=== PATIENT | female | born 1965 ===

== ENCOUNTER 2020-09-21 09:46 | Outpatient (REF) | payer OTHER, SELFPAY | END 2020-09-21 09:47 | disposition home or self-care (01) | LOC: HO.LAB 09:46 | PROVIDERS: PCP Hospitalist; Visit Provider Internal Medicine | DX: Z20.828 Contact with and (suspected) exposure to other viral communicable diseases (principal) | CPT/HCPCS: C9803; U0003 ==

== ENCOUNTER 2020-09-28 08:56 | Outpatient (REF) | payer OTHER, SELFPAY ==
--- NOTE | 2020-09-28 09:22 | XR_ITS ---
EXAMINATION: XR HAND, RIGHT CLINICAL INFORMATION: Pain in the joints of the right hand COMPARISON: 05/22/2020 TECHNIQUE: PA, lateral, and oblique views of the right hand. FINDINGS: There is no fracture or dislocation. Alignment is anatomic. Joint space narrowing at the interphalangeal joints, particularly at the proximal interphalangeal joint of the fifth digit and distal interphalangeal joint of the fourth digit. Small osteophytes are noted. Small osteophytes at the first carpometacarpal joint. No osseous erosion. Mild soft tissue swelling. XR/XR hand RT min 3V IMPRESSION: Mild arthritic changes, mostly throughout the interphalangeal joints.
[2020-09-28 10:33] LABS: Hematocrit 42.9 % (37-47); Hemoglobin 13.7 g/dl (12.0-16.0); Mean Corpuscular HGB Conc 31.9 g/dl (31.0-35.0); Mean Corpuscular Hemoglobin 28.4 pg (27.0-33.0); Mean Platelet Volume 10.1 fL (9.4-12.3); Platelet Count 310 X10*3/uL (160-400); Red Blood Count 4.82 X10*6/uL (4.20-5.50); Red Cell Distribution Width 13.2 % (11.0-16.0); White Blood Count 6.2 X10*3/uL (4.8-10.8)
[2020-09-28 11:27] LABS: Alanine Aminotransferase 17 U/L (0-31); Albumin Level 4.3 g/dL (3.5-5.0); Alkaline Phosphatase 82 U/L (39-117); Anion Gap 13 (12-20); Aspartate Amino Transferase 19 U/L (5-31); Bilirubin Direct 0.2 mg/dL (0.0-0.5); Bilirubin Total 0.5 mg/dL (0.0-1.0); Blood Urea Nitrogen 14 mg/dL (9-16); Calcium 9.5 mg/dL (8.4-10.2); Carbon Dioxide 27 mmol/L (22-29); Chloride 104 mmol/L (96-108); Cholesterol 177 mg/dL; Estimated Glomerular Filt Rate > 60; Glucose Random 105 mg/dL (60-115); HDL Cholesterol 42 mg/dL; LDL Cholesterol Calculated 98 mg/dl; Potassium 3.9 mmol/l (3.3-5.1); Sodium 140 mmol/L (135-145); Total Protein 7.8 g/dL (6.5-8.0); Triglycerides 188 mg/dL; Uric Acid 6.2 mg/dL (2.4-5.7)
[2020-09-28 11:34] LABS: TSH reflex Free T4 0.79 mIU/mL (0.32-4.0)
[2020-09-28 11:38] LABS: Rheumatoid Factor < 15.0 IU/mL (<15.0)
[2020-09-28 11:41] LABS: Erythrocyte Sedimentation Rate 21 MM/HR (0-20)
[2020-09-30 17:56] LABS: CRP High Sensitivity 6.4 mg/L
== END 2020-09-28 08:57 | disposition home or self-care (01) ==
LOC: HO.LAB 08:56
PROVIDERS: PCP Hospitalist; Visit Provider Hospitalist
DX: M25.541 Pain in joints of right hand (principal)
CPT/HCPCS: 36415; 73130; 80048; 80061; 80076; 84443; 84550; 85027; 85652; 86141; 86431

== ENCOUNTER 2020-10-08 14:02 | Outpatient (REF) | payer OTHER, SELFPAY | END 2020-10-08 14:03 | disposition home or self-care (01) | LOC: HO.LAB 14:02 | PROVIDERS: Visit Provider Internal Medicine | DX: Z20.828 Contact with and (suspected) exposure to other viral communicable diseases (principal) | CPT/HCPCS: C9803; U0003 ==

== ENCOUNTER 2020-10-26 10:46 | Outpatient (REF) | payer OTHER, SELFPAY ==
[2020-10-26 14:13] LABS: Erythrocyte Sedimentation Rate 26 MM/HR (0-20)
[2020-10-26 14:36] LABS: C Reactive Protein 0.68 mg/dL (< or = 0.50); Uric Acid 5.9 mg/dL (2.4-5.7)
== END 2020-10-26 10:47 | disposition home or self-care (01) ==
LOC: HO.WFDLDS 10:46
PROVIDERS: PCP Hospitalist; Visit Provider Hospitalist
DX: M19.041 Primary osteoarthritis, right hand (principal)
CPT/HCPCS: 36415; 84550; 85652; 86140

== ENCOUNTER 2021-03-24 11:50 | Outpatient (REF) | payer OTHER, SELFPAY ==
[2021-03-24 14:03] LABS: MANUAL DIFF FLAG NO
[2021-03-24 14:10] LABS: Basophils Absolute Auto 0.1 X10*3/uL (0.0-0.2); Basophils Percent Auto 0.5 % (0-2); Eosinophils Absolute Auto 0.2 X10*3/uL (0.0-0.4); Eosinophils Percent Auto 1.9 % (0-4); Hematocrit 41.8 % (37-47); Hemoglobin 13.6 g/dl (12.0-16.0); Imm Gran Abs Auto 0.02 X10*3/uL (0.00-0.03); Imm Gran Pct Auto 0.2 % (0.0-0.4); Lymphocytes Absolute Auto 2.3 X10*3/uL (1.2-4.9); Lymphocytes Percent Auto 24.1 % (20-40); Mean Corpuscular HGB Conc 32.5 g/dl (31.0-35.0); Mean Corpuscular Hemoglobin 28.7 pg (27.0-33.0); Mean Corpuscular Volume 88.2 fL (80-98); Mean Platelet Volume 10.1 fL (9.4-12.3); Monocytes Absolute Auto 0.7 X10*3/uL (0.1-1.2); Monocytes Percent Auto 7.6 % (2-11); Neutrophils Absolute Auto 6.3 X10*3/uL (2.0-8.3); Neutrophils Percent Auto 65.7 % (45-73); Platelet Count 359 X10*3/uL (160-400); Red Blood Count 4.74 X10*6/uL (4.20-5.50); Red Cell Distribution Width 13.2 % (11.0-16.0); White Blood Count 9.5 X10*3/uL (4.8-10.8)
[2021-03-24 14:34] LABS: B Type Natriuretic Peptide < 10 pg/mL (<100); Troponin-I High Sensitivity < 3.5 ng/L (<3.5-17.0)
[2021-03-24 14:42] LABS: Alanine Aminotransferase 21 U/L (0-31); Albumin Level 4.3 g/dL (3.5-5.0); Alkaline Phosphatase 87 U/L (39-117); Anion Gap 13 (12-20); Aspartate Amino Transferase 17 U/L (5-31); Bilirubin Total 0.3 mg/dL (0.0-1.0); Blood Urea Nitrogen 17 mg/dL (9-16); Calcium 9.7 mg/dL (8.4-10.2); Carbon Dioxide 26 mmol/L (22-29); Chloride 105 mmol/L (96-108); Estimated Glomerular Filt Rate 57; Glucose Random 137 mg/dL (60-115); Sodium 140 mmol/L (135-145)
[2021-03-24 15:12] LABS: Estimated Average Glucose 114 mg/dL; Hemoglobin A1c % 5.6 %
== END 2021-03-24 11:51 | disposition home or self-care (01) ==
LOC: HO.WFDLDS 11:50
PROVIDERS: Visit Provider Physician Assistant
DX: R07.9 Chest pain, unspecified (principal); M54.9 Dorsalgia, unspecified; R29.898 Other symptoms and signs involving the musculoskeletal system; M54.41 Lumbago with sciatica, right side; G89.29 Other chronic pain; R20.0 Anesthesia of skin; E11.9 Type 2 diabetes mellitus without complications
CPT/HCPCS: 36415; 80053; 83036; 83880; 84484; 85025

== ENCOUNTER 2021-03-25 09:27 | Outpatient (REF) | payer OTHER, SELFPAY ==
--- NOTE | ~2021-03-25 | XR_ITS ---
EXAMINATION: XR CHEST CLINICAL INFORMATION: Chest pain COMPARISON: Previous chest x-ray most recent October 2019 TECHNIQUE: 2 views of the chest were obtained. FINDINGS: The cardiac and mediastinal contours are stable. The lungs are clear. There is no pleural effusion or pneumothorax. There are degenerative changes of the spine. XR/XR chest 2V IMPRESSION: No evidence for acute disease in the chest.
--- NOTE | ~2021-03-25 | XR_ITS ---
EXAMINATION: XR LUMBOSACRAL SPINE CLINICAL INFORMATION: Lumbago with sciatica, right side. COMPARISON: None TECHNIQUE: Three views of the lumbosacral spine. FINDINGS: There is normal lumbar lordosis. The vertebral heights and alignment is normal. There is loss of L1-L2, L2-L3 and minimal loss of L5-S1 disc heights. There is moderate right L4-L5 and mild L5-S1 facet joint arthropathy and hypertrophy. No acute fracture or lytic process seen. The paravertebral soft tissues are normal. XR/XR lumbar spine 2-3V IMPRESSION: There is moderate right L4-L5 and L5-S1 facet joint arthropathy.
== END 2021-03-25 09:28 | disposition home or self-care (01) ==
LOC: HO.XRAY 09:27
PROVIDERS: PCP Hospitalist; Visit Provider Physician Assistant
DX: R07.9 Chest pain, unspecified (principal); M54.6 Pain in thoracic spine; G89.29 Other chronic pain; M54.41 Lumbago with sciatica, right side
CPT/HCPCS: 71046; 72100

== ENCOUNTER 2021-04-29 11:01 | Outpatient (REF) | payer OTHER, SELFPAY ==
--- NOTE | ~2021-04-29 | MM_ITS ---
EXAMINATION: MM SCREENING DIGITAL BREAST TOMOSYNTHESIS, BILATERAL CLINICAL INFORMATION: Screening. Asymptomatic. The lifetime risk of breast cancer based on the Tyrer-Cuzick Model is 6%. COMPARISON: Mammography: 05/13/2019, 04/24/2018, 04/02/2017 TECHNIQUE: Digital breast tomosynthesis is performed in both the craniocaudal and mediolateral oblique views along with computer-aided detection (CAD). Synthesized 2D images are generated from the tomosynthesis. FINDINGS: There are scattered areas of fibroglandular density (ACR BI-RADS breast composition Category b). There are no significant masses, abnormal calcifications, or other abnormalities. Parenchymal pattern is similar to prior studies. No developing density. MM/MM tomosynthesis screening BI IMPRESSION: No mammographic evidence of malignancy. ASSESSMENT: BI-RADS 1: Negative RECOMMENDATION: Routine annual mammography screening. This patient's information was entered into a reminder system with a target due date for their next mammogram.
== END 2021-04-29 11:02 | disposition home or self-care (01) ==
LOC: HO.MAMMO 11:01
PROVIDERS: Visit Provider Hospitalist
DX: Z12.31 Encounter for screening mammogram for malignant neoplasm of breast (principal)
CPT/HCPCS: 77063; 77067

== ENCOUNTER → 2021-06-29 09:51 | Outpatient (BNVA) | payer OTHER, SELFPAY | PROVIDERS: PCP Family Medicine; Visit Provider Nurse Practitioner Family | DX: M47.816 Spondylosis without myelopathy or radiculopathy, lumbar region (principal); M53.3 Sacrococcygeal disorders, not elsewhere classified | CPT/HCPCS: 99202 ==

== ENCOUNTER → 2021-07-13 13:26 | Outpatient (BNVA) | payer OTHER, SELFPAY | PROVIDERS: PCP Family Medicine; Visit Provider Nurse Practitioner Family | DX: M47.816 Spondylosis without myelopathy or radiculopathy, lumbar region (principal); M53.3 Sacrococcygeal disorders, not elsewhere classified; M25.562 Pain in left knee; M25.561 Pain in right knee; Z88.5 Allergy status to narcotic agent; Z88.0 Allergy status to penicillin; Z88.8 Allergy status to other drugs, medicaments and biological substances; Z79.899 Other long term (current) drug therapy | CPT/HCPCS: 99212 ==

== ENCOUNTER → 2021-08-05 12:59 | Outpatient (BNVA) | payer OTHER, SELFPAY | PROVIDERS: Visit Provider Nurse Practitioner Family | DX: Z51.81 Encounter for therapeutic drug level monitoring (principal); M47.816 Spondylosis without myelopathy or radiculopathy, lumbar region; M53.3 Sacrococcygeal disorders, not elsewhere classified | CPT/HCPCS: 99212 ==

== ENCOUNTER → 2021-08-10 10:13 | Outpatient (BNVA) | payer OTHER, SELFPAY | PROVIDERS: PCP Hospitalist; Visit Provider Nurse Practitioner Family | DX: M47.816 Spondylosis without myelopathy or radiculopathy, lumbar region (principal); M17.0 Bilateral primary osteoarthritis of knee | CPT/HCPCS: 99212 ==

== ENCOUNTER 2021-08-16 09:32 | Outpatient (RCR) | payer OTHER, SELFPAY ==
--- NOTE | 2021-08-16 12:41 | MHC.PT.EP ---
[facility] [place] Office [place] Office [place] Office [address] Paulina Echols [address] [phone] F: [phone] F: [phone] F: [phone] F: [phone] Physical Therapy Plan of Care Date of Evaluation: Date of Surgery: n/a Diagnosis: sacrococcygeal disorder Assessment: Pt is a 56/yo F referred to PT for eval/treat of sacrococcygeal disorder. Signs and symptoms are consistent with lumbosacral and illiosacral disorder primary affecting R side more than L resulting in significant decrease in tolerance for WB activities like standing and ambulating, decreased tolerance to perform her personal care, difficulty with bed mobility, disrupted sleep, decreased tolerance for lifting objects off of the floor, and ability to participate in her social activities with family and peers. Functional limitations are secondary to decreased lumbar and hip ROM with empty end feel in all direction primary effecting R side, decreased R LE weight bearing and forward lean in standing, gait deviation (potentially d/t pt?s chief c/o), L ASIS elevated (LLD), hx of fall at the site of pain, and significant pain with radicular symptoms R side (symptoms centralized with extension). pt is deemed appropriate to receive skilled PT to address her physical impairment and improve her functional ability. Frequency and Duration: The patient will be seen 2x/wk for 5 wks Short Term Goals: Iniitate HEP w/ evidence of compliance pt will reports less than 4/10 pain at rest Shelter Goals: I w/ HEP pt will be able to able to perform her personal care without increased Symptoms; initially - pt is unable to perform any personal care d/t pain or without the help. pt will be able to ambulate for at least an hour; initial - her pain prevents her from walking intermediate distance pt will improve her Chet score by at least 15 points; initial score 36/50 Treatment Plan: Modalities to reduce pain, spasms and effusion. Manual therapy to restore motion and function. Therapeutic exercise to improve strength and flexibility. Neuromuscular re-education for posture and balance. Therapeutic activities to return to functional activities of daily living. Electronically signed by: Tyshawn Cross, PT Please sign and return to therapist. Thank you for your referral.
--- NOTE | 2021-11-28 10:31 | MHC.PT.DC ---
[facility] [place] Office [place] Office [place] Office [address] Paulina Echols [address] [phone] F: [phone] F: [phone] F: [phone] F: [phone] Physical Therapy Discharge Report Diagnosis: sacrococcygeal disorder Date of Surgery: n/a Date of Evaluation: 08/16/21 Date of Discharge: 11/28/21 Treatments to Date: 1 Cancellations to Date: 3 No Shows to Date: 3 Discharge Status: Visit Non-compliance Discharge Summary: Pt did not f/u with therapy after her initial eval despite outreach. DC d/t visit non compliance. Electronically signed by: Tyshawn Merchant PT. Please sign and return to therapist. Thank you for your referral.
== END 2021-11-28 10:31 | disposition home or self-care (01) ==
LOC: HO.PTCHIC 09:32
PROVIDERS: PCP Family Medicine; Visit Provider Nurse Practitioner Family
DX: M53.3 Sacrococcygeal disorders, not elsewhere classified (principal)
CPT/HCPCS: 97014; 97110; 97161

== ENCOUNTER 2021-09-12 12:34 | Outpatient (REF) | payer OTHER, SELFPAY | END 2021-09-12 12:35 | disposition home or self-care (01) | LOC: HO.LNP 12:34 | PROVIDERS: Visit Provider Physician Assistant Medical | DX: N39.0 Urinary tract infection, site not specified (principal) | CPT/HCPCS: 87086; 87088; 87186 ==

== ENCOUNTER 2021-10-20 19:03 | Outpatient (REF) | payer OTHER, SELFPAY | END 2021-10-20 19:04 | disposition home or self-care (01) | LOC: HO.LNP 19:03 | PROVIDERS: Visit Provider Hospitalist | DX: N39.0 Urinary tract infection, site not specified (principal) | CPT/HCPCS: 87086; 87088; 87186 ==

== ENCOUNTER 2022-04-20 10:27 | Outpatient (REF) | payer OTHER, SELFPAY ==
[2022-04-20 15:08] LABS: CT PCR NOT DETECTED (Not Detect.); NG PCR NOT DETECTED (Not Detect.)
[2022-04-27 12:46] LABS: HPV mRNA E6/E7 rflx Not Detected (Not Detected)
== END 2022-04-20 10:28 | disposition home or self-care (01) ==
LOC: HO.LAB 10:27
PROVIDERS: Visit Provider Advanced Practice Midwife
DX: Z01.419 Encounter for gynecological examination (general) (routine) without abnormal findings (principal); Z11.51 Encounter for screening for human papillomavirus (HPV); Z20.2 Contact with and (suspected) exposure to infections with a predominantly sexual mode of transmission
CPT/HCPCS: 87491; 87591; 87624; 88142

== ENCOUNTER 2022-05-30 09:04 | Outpatient (REF) | payer OTHER, SELFPAY ==
[2022-05-30 11:24] LABS: Hematocrit 41.4 % (37.0-47.0); Hemoglobin 13.4 g/dl (12.0-16.0); Mean Corpuscular HGB Conc 32.4 g/dl (31.0-35.0); Mean Corpuscular Hemoglobin 28.2 pg (27.0-33.0); Mean Platelet Volume 9.8 fL (9.4-12.3); Platelet Count 343 X10*3/uL (160-400); Red Blood Count 4.76 X10*6/uL (4.20-5.50); Red Cell Distribution Width 13.5 % (11.0-16.0); White Blood Count 6.7 X10*3/uL (4.8-10.8)
[2022-05-30 11:36] LABS: Estimated Average Glucose 117 mg/dL; Hemoglobin A1c % 5.7 %
[2022-05-30 11:51] LABS: Alanine Aminotransferase 20 U/L (0-31); Albumin Level 4.3 g/dL (3.5-5.0); Alkaline Phosphatase 82 U/L (39-117); Anion Gap 12 (12-20); Aspartate Amino Transferase 19 U/L (5-31); Bilirubin Total 0.4 mg/dL (0.0-1.0); Blood Urea Nitrogen 13 mg/dL (9-16); Calcium 9.2 mg/dL (8.4-10.2); Carbon Dioxide 28 mmol/L (22-29); Chloride 104 mmol/L (96-108); Cholesterol 177 mg/dL; Estimated Glomerular Filt Rate > 60; Glucose Random 95 mg/dL (60-115); HDL Cholesterol 41 mg/dL; LDL Cholesterol Calculated 96 mg/dl; Potassium 4.3 mmol/L (3.3-5.1); Sodium 140 mmol/L (135-145); Total Protein 7.9 g/dL (6.5-8.0); Triglycerides 204 mg/dL
== END 2022-05-30 09:05 | disposition home or self-care (01) ==
LOC: HO.WFDLDS 09:04
PROVIDERS: Visit Provider Hospitalist
DX: Z00.00 Encounter for general adult medical examination without abnormal findings (principal); E11.9 Type 2 diabetes mellitus without complications
CPT/HCPCS: 36415; 80053; 80061; 83036; 84443; 85027

== ENCOUNTER → 2022-06-06 14:52 | Outpatient (BNVA) | payer OTHER, SELFPAY | PROVIDERS: PCP Family Medicine; Referring Provider Family Medicine; Visit Provider Internal Medicine Cardiovascular Disease | DX: R07.9 Chest pain, unspecified (principal); R00.2 Palpitations | CPT/HCPCS: 99202 ==

== ENCOUNTER 2022-06-26 10:55 | Outpatient (REF) | payer OTHER, SELFPAY ==
--- NOTE | ~2022-06-26 | MM_ITS ---
EXAMINATION: MM SCREENING DIGITAL BREAST TOMOSYNTHESIS, BILATERAL CLINICAL INFORMATION: Screening. Asymptomatic. The lifetime risk of breast cancer based on the Tyrer-Cuzick Model is 11%. COMPARISON: Mammography: 04/29/2021, 05/13/2019, 04/24/2018, 04/02/2017 TECHNIQUE: Digital breast tomosynthesis is performed in both the craniocaudal and mediolateral oblique views along with computer-aided detection (CAD). Synthesized 2D images are generated from the tomosynthesis. FINDINGS: There are scattered areas of fibroglandular density (ACR BI-RADS breast composition Category b). There are no significant masses, abnormal calcifications, or other abnormalities. There is no developing density or architectural abnormality. There are no significant changes from prior studies. The axilla and skin contours are unremarkable. MM/MM tomosynthesis screening BI IMPRESSION: No mammographic evidence of malignancy. ASSESSMENT: BI-RADS 1: Negative RECOMMENDATION: Routine annual mammography screening. This patient's information was entered into a reminder system with a target due date for their next mammogram.
== END 2022-06-26 10:56 | disposition home or self-care (01) ==
LOC: HO.MAMMO 10:55
PROVIDERS: PCP Family Medicine; Visit Provider Family Medicine
DX: Z12.31 Encounter for screening mammogram for malignant neoplasm of breast (principal)
CPT/HCPCS: 77063; 77067

== ENCOUNTER → 2022-07-12 08:55 | Outpatient (REF) | payer OTHER, SELFPAY ==
--- NOTE | ~2022-07-12 | NM_ITS ---
EXERCISE MYOCARDIAL PERFUSION STUDY INDICATION: Chest pain, assess for coronary disease and ischemia TECHNIQUE: The patient was brought in for an exercise perfusion study on 07/12/2022. Patient performed exercise as per Ayan protocol and was injected 25 mCi of sestamibi once target heart rate was achieved. Images were obtained using the SPECT gamma camera interlaced with the gating device. Images were obtained in supine position. Resting perfusion study was performed on 07/13/2022. Patient was administered 25 mCi of sestamibi intravenously at rest. Images were then obtained in supine position. Total DLP 89mGy-cm. Images were processed with the software and compared side to side in short axis, horizontal long axis and vertical long axis views. FINDINGS: Raw images were reviewed. The stress perfusion study showed no significant perfusion abnormality. Both uncorrected as well as CT attenuation corrected images reviewed. The gated study shows normal LV systolic function with calculated LVEF of 69%. LV cavity is normal in size. The gated study shows normal wall thickening and contraction of segments. Resting study shows no significant perfusion abnormality. Gating at rest reveals normal wall motion with ejection fraction at 54%. The findings are consistent with no reversible or fixed perfusion abnormality. NM/NM cardiolite stress test IMPRESSION: 1. Myocardial perfusion imaging study shows normal myocardial perfusion. 2. Gated LVEF is 69% during stress and 54% during rest. 3. Transient ischemic dilatation not present. EKG component of the test reported separately.
--- NOTE | 2022-07-12 09:01 | CA_ITS ---
Acquisition Time: 2022-07-12 09:15:15 Total Exercise Time: 00:06:15 Test Indications: Abnormal ECG Medications: ALBUTEROL LOSARTAN Protocol: AUTUMN Max HR: 151 BPM 91% of Pred: 165 BPM Max BP: 142/082 mmHG Max Work Load: 7.3 METS Exercise stress test with exercise 6 min 15 sec of Autumn protocol, with mild sob, no chest discomfort, with isolated PVCs, with normotensive response to exercise, without EKG changes meeting criteria for ischemia. Nuclear images pending. Test reviewed with Dr Nayak Referred By: Tony Nayak Overread By: DIANA FREITAS
--- NOTE | 2022-07-12 09:01 | HM_ITS ---
* Total monitoring time 6 days and 23 hours. * Underlying rhythm is sinus. Average rate 79/Min. Range 40 to 122/Min. * No significant pauses. * Rare ventricular ectopy. 3 morphologies. Few couplets. Overall burden less than 1% * Very rare supraventricular ectopy with minimal burden. * No patient events. MTDD
== END ==
LOC: HO.CARD 08:55
PROVIDERS: PCP Family Medicine; Visit Provider Internal Medicine Cardiovascular Disease
DX: R07.9 Chest pain, unspecified (principal); R00.2 Palpitations
CPT/HCPCS: 78452; 93017; 93242; A9500

== ENCOUNTER 2022-07-17 17:16 | Emergency (ER) | payer OTHER, SELFPAY ==
--- NOTE | ~2022-07-17 | XR_ITS ---
EXAMINATION: XR hand wrist LT CLINICAL INFORMATION: Reason for Exam pain COMPARISON: Left hand radiographs 07/29/2018 TECHNIQUE: 3 views left hand and scaphoid view left wrist FINDINGS: No acute fracture or dislocation. Joint spaces at the wrist are maintained. No chondrocalcinosis or erosions. Scapholunate interval is preserved. MCP joint spaces are maintained. Mild IP joint osteoarthritic changes characterized by subchondral sclerosis and small osteophytes, most prominently at the fifth DIP joint. XR/XR hand wrist LT IMPRESSION: 1. No acute osseous injury. 2. Mild IP joint osteoarthritis.
[2022-07-17 17:24] VITALS: BP 139/82; PULSE 76; RESP 16; TEMP 36.8; O2SAT 99; BMI 33.3
--- NOTE | 2022-07-17 18:14 | ED_ITS ---
HPI - Extremity Problem General Chief complaint: Extremity Problem Stated complaint: L Wrist Swelling No Injury Time Seen by Provider: 07/17/22 18:07 Source: patient Mode of arrival: ambulatory Limitations: no limitations History of Present Illness HPI Narrative: 57 yo female with history of asthma, HTN, RA, depression who is left handed presents with 3 weeks of left wrist pain/swelling despite using tylenol at home. Has appointment with orthopedics end of this month. No weakness, numbness, tingling. No known injury or trauma. Related Data Home Medications Medication Instructions Recorded Confirmed acetaminophen 500 mg tablet 500 mg PO Q6H PRN 06/28/22 (Tylenol Extra Strength) Previous Rx's Medication Instructions Recorded blood-glucose meter (FreeStyle #1 ea 11/19/20 Lite Meter kit) cane #1 ea 04/07/21 lancets 28 gauge (FreeStyle 1 gauge topical BID PRN 05/12/21 Lancets) hypoglycemia #100 caps blood sugar diagnostic (FreeStyle #100 strips 03/06/22 Lite Strips) losartan 25 mg tablet 25 mg PO BID #60 tabs 05/31/22 blood pressure monitor #1 ea 06/27/22 diclofenac sodium 1 % topical gel 2 g topical QID 30 days #100 grams 06/28/22 (Voltaren Arthritis Pain) Allergies Allergy/AdvReac Type Severity Reaction Status Date / Time codeine [CODEINE] Allergy Severe VOMITING Verified 06/28/22 14:44 buprenorphine Allergy Intermediate dizziness,nausea, Verified 06/28/22 14:44 vomiting lisinopril Allergy Intermediate cough Verified 06/28/22 14:44 naproxen [Naprosyn] Allergy Intermediate vomitting Verified 06/28/22 14:44 Penicillins [PENICILLINS] Allergy Intermediate RASH Verified 06/28/22 14:44 Review of Systems Review of Systems: Yes all other systems are reviewed and are negative Constitutional: Constitutional: Reports no additional constitutional complaints, Denies body ache(s), Denies chills, Denies fever(s), Denies headache(s) and Denies weakness Eyes: Eyes: Reports no additional eye complaints and Denies change in vision ENT: Reports system reviewed and no additional complaints, except as documented, Denies dizziness, Denies headache(s), Denies nasal congestion, Denies nasal discharge and Denies neck pain Cardiovascular: Cardiovascular: Reports no additional cardiovascular complaints, Denies chest pain, Denies leg edema and Denies dyspnea Respiratory: Respiratory: Reports no additional respiratory complaints, Denies cough and Denies dyspnea Gastrointestinal: Gastrointestinal: Reports no additional gastrointestinal complaints, Denies abdominal pain, Denies diarrhea, Denies nausea and Denies vomiting Genitourinary: Genitourinary: Reports no additional female genitourinary c omplaints and Denies urinary incontinence Musculoskeletal: Musculoskeletal: Reports no additional musculoskeletal complaints, Denies back pain, Reports arthralgias, Reports joint swelling, Reports limited range of motion, Denies neck pain, Denies numbness and Denies tingling Integumentary/Breasts: Skin/Breast: Reports system reviewed and no additional complaints, except as docu and Denies rash Neurologic: Reports system reviewed and no additional complaints, except as documented, Denies Abnormal speech present, Denies dizziness, Denies headache(s), Denies numbness, Denies tingling and Denies weakness PMFSH Past Medical History Attestation statement: The following information was validated with the patient. Source: old records reviewed and nursing notes reviewed Medical History Asthma History of depression HTN, goal below 130/80 Surgical History History of bilateral carpal tunnel release History of cholecystectomy History of sleeve gastrectomy History of trigger finger Family History Family History Father No problems noted. Mother Stroke Heart attack Uterine cancer Smoker Lung cancer Sister S/P KIERAN-BSO (total abdominal hysterectomy and bilateral salpingo- oophorectomy) Other Mental health disorder Substance use disorder Social History Social History Housing: Apartment Alcohol intake: never Patient Tobacco Use Status: Former Tobacco user Tobacco use type: Cigarette e-Cigarette/Vaping Use: Never Used Use of substances other than those prescribed or required for medical reasons: No Advance Directives: No Advance Directives Information Provided: No Patient : No service: No Current occupational status: disabled Sexual orientation: Straight/Heterosexual Gender identity: Female Cognitive needs: No Hearing needs: No Vision needs: Yes Physical Exam Vital Signs: Vital Signs: Last Vital Signs Temp 98.2 F 07/17/22 17:24 Pulse 76 07/17/22 17:24 Resp 16 07/17/22 17:24 BP 139/82 07/17/22 17:24 Pulse Ox 99 07/17/22 17:24 O2 Del Method 07/17/22 17:24 BMI result Body Mass Index 33.3 Const: General: cooperative, healthy appearing, comfortable and no acute distress Orientation/consciousness: patient oriented x3 Limitations: no limitations HEENT: Head: Yes normal to inspection Ears: hearing grossly normal bilaterally General nose exam: Normal external nose present Face and sinus: Yes normal facial exam Mouth: Normal oral and palatal mucosa present Throat: Yes posterior oropharynx normal Eyes: General: appearance normal, both eyes and all related structures Pupils: Equal, round and reactive pupils present Neck: Neck: Yes normal visual inspection Chest: Chest palpation & inspection: normal inspection of the chest Resp: Effort & Inspection: normal respiratory effort Auscultation: clear to auscultation bilaterally Cardio: Rate: regular rate Rhythm: regular rhythm Peripheral pulses: Peripheral pulses 2+ throughout GI: Inspection: Yes normal to inspection Palpation (GI): Soft to palpation and nontender Auscultation: normal bowel sounds Back/Spine/Pelvis: Thoracic/Lumbar Spine: thoracic and lumbar spine normal to inspection Skin: General skin exam: no rashes or lesions noted Neuro: General: patient oriented x3, no focal motor deficits and normal sensation to monofilament Cranial nerves: Yes Equal, round and reactive pupils present Cognition (Neuro): normal cognition Speech: No Abnormal speech present Gait exam (Neuro): Normal gait present Motor exam (neuro): 5/5 motor strength present throughout Extrem: Other: Positive Randy test. Tenderness over the medial distal left radius. Full range of motion. Neurovascularly intact distally. Palpable radial and ulnar pulses. Negative Tinel and Phalen sign General: Yes normal to inspection MDM - Extremity (Nontraumatic) MDM Narrative Medical decision making narrative: This is a 57-year-old female who is left-hand dominant who presents with 3 weeks of left wrist pain and swelling with no known injury or trauma. Positive Randy's test. Likely de Quervain. X-ray from triage shows arthritic changes. Patient has follow-up appointment with Orthopedics into this month. She has been trying Tylenol with no relief. She also has underlying rheumatoid arthritis. We discussed a course of prednisone but patient does not want to take this due to side effects in the past. She does have an allergy listed as vomiting to naproxen but is willing to try some ibuprofen which she has been able to tolerate in the past. She will be placed in a cock-up splint. Recommend follow-up with orthopedics for persistent symptoms. Reviewed rice at home. Medical Records Attestation: I reviewed the patient's medical records. Lab Data Attestation: I reviewed the patient's lab results. Discharge Plan Discharge Clinical Impression: Tendinitis, de Quervain's Patient Disposition: Home, Self-Care Instructions: De Quervain Disease (ED) Additional Instructions: Use the splint at all times Limit use of the hand. Apply ice. Take ibuprofen 600 mg 3 times daily as needed for pain. Take this with food. Keep your appointment with orthopedics as scheduled this month Prescriptions: No Action lancets [FreeStyle Lancets] 28 gauge misc 1 gauge topical BID PRN (Reason: hypoglycemia) Qty: 100 3RF (DME) FreeStyle Lite Strips Strip See Rx Instructions .ROUTE .COMPLEX Qty: 100 6RF Dose Instruction: USE NEEDED TWICE A DAY Rx Instructions: USE NEEDED TWICE A DAY losartan 25 mg tablet 25 mg PO BID Qty: 60 1RF Rx Instructions: take one daily for 5 days then increase to twice a day for bp target of at least 100/50 and no higher than 130/80 (DME) blood pressure monitor Kit See Rx Instructions .ROUTE .MEDSUPPLY Qty: 1 0RF Rx Instructions: Automatic, Digital. Dx: I10. Daily As directed, 999 days/lifetime (DME) cane Device See Rx Instructions .ROUTE .MEDSUPPLY Qty: 1 0RF Rx Instructions: Daily As directed, 999days/Lifetime. (DME) blood-glucose meter [FreeStyle Lite Meter] Kit See Rx Instructions .ROUTE .MEDSUPPLY Qty: 1 0RF Rx Instructions: for daily and prn blood sugars acetaminophen [Tylenol Extra Strength] 500 mg tablet 500 mg PO Q6H PRN diclofenac sodium [Voltaren Arthritis Pain] 1 % gel 2 g topical QID 30 Days Qty: 100 0RF Rx Instructions: apply to right shoulder Print Language: Swedish
--- NOTE | 2022-07-17 18:23 | PC.NURSE ---
patient a&ox3, c/o 06/21 left wrist pain, splint applied by tech per order, call sandra within reach, family at bedside, will continue to monitor
== END 2022-07-17 19:51 | disposition home or self-care (01) ==
PROVIDERS: Emergency Provider Emergency Medicine; PCP Family Medicine
DX: M65.4 Radial styloid tenosynovitis [de Quervain] (principal); R22.32 Localized swelling, mass and lump, left upper limb
CPT/HCPCS: 73110; 73130; 99283; 99284

== ENCOUNTER → 2022-07-26 12:49 | Outpatient (REF) | payer OTHER, SELFPAY ==
--- NOTE | 2022-07-26 12:54 | CA_ITS ---
Transthoracic Echocardiogram Patient (Last, First, Middle): Margot Kamara E Gender: Female Date of : 1965 Age: 57 Procedure Date: 07/26/2022 Procedure Type: Transthoracic Echocardiogram Location: OP Height: 149.86 cm Weight: 74.84 kg BSA: 1.70 m2 Heart Rate: bpm BP: 130 / 90 mmHg Grey Roll Man: TO Referring MD: Tony Nayak MD [employer] Mill Operator: Tony Nayak MD Symptoms: R00.2 - Palpitations Study Quality: Fair ECG Rhythm: Sinus Conclusions: - 1. Normal LV systolic function with grade 1 diastolic dysfunction 2. Normal cardiac valvular Doppler 3. Normal RV systolic pressure 4. No gross pericardial effusion Findings Left Ventricle Normal left ventricular size, thickness, and systolic function. The visually estimated ejection fraction is between 55-60%. Spectral Doppler is indicative of an impaired relaxation filling pattern. E/E prime ratio is <8, consistent with normal filling pressures. Evidence suggests grade I (mild) diastolic dysfunction. Right Ventricle Normal right ventricular cavity size and systolic function. Atria Both atria are normal in size. Interatrial shunt cannot be excluded. Aortic Valve Normal aortic valve structure and function. There is no aortic valve stenosis. There is no aortic valve regurgitation. Mitral Valve Normal mitral valve structure and function. There is trace mitral valve regurgitation. There is no mitral valve stenosis. Pulmonic Valve The pulmonic valve was not well visualized. Tricuspid Valve Likely normal tricuspid valve structure and function. There is trace tricuspid valve regurgitation. The right ventricular systolic pressure is normal. The right ventricular systolic pressure is 22 mmHg. Normal right atrial pressure. There is no evidence of pulmonary hypertension. Great Vessels All visible segments of the aorta are normal in size. The pulmonary artery was not well visualized. Venous The inferior vena cava is normal in size and collapses greater than 50% with inspiration. Pericardium/Pleural There is no evidence of pericardial effusion. Prior Study Comparison No prior study available for comparison. Measurements 2D Linear Measurements IVSd: 0.71 0.6-0.9/0.6-1.0 cm LVIDd: 4.30 3.9-5.3/4.2-5.9 cm LVIDd Index: 2.53 2.4-3.2/2.2-3.1 cm/m2 LVIDs: 2.59 2.0-3.6 cm LVPWd: 0.70 0.7-1.1 cm LA Diam: 2.50 2.7-3.8/3.0-4.0 cm LAIDs Index: 1.47 1.5-2.3 cm/m2 LV Mass: 110.73 67-162/88-224 g LV Mass Index: 65.13 43-95/49-115 g/m2 LVOT Diam: 2.00 3.0+(-)1.3 cm 2D Systolic Function EF 4C: 51.80 >55% EF 2C: 56.20 >55% Mitral Valve MV Pk E: 0.74 MV PK A: 0.75 MV Decel Time: 237.00 E/A: 1.00 E'Lateral: 9.36 E'Medial: 6.96 E/E' Med: 10.60 E/E' Lat: 7.90 PHT: 69.00 MVA PHT: 3.19 Decel Magoffin: 3.11 Aortic Valve AoV Pk Bobby: 1.31 AoV Mn Bobby: 0.92 AoV VTI: 0.25 AoV Pk Grad: 7.00 Aov Mn Grad: 4.00 ALEX Cont.VTI: 2.05 LVOT LVOT Pk Bobby: 0.85 LVOT Mn Bobby: 0.57 LVOT VTI: 0.17 LVOT Pk Grad: 3.00 LVOT Mn Grad: 1.00 LVOT Diam: 2.00 LVOT Area: 3.14 Diastolic Function MV Pk E: 0.74 MV Pk A: 0.75 E/A: 1.00 E'Medial: 6.96 E/E' Med: 10.60 E' Laterial: 9.36 E/E' Lat: 7.90 Right Ventricle TAPSE (mm): 20.40 TVS' Bobby: 10.10 Tricuspid Valve TR Pk Bobby: 2.17 TR Pk Grad: 19.00 RA Press: 3.00 RVSP: 22.00 Great Vessels Aorta Sinus of Valsalva: 3.28 2.0-3.5 cm Ao Asc: 3.40 2.1-3.4 cm Updated in Other Vendor System with Status of Final Tony Nayak MD electronically signed on 07/26/2022 5:55:21 PM with status of Final
== END ==
LOC: HO.CARD 12:49
PROVIDERS: PCP Family Medicine; Visit Provider Internal Medicine Cardiovascular Disease
DX: R00.2 Palpitations (principal)
CPT/HCPCS: 93306

== ENCOUNTER 2022-08-09 11:05 | Outpatient (REF) | payer OTHER, SELFPAY ==
[2022-08-09 13:51] LABS: MANUAL DIFF FLAG NO
[2022-08-09 13:54] LABS: Basophils Absolute Auto 0.1 X10*3/uL (0.0-0.2); Basophils Percent Auto 0.7 % (0-2); Eosinophils Absolute Auto 0.1 X10*3/uL (0.0-0.4); Eosinophils Percent Auto 1.6 % (0-4); Hematocrit 41.5 % (37.0-47.0); Hemoglobin 13.4 g/dl (12.0-16.0); Imm Gran Abs Auto 0.02 X10*3/uL (0.00-0.03); Imm Gran Pct Auto 0.2 % (0.0-0.4); Lymphocytes Absolute Auto 2.1 X10*3/uL (1.2-4.9); Lymphocytes Percent Auto 25.9 % (20-40); Mean Corpuscular HGB Conc 32.3 g/dl (31.0-35.0); Mean Corpuscular Hemoglobin 27.9 pg (27.0-33.0); Mean Corpuscular Volume 86.5 fL (80.0-98.0); Mean Platelet Volume 9.6 fL (9.4-12.3); Monocytes Absolute Auto 0.7 X10*3/uL (0.1-1.2); Neutrophils Absolute Auto 5.2 x10*3/uL (2.0-8.3); Neutrophils Percent Auto 63.6 % (45-73); Platelet Count 333 X10*3/uL (160-400); Red Cell Distribution Width 13.7 % (11.0-16.0); White Blood Count 8.1 X10*3/uL (4.8-10.8)
[2022-08-09 14:10] LABS: Alanine Aminotransferase 18 U/L (0-31); Albumin Level 4.4 g/dL (3.5-5.0); Alkaline Phosphatase 80 U/L (39-117); Anion Gap 18 (12-20); Aspartate Amino Transferase 17 U/L (5-31); Bilirubin Total 0.2 mg/dL (0.0-1.0); Blood Urea Nitrogen 17 mg/dL (9-16); C Reactive Protein 0.44 mg/dL (< or = 0.50); Calcium 9.3 mg/dL (8.4-10.2); Carbon Dioxide 25 mmol/L (22-29); Chloride 103 mmol/L (96-108); Estimated Glomerular Filt Rate > 60; Glucose Random 92 mg/dL (60-115); Potassium 4.3 mmol/L (3.3-5.1); Rheumatoid Factor < 15.0 IU/mL (<15.0); Sodium 142 mmol/L (135-145); Total Protein 8.1 g/dL (6.5-8.0)
[2022-08-09 14:38] LABS: Erythrocyte Sedimentation Rate 23 MM/HR (0-20)
[2022-08-11 14:21] LABS: Anti Nuclear Antibody Screen NEGATIVE (NEGATIVE)
[2022-08-13 00:17] LABS: HLA B27 Negative (Negative)
[2022-08-14 17:46] LABS: Cyclic Citrullinated Peptide <16 UNITS
== END 2022-08-09 11:06 | disposition home or self-care (01) ==
LOC: HO.10HDL 11:05
PROVIDERS: Visit Provider Student in an Organized Health Care Education/Training Program
DX: S62.002A Unspecified fracture of navicular [scaphoid] bone of left wrist, initial encounter for closed fracture (principal); M65.4 Radial styloid tenosynovitis [de Quervain]
CPT/HCPCS: 36415; 80053; 85025; 85652; 86038; 86039; 86140; 86200; 86431; 86812; 99212

== ENCOUNTER → 2022-12-06 11:00 | Outpatient (BNVA) | payer OTHER, SELFPAY | PROVIDERS: PCP Hospitalist; Visit Provider Student in an Organized Health Care Education/Training Program | DX: M77.8 Other enthesopathies, not elsewhere classified (principal) | CPT/HCPCS: 99212 ==

== ENCOUNTER → 2022-12-21 14:21 | Outpatient (BNVA) | payer OTHER, SELFPAY | PROVIDERS: PCP Hospitalist; Referring Provider Hospitalist; Visit Provider Internal Medicine Cardiovascular Disease | DX: I49.3 Ventricular premature depolarization (principal); R07.9 Chest pain, unspecified | CPT/HCPCS: 99212 ==

== ENCOUNTER 2023-03-06 13:28 | Outpatient (REF) | payer OTHER, SELFPAY ==
--- NOTE | ~2023-03-06 | XR_ITS ---
EXAMINATION: XR SHOULDER, RIGHT CLINICAL INFORMATION: Intermittent right shoulder pain. COMPARISON: 06/26/2017 TECHNIQUE: AP external rotation, Grashey, scapular Y, and axillary views of the right shoulder. FINDINGS: There is no evidence of acute fracture or dislocation of the right shoulder. Glenohumeral joint is maintained. Mild degenerative change of the acromioclavicular joint is noted. No widening of the coracoclavicular space is seen. There is calcific tendinitis present about the greater tuberosity. XR/XR shoulder RT min 2V IMPRESSION: Right shoulder calcific tendinitis. Appearance is improved since study of 06/26/2017.
== END 2023-03-06 13:29 | disposition home or self-care (01) ==
LOC: HO.HMGCX 13:28
PROVIDERS: PCP Hospitalist; Visit Provider Hospitalist
DX: M25.511 Pain in right shoulder (principal)
CPT/HCPCS: 73030

== ENCOUNTER 2023-03-28 08:52 | Emergency (ER) | payer OTHER, SELFPAY ==
[2023-03-28 08:57] VITALS: BP 130/80; PULSE 93; RESP 18; TEMP 36.1; O2SAT 96; BMI 32.0
[2023-03-28 09:17] LABS: MANUAL DIFF FLAG NO
[2023-03-28 09:20] LABS: Basophils Absolute Auto 0.1 X10*3/uL (0.0-0.2); Basophils Percent Auto 0.5 % (0-2); Eosinophils Absolute Auto 0.1 X10*3/uL (0.0-0.4); Eosinophils Percent Auto 0.9 % (0-4); Hematocrit 41.6 % (37.0-47.0); Hemoglobin 13.8 g/dl (12.0-16.0); Imm Gran Abs Auto 0.04 X10*3/uL (0.00-0.03); Imm Gran Pct Auto 0.3 % (0.0-0.4); Lymphocytes Absolute Auto 1.7 X10*3/uL (1.2-4.9); Lymphocytes Percent Auto 14.5 % (20-40); Mean Corpuscular HGB Conc 33.2 g/dl (31.0-35.0); Mean Corpuscular Hemoglobin 28.7 pg (27.0-33.0); Mean Corpuscular Volume 86.5 fL (80.0-98.0); Mean Platelet Volume 9.6 fL (9.4-12.3); Monocytes Absolute Auto 0.6 X10*3/uL (0.1-1.2); Monocytes Percent Auto 5.5 % (2-11); Neutrophils Absolute Auto 9.1 x10*3/uL (2.0-8.3); Neutrophils Percent Auto 78.3 % (45-73); Platelet Count 318 X10*3/uL (160-400); Red Blood Count 4.81 X10*6/uL (4.20-5.50); Red Cell Distribution Width 13.6 % (11.0-16.0); White Blood Count 11.6 X10*3/uL (4.8-10.8)
--- NOTE | 2023-03-28 09:20 | ED_ITS ---
HPI - General Adult General Chief complaint: General Medical Stated complaint: vaginal bleeding Time Seen by Provider: 03/28/23 09:19 Source: patient and food service attendant Mode of arrival: ambulatory Limitations: language barrier History of Present Illness HPI narrative: Patient is a 57-year-old female with history of recurrent UTIs, DM, HTN presenting with dysuria and hematuria since yesterday. Patient states that 3 weeks ago she was diagnosed with a UTI, took a 7 day course of antibiotics but is unsure which and states symptoms have fully resolved, then new symptoms began yesterday. She reports suprapubic discomfort, denies any other abdominal pain, denies any nausea, vomiting, diarrhea. She denies any back or flank pain. She denies any fevers. She is not taking any [id number] medications for her s ymptoms. MD complaint: dysuria, hematuria Onset (ago): day(s) Location: abdomen Quality: burning Associated symptoms: denies other symptoms Treatments prior to arrival: none Related Data Home Medications Medication Instructions Recorded Confirmed clonazepam 1 mg tablet 1 mg PO DAILY PRN 12/06/22 12/21/22 ondansetron HCl 4 mg tablet mg PO 12/06/22 12/21/22 zolpidem 10 mg tablet 10 mg PO BEDTIME PRN 12/06/22 12/21/22 blood sugar diagnostic (FreeStyle 02/05/23 Lite Strips) lancets 28 gauge (FreeStyle 1 gauge topical BID PRN 02/05/23 Lancets) hypoglycemia Previous Rx's Medication Instructions Recorded cane #1 ea 04/07/21 blood pressure monitor #1 ea 07/27/22 blood-glucose meter (FreeStyle #1 ea 02/05/23 Lite Meter kit) losartan 25 mg tablet 25 mg PO BID #60 tabs 02/05/23 cetirizine 10 mg tablet 10 mg PO DAILY #30 tabs 02/15/23 acetaminophen 650 mg 650 mg PO Q8H PRN pain #90 tabs 03/05/23 tablet,extended release (Tylenol 8 Hour) fluticasone propionate 220 2 puff inhalation BID 30 days #12 03/05/23 mcg/actuation HFA aerosol inhaler grams (Flovent HFA) fluticasone propionate 50 1 spray intranasal DAILY #16 grams 03/05/23 mcg/actuation nasal spray,suspension olopatadine 0.1 % eye drops 1 drp ophthalmic (eye) BID 1 month 03/05/23 (Pataday Twice Daily Relief) #5 mL pantoprazole 40 mg tablet,delayed 40 mg PO DAILY #90 tabs 03/05/23 release sertraline 100 mg tablet 150 mg PO QAM #45 tabs 03/05/23 cefpodoxime 100 mg tablet 100 mg PO BID #14 tabs 03/28/23 Allergies Allergy/AdvReac Type Severity Reaction Status Date / Time codeine [CODEINE] Allergy Severe VOMITING Verified 03/28/23 09:02 buprenorphine Allergy Intermediate dizziness,nausea, Verified 03/28/23 09:02 vomiting lisinopril Allergy Intermediate cough Verified 03/28/23 09:02 naproxen [Naprosyn] Allergy Intermediate vomitting Verified 03/28/23 09:02 Penicillins [PENICILLINS] Allergy Intermediate RASH Verified 03/28/23 09:02 Review of Systems Review of Systems: As per HPI. Yes all other systems are reviewed and are negative Constitutional: Constitutional: Reports as per HPI PMFSH Past Medical History Medical History Asthma History of depression HTN, goal below 130/80 Surgical History History of bilateral carpal tunnel release History of cholecystectomy History of sleeve gastrectomy History of trigger finger Family History Family History Father No problems noted. Mother Stroke Heart attack Uterine cancer Smoker Lung cancer Sister S/P KIERAN-BSO (total abdominal hysterectomy and bilateral salpingo- oophorectomy) Other Mental health disorder Substance use disorder Social History Social History Housing: Apartment Alcohol intake: never Patient Tobacco Use Status: Former Tobacco user Tobacco use type: Cigarette Smoked in Last 30 Days: No e-Cigarette/Vaping Use: Never Used Use of substances other than those prescribed or required for medical reasons: No Advance Directives: No service: No Current occupational status: disabled Sexual orientation: Straight/Heterosexual Gender identity: Female Cognitive needs: No Hearing needs: No Vision needs: Yes Physical Exam ED Vital Signs: Vital Signs - 24 hr 03/28/23 08:57 03/28/23 12:00 Temperature 96.9 F 98.1 F Pulse Rate 93 74 Respiratory Rate 18 18 Blood Pressure 130/80 135/87 Pulse Oximetry 96 98 Oxygen Delivery Method Room Air Room Air BMI result Body Mass Index 32.0 Const General: cooperative, healthy appearing and no acute distress Orientation/consciousness: oriented to person, oriented to place, oriented to time and patient oriented x3 Limitations: no limitations HENMT Head: Yes normocephalic and Yes atraumatic Ears: external ears normal General nose exam: Normal external nose present Face and sinus: Yes face symmetric Mouth: oropharynx normal and moist mucous membranes Throat: Yes uvula midline Eyes Pupils: Equal, round and reactive pupils present Neck Neck: Yes normal visual inspection and Yes supple Resp Effort & Inspection: normal respiratory effort and able to speak in complete sentences Auscultation: clear to auscultation bilaterally Cardio Rate: regular rate Rhythm: regular rhythm Heart sounds: S1 normal heart sound present and S2 normal heart sound present GI Inspection: Yes normal to inspection Palpation (GI): Soft to palpation, Tenderness to palpation present (GI) suprapubicly (mild), no guarding, not rigid and No Rebound tenderness present Auscultation: normoactive bowel sounds General: Yes no CVA tenderness Back/Spine/Pelvis Back: no CVA tenderness Skin General skin exam: elasticity normal and turgor normal Neuro General: oriented to person, oriented to place, oriented to time, patient orien haritha x3, moves all extremities, no focal motor deficits and CN's II-XI intact bilaterally Cranial nerves: Yes Equal, round and reactive pupils present Cognition (Neuro): normal cognition Extrem General: Yes full ROM, Yes no pedal edema and Yes no calf tenderness Psych Mental Status: mental status grossly normal Affect: normal affect Thought process: Normal thought process present Course Reevaluation(s) Reevaluation #1: Patient noted to have mild leukocytosis on labs, 3+ leukocytes and positive nitrites on UA. Unlikely pyelonephritis as patient is afebrile and has no CVA tenderness, only mild suprapubic abdominal pain. Will discharge home on cefpodoxime and instructed patient to follow up with PCP within 2 days. Return precautions discussed at bedside. Time: 12:57 Medical Decision Making Medical Decision Making MDM Narrative: Patient is a 57-year-old female with history of recurrent UTIs, DM, HTN presenting with dysuria and hematuria since yesterday after recently finishing a course of antibiotics for a UTI. On exam patient is awake, A+Ox3, nontoxic appearing, VS WNL, afebrile, abdomen soft, mildly TTP suprapubic, no CVA tenderness. Given reported history and physical exam findings, likely recurrent UTI. Less likely pyelonephritis as patient is afebrile, no CVA tenderness. Unlikely diverticulitis, ectopic , ovarian torsion, constipation. Plan: UA, labs, reassess Please refer to course for remaining clinical decision making. Differential Diagnosis Differential Diagnoses: The differential diagnosis associated with the presentation includes As above. Lab Data MDM Lab Attestation statement: I reviewed the patient's lab results. 03/28/23 09:10 03/28/23 09:10 Labs: Lab Results 03/28/23 03/28/23 03/28/23 Range/Units 09:10 09:10 09:59 WBC 11.6 H (4.8-10.8) X10*3/uL RBC 4.81 (4.20-5.50) X10*6/uL Hgb 13.8 (12.0-16.0) g/dl Hct 41.6 (37.0-47.0) % MCV 86.5 (80.0-98.0) fL MCH 28.7 (27.0-33.0) pg MCHC 33.2 (31.0-35.0) g/dl RDW 13.6 (11.0-16.0) % Plt Count 318 (160-400) X10*3/uL MPV 9.6 (9.4-12.3) fL Immature Gran % (Auto) 0.3 (0.0-0.4) % Neut % (Auto) 78.3 H (45-73) % Lymph % (Auto) 14.5 L (20-40) % Blair % (Auto) 5.5 (2-11) % Eos % (Auto) 0.9 (0-4) % Baso % (Auto) 0.5 (0-2) % Lymph # (Auto) 1.7 (1.2-4.9) X10*3/uL Blair # (Auto) 0.6 (0.1-1.2) X10*3/uL Eos # (Auto) 0.1 (0.0-0.4) X10*3/uL Baso # (Auto) 0.1 (0.0-0.2) X10*3/uL Abs Immat Gran (auto) 0.04 H (0.00-0.03) X10*3/uL Absolute Neuts (auto) 9.1 H (2.0-8.3) x10*3/uL Absolute Nucleated RBC 0.000 (0.0-0.012) X10*3/uL Nucleated RBC % (auto) 0.0 (0.0-0.2) /100WBC Sodium 142 140 (135-145) mmol/L Potassium 3.8 4.0 (3.3-5.1) mmol/L Chloride 107 106 (96-108) mmol/L Carbon Dioxide 26 26 (22-29) mmol/L Anion Gap 13 12 (12-20) BUN 16 17 H (9-16) mg/dL Creatinine 1.11 1.05 (0.5-1.4) mg/dL Estim Creat Clear Calc 49.4 52.2 Estimated GFR 51 54 Random Glucose 139 H 147 H (60-115) mg/dL Calcium 9.6 9.3 (8.4-10.2) mg/dL Total Bilirubin 0.5 0.4 (0.0-1.0) mg/dL Direct Bilirubin 0.1 (0.0-0.5) mg/dL AST 16 15 (5-31) U/L ALT 14 13 (0-31) U/L Alkaline Phosphatase 80 76 (39-117) U/L Total Protein 7.8 7.3 (6.5-8.0) g/dL Albumin 4.3 4.0 (3.5-5.0) g/dL Lipase 33 (8-78) U/L Urine Color Urine Appearance Urine pH (5.0-9.0) Ur Specific [place] (1.005-1.025) Urine Protein (Neg-Trace) mg/dL Urine Glucose (UA) (Negative) mg/dL Urine Ketones (Negative) mg/dL Urine Blood (Negative) Urine Nitrite (Negative) Ur Leukocyte Esterase (Negative) Urine RBC (0-2) /HPF Urine WBC (0-5) /HPF Ur Squamous Epith Cells (0-2) /HPF Urine Bacteria (None Seen) Hyaline Casts (0-2) /LPF Urine Test (NEGATIVE) 03/28/23 03/28/23 Range/Units 10:39 12:06 WBC (4.8-10.8) X10*3/uL RBC (4.20-5.50) X10*6/uL Hgb (12.0-16.0) g/dl Hct (37.0-47.0) % MCV (80.0-98.0) fL MCH (27.0-33.0) pg MCHC (31.0-35.0) g/dl RDW (11.0-16.0) % Plt Count (160-400) X10*3/uL MPV (9.4-12.3) fL Immature Gran % (Auto) (0.0-0.4) % Neut % (Auto) (45-73) % Lymph % (Auto) (20-40) % Blair % (Auto) (2-11) % Eos % (Auto) (0-4) % Baso % (Auto) (0-2) % Lymph # (Auto) (1.2-4.9) X10*3/uL Blair # (Auto) (0.1-1.2) X10*3/uL Eos # (Auto) (0.0-0.4) X10*3/uL Baso # (Auto) (0.0-0.2) X10*3/uL Abs Immat Gran (auto) (0.00-0.03) X10*3/uL Absolute Neuts (auto) (2.0-8.3) x10*3/uL Absolute Nucleated RBC (0.0-0.012) X10*3/uL Nucleated RBC % (auto) (0.0-0.2) /100WBC Sodium (135-145) mmol/L Potassium (3.3-5.1) mmol/L Chloride (96-108) mmol/L Carbon Dioxide (22-29) mmol/L Anion Gap (12-20) BUN (9-16) mg/dL Creatinine (0.5-1.4) mg/dL Estim Creat Clear Calc Estimated GFR Random Glucose (60-115) mg/dL Calcium (8.4-10.2) mg/dL Total Bilirubin (0.0-1.0) mg/dL Direct Bilirubin (0.0-0.5) mg/dL AST (5-31) U/L ALT (0-31) U/L Alkaline Phosphatase (39-117) U/L Total Protein (6.5-8.0) g/dL Albumin (3.5-5.0) g/dL Lipase (8-78) U/L Urine Color Yellow Urine Appearance Turbid Urine pH 5.5 (5.0-9.0) Ur Specific [place] 1.015 (1.005-1.025) Urine Protein 100 (2+) H (Neg-Trace) mg/dL Urine Glucose (UA) Negative (Negative) mg/dL Urine Ketones Negative (Negative) mg/dL Urine Blood Large (3+) H (Negative) Urine Nitrite Positive H (Negative) Ur Leukocyte Esterase Large (3+) H (Negative) Urine RBC 6-10 H (0-2) /HPF Urine WBC >50 H (0-5) /HPF Ur Squamous Epith Cells 3-5 (0-2) /HPF Urine Bacteria 3+ (None Seen) Hyaline Casts 0-2 (0-2) /LPF Urine Test NEGATIVE (NEGATIVE) External Record Review External record reviewed: Inpatient record, Office record and Outpatient record Prescription Management I considered prescription management with: Antibiotic (cefpodoxime) Chronic Conditions Patient?s care impacted by: Diabetes and Other (recurrent UTIs) Discharge Plan Discharge Clinical Impression: Urinary tract infection Patient Disposition: Home, Self-Care Instructions: Urinary Tract Infection in Women (DC) Additional Instructions: You have been evaluated in the emergency department today for your urinary symptoms. Your evaluation, including urinalysis, suggests that your symptoms are due to urinary tract infection. Please take your prescribed antibiotics for the full course of the medication as directed. Please follow-up with your primary care provider within 2 days. Return to the emergency department if you experience fevers 100.4? F or greater, worsening or uncontrolled pain, vomiting, flank pain, or for any other concerning symptoms. Prescriptions: New cefpodoxime 100 mg tablet 100 mg PO BID Qty: 14 0RF Rx Instructions: must administer with a meal/food No Action cetirizine 10 mg tablet 10 mg PO DAILY Qty: 30 8RF (DME) cane Device See Rx Instructions .ROUTE .MEDSUPPLY Qty: 1 0RF Rx Instructions: Daily As directed, 999days/Lifetime. (DME) blood pressure monitor Kit See Rx Instructions .ROUTE .MEDSUPPLY Qty: 1 0RF Rx Instructions: Automatic, Digital. Dx: I10. Daily As directed, 999 days/lifetime acetaminophen [Tylenol 8 Hour] 650 mg tablet extended release 650 mg PO Q8H PRN (Reason: pain) Qty: 90 2RF fluticasone propionate [Flovent HFA] 220 mcg/actuation HFA aerosol inhaler 2 puff inhalation BID 30 Days Qty: 12 8RF fluticasone propionate 50 mcg/actuation spray,suspension 1 spray intranasal DAILY Qty: 16 8RF sertraline 100 mg tablet 150 mg PO QAM Qty: 45 8RF pantoprazole 40 mg tablet,delayed release (DR/EC) 40 mg PO DAILY Qty: 90 1RF olopatadine [Pataday Twice Daily Relief] 0.1 % drops 1 drp ophthalmic (eye) BID 30 Days Qty: 5 6RF Rx Instructions: separate doses by at least 6-8 hours (DME) FreeStyle Lite Strips Strip See Rx Instructions .ROUTE .COMPLEX Dose Instruction: USE NEEDED TWICE A DAY Rx Instructions: USE NEEDED TWICE A DAY (DME) blood-glucose meter [FreeStyle Lite Meter] Kit See Rx Instructions .ROUTE .MEDSUPPLY Qty: 1 0RF Rx Instructions: for daily and prn blood sugars lancets [FreeStyle Lancets] 28 gauge misc 1 gauge topical BID PRN (Reason: hypoglycemia) losartan 25 mg tablet 25 mg PO BID Qty: 60 8RF zolpidem 10 mg tablet 10 mg PO BEDTIME PRN clonazepam 1 mg tablet 1 mg PO DAILY PRN ondansetron HCl 4 mg tablet PO
[2023-03-28 09:44] LABS: Alanine Aminotransferase 14 U/L (0-31); Albumin Level 4.3 g/dL (3.5-5.0); Alkaline Phosphatase 80 U/L (39-117); Anion Gap 13 (12-20); Aspartate Amino Transferase 16 U/L (5-31); Bilirubin Total 0.5 mg/dL (0.0-1.0); Blood Urea Nitrogen 16 mg/dL (9-16); Calcium 9.6 mg/dL (8.4-10.2); Carbon Dioxide 26 mmol/L (22-29); Chloride 107 mmol/L (96-108); Creatinine Clr Calc Pharmacy 49.4; Estimated Glomerular Filt Rate 51; Glucose Random 139 mg/dL (60-115); Potassium 3.8 mmol/L (3.3-5.1); Sodium 142 mmol/L (135-145); Total Protein 7.8 g/dL (6.5-8.0)
--- NOTE | 2023-03-28 09:55 | PC.NURSE ---
AOx3, reporting burning and pain with urination. per pt small amount of blood on toilet paper when wiping.
[2023-03-28 10:25] LABS: Alanine Aminotransferase 13 U/L (0-31); Alkaline Phosphatase 76 U/L (39-117); Anion Gap 12 (12-20); Aspartate Amino Transferase 15 U/L (5-31); Bilirubin Direct 0.1 mg/dL (0.0-0.5); Bilirubin Total 0.4 mg/dL (0.0-1.0); Blood Urea Nitrogen 17 mg/dL (9-16); Calcium 9.3 mg/dL (8.4-10.2); Carbon Dioxide 26 mmol/L (22-29); Chloride 106 mmol/L (96-108); Creatinine Clr Calc Pharmacy 52.2; Estimated Glomerular Filt Rate 54; Glucose Random 147 mg/dL (60-115); Lipase 33 U/L (8-78); Sodium 140 mmol/L (135-145); Total Protein 7.3 g/dL (6.5-8.0)
[2023-03-28 11:00] LABS: UPreg QC Valid YES; Urine Pregnancy NEGATIVE (NEGATIVE)
[2023-03-28 12:00] VITALS: BP 135/87; PULSE 74; RESP 18; TEMP 36.7; O2SAT 98
[2023-03-28 12:19] LABS: Appearance Urine Turbid; Color Urine Yellow; Glucose Urine UA Negative (Negative); Leukocyte Esterase Urine Large (3+) (Negative); Nitrite Urine Positive (Negative); PH 5.5 (5.0-9.0); Specific Gravity - Urine 1.015 (1.005-1.025); UMIC TRIGGER UACC YES; Urine Blood Large (3+) (Negative); Urine Ketones Negative (Negative); Urine Protein 100 (2+) mg/dL (Neg-Trace)
[2023-03-28 12:28] LABS: Bacteria Urine 3+ (None Seen); Hyaline Casts Urine 0-2 /LPF (0-2); UACC Culture Trigger YES; WBC Urine >50 /HPF (0-5)
== END 2023-03-28 13:10 | disposition home or self-care (01) ==
PROVIDERS: Registered Nurse Emergency; Emergency Provider Student in an Organized Health Care Education/Training Program; PCP Hospitalist
DX: N39.0 Urinary tract infection, site not specified (principal); Z79.899 Other long term (current) drug therapy
CPT/HCPCS: 36415; 80048; 80053; 80076; 81001; 81025; 83690; 85025; 87086; 87088; 87186; 99283; 99284

== ENCOUNTER → 2023-04-24 09:06 | Outpatient (BNVA) | payer OTHER, SELFPAY | PROVIDERS: PCP Hospitalist; Visit Provider Advanced Practice Midwife ==

== ENCOUNTER 2023-06-08 10:30 | Outpatient (AMB) | payer OTHER, SELFPAY ==
--- NOTE | 2023-06-08 10:38 | MHC.OFFVIS ---
Intake Vital Signs 06/08/23 10:39 Height 4 ft 11 in Weight 154 lb BMI 31.1 BP 126/76 Intake Visit Reasons: VALVER annual exam/30 MINS/DO NOT RS Intake Note: c/o of rt ovarian pain x 6 months ,comes and goes The patient agreed to use of a medical insurance coding specialist during this encounter. Scribed for MONICA Maguire by Eun Aguilar medical insurance coding specialist, on 06/08/2023 at 11:00 am EST Digital Account Coordinator Required: Yes Digital Account Coordinator Language: Associate Faculty Name: Rosario PEREZ Information Interpreted: non-clinical & clinical Material Scheduler: Material Scheduler Present (Rosario Ap PEREZ) Accompanied by: Self / Same As Patient Allergies codeine [CODEINE] Allergy (Severe, Verified 06/08/23 10:44) VOMITING buprenorphine Allergy (Intermediate, Verified 06/08/23 10:44) dizziness,nausea, vomiting lisinopril Allergy (Intermediate, Verified 06/08/23 10:44) cough naproxen [Naprosyn] Allergy (Intermediate, Verified 06/08/23 10:44) vomitting Penicillins [PENICILLINS] Allergy (Intermediate, Verified 06/08/23 10:44) RASH Post menopausal: Yes HPI HPI Comments History of Present Illness Details She is a postmenopausal woman presenting for annual exam. Hx of gastric sleeve surgery in 2019. She attempts to eat a healthy diet, does not take Calcium and Vitamin D. She stays active with walking. 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 Denies painful intercourse. Has complaints of right pelvic pain for approximately 6 months. Denies UIT sx or bowel changes. Denies vaginal itching and irritation. STD screening offered; she accepts. Denies family hx of breast, colon and ovarian cancer. Last pap smear 2021. Last mammogram 06/26/22. [facility] Medical History Abnormal Pap smear of cervix Asthma History of depression HTN, goal below 130/80 Surgical History History of bilateral carpal tunnel release History of cholecystectomy History of sleeve gastrectomy History of trigger finger Family History Father No problems noted. Mother Stroke Heart attack Uterine cancer Smoker Lung cancer Sister S/P KIERAN-BSO (total abdominal hysterectomy and bilateral salpingo-oophorectomy) Other Mental health disorder Substance use disorder Social History Household Members Other:: daughter Housing: Apartment Alcohol intake: never Patient Tobacco Use Status: Former Tobacco user Tobacco use type: Cigarette e-Cigarette/Vaping Use: Never Used service: No Current occupational status: disabled Sexual orientation: Straight/Heterosexual Gender identity: Female Cognitive needs: No Hearing needs: No Vision needs: Yes Female Reproductive History Menstrual Menopause type: natural Age of menopause: 53 Total pregnancies: 3 Full term: 3 Number of Living Children: 3 Date of last pap smear: 04/21/22 Date of Mammogram: 06/26/22 Review of Systems Const All systems reviewed & are unremarkable except as noted in HPI and below Reports pelvic pain Physical Exam Vital Signs: Last Vital Signs BP 126/76 06/08/23 10:39 BMI result Body Mass Index 31.1 Const General: cooperative, healthy appearing, no acute distress, well developed and alert Orientation/consciousness: patient oriented x3 HEENT Head: Yes normal to inspection Eyes General: appearance normal, both eyes and all related structures Neck Neck: Yes normal visual inspection Thyroid: Thyroid normal Chest Chest palpation & inspection: normal inspection of the chest Breast/axilla inspection: normal inspection of the breasts (no puckering, dimpling, peau de orange, retraction, discharge, masses) Breast/axilla palpation: normal palpation of the breasts Resp Effort & Inspection: normal respiratory effort GI Inspection: Yes normal to inspection Palpation (GI): Soft to palpation Rectal Exam - Female: deferred General: Yes bladder normal to palpation External Female Exam: normal external appearance and normal appearance of the urethra Speculum Exam - Vagina: normal appearance of the vagina, normal palpation and normal vaginal discharge Speculum Exam - Cervix: normal appearance of the cervix and normal palpation Bimanual exam- vagina & uterus: normal bimanual exam, normal palpation, uterine size normal, bladder normal to palpation, normal palpation and other (slightly tender on right side, no guarding) Bimanual Exam- Adnexa, other: normal adnexae and no masses Skin General skin exam: no rashes or lesions noted Neuro General: patient oriented x3 Cognition (Neuro): normal cognition Extrem General: Yes normal to inspection Psych Attitude: cooperative Thought process: Normal thought process present Assessment & Plan Assessment & Plan (1) Encounter for well woman exam: Code(s): Z01.419 - Encounter for gynecological examination (general) (routine) without abnormal findings Plan: Discussed: Current recommendations for pap smears per ASCCP guidelines. Breast awareness and periodic self breast exams. Encouraged yearly mammograms. Maintaining a healthy lifestyle including a well balanced diet including Calcium and Vitamin D and routine exercise. Contact office with any PMB. All of her questions and concerns were addressed to the best of my ability. RTO in one year for AG. (2) Pelvic pain in female: Code(s): R10.2 - Pelvic and perineal pain Plan: Discussed work up including pelvic US. She agrees to have work up done. Pelvic US ordered. Will await results and treat accordingly. Can take Tylenol and use heating pad prn for pain. Return in 2 weeks for test results. Orders: Orders Bacterial Vaginosis Panel Today R10.2 - Pelvic and perineal pain CT NG by PCR Today R10.2 - Pelvic and perineal pain US pelvic and transvaginal Today R10.2 - Pelvic and perineal pain Coding Level of Care Code Est Pt Prev Care 40-64y(47322) Diagnoses Encounter for well woman exam Z01.419 Pelvic pain in female R10.2
[2023-06-08 10:39] VITALS: BP 126/76; BMI 31.1
== END 2023-06-08 11:16 | disposition home or self-care (01) ==
LOC: HO.HWS 10:30
PROVIDERS: PCP Hospitalist; Visit Provider Advanced Practice Midwife
DX: Z01.419 Encounter for gynecological examination (general) (routine) without abnormal findings (principal); R10.2 Pelvic and perineal pain
CPT/HCPCS: 99396

== ENCOUNTER 2023-06-08 10:30 | Outpatient (REF) | payer OTHER, SELFPAY ==
[2023-06-08 18:34] LABS: CT PCR NOT DETECTED (Not Detect.); NG PCR NOT DETECTED (Not Detect.)
[2023-06-09 14:34] LABS: BV Int Neg Control Negative (Negative); BV Int Pos Control Positive (Positive)
== END 2023-06-08 10:31 | disposition home or self-care (01) ==
LOC: HO.LNP 10:30
PROVIDERS: PCP Hospitalist; Visit Provider Advanced Practice Midwife
DX: Z01.419 Encounter for gynecological examination (general) (routine) without abnormal findings (principal); R10.2 Pelvic and perineal pain; Z20.2 Contact with and (suspected) exposure to infections with a predominantly sexual mode of transmission
CPT/HCPCS: 0353U; 87480; 87510; 87660

== ENCOUNTER 2023-06-26 11:18 | Outpatient (REF) | payer OTHER, SELFPAY ==
--- NOTE | ~2023-06-26 | US_ITS ---
EXAMINATION: US PELVIS, COMPLETE CLINICAL INFORMATION: Pelvic pain; postmenopausal patient. COMPARISON: CT abdomen and pelvis dated 07/01/2017. TECHNIQUE: Transabdominal and transvaginal imaging was performed. FINDINGS: The uterus is of normal size and echogenicity, measuring 5.9 x 3.6 x 4.5 cm. The uterus is anteverted. A regular homogeneous endometrium is identified measuring 0.2 cm. FIBROIDS: There are 4 fibroids seen. 1. Location: Anterior fundus, myometrial. Size: 0.9 x 0.9 x 0.9 cm. Fibroid characteristics: Heterogeneous echotexture. 2. Location: Upper posterior body, myometrial. Size: 0.8 x 0.8 x 0.9 cm. Fibroid characteristics: Heterogeneous echotexture. 3. Location: Lower leftward body, myometrial. Size: 1.1 x 0.9 x 0.9 cm. Fibroid characteristics: Hypoechoic. 4. Location: Leftward fundus, myometrial. Size: 1.6 x 1 0.5, 1.9 cm. Fibroid characteristics: Heterogeneous echotexture. Both ovaries are of normal echogenicity. The right ovary measures 2.6 x 1.7 x 1.7 cm for a volume of 3.9 mL. The left ovary measures 6.6 x 4.4 x 3.8 cm for a volume of 57.8 mL. The left ovary contains a 5.0 x 3.5 x 4.3 cm simple appearing cyst. A smaller simple appearing ovarian cyst is seen on the CT examination dated 07/01/2017 (2:74). There is no pelvic free fluid. No adnexal mass is seen. US/US pelvic and transvaginal IMPRESSION: 1. Uterine fibroids are seen, as detailed. 2. A 5.0 cm in maximal diameter simple left ovarian cyst is seen in this postmenopausal patient. Recommend repeat ultrasound examination in 6-12 months for growth rate assessment.
== END 2023-06-26 11:19 | disposition home or self-care (01) ==
LOC: HO.US 11:18
PROVIDERS: PCP Hospitalist; Visit Provider Advanced Practice Midwife
DX: R10.2 Pelvic and perineal pain (principal)
CPT/HCPCS: 76830; 76856

== ENCOUNTER 2023-07-10 09:25 | Outpatient (AMB) | payer OTHER, SELFPAY ==
[2023-07-10 09:29] VITALS: BP 136/80; BMI 31.1
--- NOTE | 2023-07-10 09:29 | A.OFFVIS_ITS ---
Intake Vital Signs 07/10/23 09:29 Height 4 ft 11 in Weight 154 lb BMI 31.1 BP 136/80 Intake Visit Reasons: US Follow up/45 mins Intake Note: The patient agreed to use of a medical technologist chief during this encounter. Scribed for MONICA Maguire by Tracey Montgomery medical technologist chief, on 07/10/2023. Lotus Notes Developer Required: Yes Lotus Notes Developer Language: Show Design Supervisor Name: Rosario Information Interpreted: non-clinical & clinical Allergies codeine [CODEINE] Allergy (Severe, Verified 07/10/23 09:29) VOMITING buprenorphine Allergy (Intermediate, Verified 07/10/23 09:29) dizziness,nausea, vomiting lisinopril Allergy (Intermediate, Verified 07/10/23 09:29) cough naproxen [Naprosyn] Allergy (Intermediate, Verified 07/10/23 09:29) vomitting Penicillins [PENICILLINS] Allergy (Intermediate, Verified 07/10/23 09:29) RASH HPI HPI Comments History of Present Illness Details Patient is here today for US results due to lower pelvic pain for the last 6 months. She reports feeling well today. Recently treated for BV and feels better. History of prior US and biopsy done at another [facility], offhand she does not remember where, but plans to check with her sister on the location. [facility] Medical History Abnormal Pap smear of cervix Asthma History of depression HTN, goal below 130/80 Surgical History History of bilateral carpal tunnel release History of cholecystectomy History of sleeve gastrectomy History of trigger finger Family History Father No problems noted. Mother Stroke Heart attack Uterine cancer Smoker Lung cancer Sister S/P KIERAN-BSO (total abdominal hysterectomy and bilateral salpingo- oophorectomy) Other Mental health disorder Substance use disorder Social History Household Members Other:: daughter Housing: Apartment Alcohol intake: never Patient Tobacco Use Status: Former Tobacco user Tobacco use type: Cigarette e-Cigarette/Vaping Use: Never Used service: No Current occupational status: disabled Sexual orientation: Straight/Heterosexual Gender identity: Female Cognitive needs: No Hearing needs: No Vision needs: Yes Physical Exam Vital Signs: Last Vital Signs BP 136/80 07/10/23 09:29 BMI result Body Mass Index 31.1 Const General: cooperative, healthy appearing, comfortable, no acute distress, well developed, alert and awake Results Reviewed Results Reviewed: CLINICAL INFORMATION: Pelvic pain; postmenopausal patient. COMPARISON: CT abdomen and pelvis dated 07/01/2017. TECHNIQUE: Transabdominal and transvaginal imaging was performed. FINDINGS: The uterus is of normal size and echogenicity, measuring 5.9 x 3.6 x 4.5 cm. The uterus is anteverted. A regular homogeneous endometrium is identified measuring 0.2 cm. FIBROIDS: There are 4 fibroids seen. ?1. Location: Anterior fundus, myometrial. ?? ? Size: 0.9 x 0.9 x 0.9 cm. ?? ? Fibroid characteristics: Heterogeneous echotexture. ?2. Location: Upper posterior body, myometrial.? Size: 0.8 x 0.8 x 0.9 cm. ?? ? Fibroid characteristics: Heterogeneous echotexture. ?3. Location: Lower leftward body, myometrial. ?? ? Size: 1.1 x 0.9 x 0.9 cm. ?? ? Fibroid characteristics: Hypoechoic. ?4. Location: Leftward fundus, myometrial. ?? ? Size: 1.6 x 1 0.5, 1.9 cm. ?? ? Fibroid characteristics: Heterogeneous echotexture. Both ovaries are of normal echogenicity. The right ovary measures 2.6 x 1.7 x 1.7 cm for a volume of 3.9 mL. The left ovary measures 6.6 x 4.4 x 3.8 cm for a volume of 57.8 mL. The left ovary contains a 5.0 x 3.5 x 4.3 cm simple appearing cyst. A smaller simple appearing ovarian cyst is seen on the CT examination dated 07/01/2017 (2:74). There is no pelvic free fluid. No adnexal mass is seen. US/US pelvic and transvaginal IMPRESSION: ? 1. Uterine fibroids are seen, as detailed. ? 2. A 5.0 cm in maximal diameter simple left ovarian cyst is seen in this postmenopausal patient. Recommend repeat ultrasound examination in 6-12 months for growth rate assessment. Assessment & Plan Assessment & Plan (1) Encounter to discuss test results: Code(s): Z71.2 - Person consulting for explanation of examination or test findings Plan: Discussed: US findings: ?1. Uterine fibroids are seen, as detailed. ?2. A 5.0 cm in maximal diameter simple left ovarian cyst is seen in this postmenopausal patient. Recommend repeat ultrasound examination in 6-12 months for growth rate assessment. All of her questions and concerns were addressed to the best of my ability and shared decision making. She is agreeable to plan of care. (2) Fibroid, uterine: Code(s): D25.9 - Leiomyoma of uterus, unspecified Plan: Leiomyoma: common pelvic neoplasm. Differential diagnosis-may include leiomyosarcoma which is a rare uterine sarcoma 3-7/100,000, difficult to distinguish from fibroids on ultrasound from uterine sarcoma's. Unlikely any single test will have a highly positive predictive value. Hysterectomy is not recommended for sole purpose of excluding malignant neoplasm. Report any PMB/AUB, pelvic pressure, bloating, or pain. Consult for surgical exploration verses expectant management offered. Patient prefers expectant management. Expectant management follow up in 6 months, then yearly for stability. Orders: Orders US pelvic and transvaginal 6 Months D21.9 - Benign neoplasm of connective and other soft tissue, unspecified, R10.2 - Pelvic and perineal pain Coding Level of Care Code Est Pt Level 3 (42429) Diagnoses Encounter to discuss test results Z71.2 Fibroid, uterine D25.9
== END 2023-07-10 10:08 | disposition home or self-care (01) ==
LOC: HO.HWS 09:25
PROVIDERS: PCP Hospitalist; Visit Provider Advanced Practice Midwife
DX: Z71.2 Person consulting for explanation of examination or test findings (principal); D25.9 Leiomyoma of uterus, unspecified
CPT/HCPCS: 99213

== ENCOUNTER → 2023-07-10 09:25 | Outpatient (BNVA) | payer OTHER, SELFPAY | PROVIDERS: PCP Hospitalist; Visit Provider Advanced Practice Midwife | DX: Z71.2 Person consulting for explanation of examination or test findings (principal); D25.9 Leiomyoma of uterus, unspecified | CPT/HCPCS: 99212 ==

== ENCOUNTER 2023-07-12 10:55 | Outpatient (REF) | payer OTHER, SELFPAY | END 2023-07-12 10:56 | disposition home or self-care (01) | LOC: HO.MAMMO 10:55 | PROVIDERS: PCP Hospitalist; Visit Provider Family Medicine | DX: Z12.31 Encounter for screening mammogram for malignant neoplasm of breast (principal) | CPT/HCPCS: 77063; 77067 ==

== ENCOUNTER → 2023-07-12 11:15 | Outpatient (BNV) | payer OTHER, SELFPAY | PROVIDERS: PCP Hospitalist; Visit Provider Radiology Diagnostic Radiology | DX: Z12.31 Encounter for screening mammogram for malignant neoplasm of breast (principal) | CPT/HCPCS: 77063; 77067 ==

== ENCOUNTER 2023-08-10 11:31 | Outpatient (AMB) | payer OTHER, SELFPAY ==
--- NOTE | 2023-08-10 11:36 | A.OFFPC_ITS ---
Vital Signs 08/10/23 11:37 Height 4 ft 11 in Weight 151 lb 2 oz BMI 30.5 BP 136/82 Blood Pressure Location Rt brachial Position Sitting Pulse 80 Pulse Source Pulse Oximeter Pulse Oximetry (%) 99 Oxygen Delivery Method Room Air Intake Visit Reasons: Discuss Neurology referral- NEEDS PHQ9 +THRIVE Intake Note: Patient is here to discuss Neurology referral for pain in her head for 3 months. She feels her balance is off, too. She would like a refill on a new blood sugar testing machine. Allergies codeine [CODEINE] Allergy (Severe, Verified 08/10/23 11:41) VOMITING buprenorphine Allergy (Intermediate, Verified 08/10/23 11:41) dizziness,nausea, vomiting lisinopril Allergy (Intermediate, Verified 08/10/23 11:41) cough naproxen [Naprosyn] Allergy (Intermediate, Verified 08/10/23 11:41) vomitting Penicillins [PENICILLINS] Allergy (Intermediate, Verified 08/10/23 11:41) RASH Tobacco use date assessed: 03/05/23 HPI Discuss Neurology referral- NEEDS PHQ9 +THRIVE HPI Details 58 y/o female presents to discuss Neurol ogy referral. Had recently went to the ED 07/09/23 for L posterior headache. Work-up was negative. Pt also reports some imbalance. Pt reports anxiety/depression. She is on sertraline 150mg and clonazepam. She reports she has an appt. with psychiatry scheduled. [facility], [facility] Medical History Abnormal Pap smear of cervix Asthma History of depression HTN, goal below 130/80 Surgical History History of bilateral carpal tunnel release History of cholecystectomy History of sleeve gastrectomy History of trigger finger Family History Father No problems noted. Mother Stroke Heart attack Uterine cancer Smoker Lung cancer Sister S/P KIERAN-BSO (total abdominal hysterectomy and bilateral salpingo- oophorectomy) Other Mental health disorder Substance use disorder Social History Household Members Other:: daughter Housing: Apartment Alcohol intake: never Patient Tobacco Use Status: Former Tobacco user Tobacco use type: Cigarette e-Cigarette/Vaping Use: Never Used service: No Current occupational status: disabled Sexual orientation: Straight/Heterosexual Gender identity: Female Cognitive needs: No Hearing needs: No Vision needs: Yes Questionnaire PHQ-9 Over the last 2 weeks, how often have you been bothered by any of the following problems? 1. Little interest or pleasure in doing things: more than half the days 2. Feeling down, depressed, or hopeless: several days 3. Trouble falling or staying asleep, or sleeping too much: more than half the days 4. Feeling tired or having little energy: more than half the days 5. Poor appetite or overeating: several days 6. Feeling bad about yourself - or that you are a failure or have let yourself or your family down: several days 7. Trouble concentrating on things, such as reading the newspaper or watching television: more than half the days 8. Moving or speaking so slowly that other people could have noticed. Or the opposite - being so fidgety or restless that you have been moving around a lot more than usual: several days 9. Thoughts that you would be better off or of hurting yourself in some way: not at all Total score: 12 Depression Screening Interpretation: Positive 07562 - PHQ-9 Billing: Yes Source: Developed by Drs. Raheel Calix, Yani Vargas, Willie Osorio and colleagues, with an educational janine from [employer]. Thrive Questionnaire Date Thrive assessed: 05/08/22 DICKSON-7 AMB Questionnaire DICKSON-7 Date DICKSON - 7 assessed: 05/08/22 Feeling nervous, anxious, or on edge: 2 = More than half the days Not being able to stop or control worryin = Several days Worrying too much about different things: 1 = Several days Trouble relaxin = Several days Being so restless that it is hard to sit still: 1 = Several days Becoming easily annoyed or irritable: 2 = More than half the days Feeling afraid as if something awful might happen: 1 = Several days Total DICKSON-7 score (0-4 normal; 5-9 mild; 10-14 moderate; 15-21 severe): 9 Source: Developed by Drs. Raheel Calix, YaniWillie Daniel and colleagues, with an educational janine from [employer]. DICKSON-7 Assessment Billing DICKSON-7 Assessment Tool: DICKSON-7 Assessment 31841 Review of Systems Const Reports headache(s) ENT Reports headache(s) Neuro Reports headache(s) Psych Reports anxiety and Reports depression Physical exam (Primary Care) Vital Signs: Last Vital Signs Pulse 80 08/10/23 11:37 BP 136/82 08/10/23 11:37 Pulse Ox 99 08/10/23 11:37 Oxygen Delivery Method Room Air 08/10/23 11:37 BMI result Body Mass Index 30.5 Tobacco/Smoking Status: Tobacco use Status Tobacco use date assessed 03/05/23 08/10/23 11:49 Patient Tobacco Use Status Former Tobacco user 08/10/23 11:49 Tobacco use type Cigarette 08/10/23 11:49 e-Cigarette/Vaping Use Never Used 08/10/23 11:49 PHQ-9: PHQ-9 Score PHQ-9: Total score 12 08/10/23 11:56 Depression Screening Interpretation: Positive Thrive Assessment: Date of Thrive Assessment Date Thrive assessed 05/08/22 08/10/23 11:49 Assessment and Plan Assessment & Plan (1) Headache: Code(s): R51.9 - Headache, unspecified Plan: Left?posterior?head?and?scalp?pain?which?seems?to?be?originating?from ?the?insertion?points?of?cervical?and?trapezius?muscles. Will?give?her?a?short?course?of?muscle?relaxant?and?refer?her?for?physical?thera py. Patient?has?requested?a?referral?to?neurology?which?may?be? helpful?as?they?may?be?able?to?consider?trigger?point?injections?or?other?treatm ents.??She?also?notes?some?imbalance. Referred?to?neurology?as?per?patient?request (2) Cervicalgia: Code(s): M54.2 - Cervicalgia Plan: As?above,?she?would?benefit?from?physical?therapy.??Will?also?give?her?a?sh ort?course?of?muscle?relaxant Can?use?ice?and?heat (3) Depression with anxiety: Code(s): F41.8 - Other specified anxiety disorders Plan: This?is?likely?impacting?her?perception?of?pain She?is?been?out?of?her?medication?for?anxiety?and?depression. Will?refill?these (4) Imbalance: Code(s): R26.89 - Other abnormalities of gait and mobility Plan: Patient?notes?some?imbalance?and?I?have?referred?her?to?Neurology Orders: Orders PT Evaluation and Treatment Today M54.2 - Cervicalgia, R26.89 - Other abnormalities of gait and mobility, R51.9 - Headache, unspecified Referrals Neurology Referral R51.9 - Headache, unspecified Medications: New cyclobenzaprine 10 mg PO BID 10 days PRN 20 tabs 0RF muscle spasm R51.9 - Head ache, unspecified Changed From clonazepam 1 mg PO DAILY PRN To clonazepam 1 mg PO DAILY PRN 30 tabs 0RF anxiety 30 days Refilled sertraline 150 mg (1.5 x 100 mg) PO QAM 45 tabs 8RF Coding Level of Care Code Est Pt Level 4 (94323) Diagnoses Headache R51.9 Cervicalgia M54.2 Depression with anxiety F41.8 Imbalance R26.89 Additional Codes DICKSON-7 Assessment Billing - DICKSON-7 Assessment Tool: DICKSON-7 Assessment 92225 ([id number])
[2023-08-10 11:37] VITALS: BP 136/82; PULSE 80; O2SAT 99; BMI 30.5
== END 2023-08-10 13:07 | disposition home or self-care (01) ==
PROVIDERS: PCP Hospitalist; Visit Provider Family Medicine
DX: R51.9 Headache, unspecified (principal); M54.2 Cervicalgia; F41.8 Other specified anxiety disorders; R26.89 Other abnormalities of gait and mobility
CPT/HCPCS: 99214

== ENCOUNTER 2023-08-15 09:26 | Outpatient (AMB) | payer OTHER, SELFPAY ==
[2023-08-15 09:36] VITALS: BP 116/68; PULSE 76; TEMP 36.7; BMI 30.3
--- NOTE | 2023-08-15 09:36 | A.OFFVIS_ITS ---
Intake Vital Signs 08/15/23 09:36 Height 4 ft 11 in Weight 149 lb 14.629 oz BMI 30.3 BP 116/68 Blood Pressure Location Rt brachial Position Sitting Pulse 76 Pulse Source Palpation Temp 98.0 F Temp Source Skin Intake Visit Reasons: Tendinitis/Increased pain Intake Note: Pt seen today for follow up. C/o pain everywhere. Most bothersome is her shoulde rs. Describes shoulder pain as burning and feels as if skin is being stretched out Director Of Teacher Education Required: Yes Director Of Teacher Education Name: Emani [id number] Information Interpreted: clinical only Accompanied by: Self / Same As Patient Allergies codeine [CODEINE] Allergy (Severe, Verified 08/15/23 09:38) VOMITING buprenorphine Allergy (Intermediate, Verified 08/15/23 09:38) dizziness,nausea, vomiting lisinopril Allergy (Intermediate, Verified 08/15/23 09:38) cough naproxen [Naprosyn] Allergy (Intermediate, Verified 08/15/23 09:38) vomitting Penicillins [PENICILLINS] Allergy (Intermediate, Verified 08/15/23 09:38) RASH Medication List - Last Reconciled 08/15/23 by Maria L Mckeon MD acetaminophen ER (Tylenol 8 Hour) 650 mg PO Q8H PRN blood pressure monitor Automatic, Digital. Dx: I10. Daily As directed, 999 days/lifetime blood sugar diagnostic (FreeStyle Lite Strips) USE NEEDED TWICE A DAY blood-glucose meter (FreeStyle Lite Meter kit) for daily and prn blood sugars cane Daily As directed, 999days/Lifetime. cetirizine 10 mg PO DAILY cholecalciferol (vitamin D3) 1,250 mcg PO QWEEK clonazepam 1 mg PO DAILY PRN 30 days cyclobenzaprine 10 mg PO BID PRN 10 days fluticasone propionate 220 mcg/actuation (Flovent HFA) 2 puffs inhalation BID 30 days fluticasone propionate 50 mcg/actuation 1 spray intranasal DAILY lancets (FreeStyle Lancets) 1 gauge topical BID PRN losartan 25 mg PO BID olopatadine 0.1% (Pataday Twice Daily Relief) 1 drp ophthalmic (eye) BID 1 month ondansetron HCl mg PO pantoprazole 40 mg PO DAILY phentermine 15 mg PO QAM sertraline 150 mg (1.5 x 100 mg) PO QAM zolpidem 10 mg PO BEDTIME PRN HPI HPI Comments History of Present Illness Details Patient presents for evaluation of bilateral shoulder pain, worse on the right. States that the shoulder pain is on the top of the shoulder and posterior. Worse with activity. She denies any specific trauma or injury to the shoulder. [facility] Medical History Abnormal Pap smear of cervix HTN, goal below 130/80 History of depression Asthma Surgical History History of trigger finger History of bilateral carpal tunnel release History of sleeve gastrectomy History of cholecystectomy Family History Father No problems noted. Mother Stroke Heart attack Uterine cancer Smoker Lung cancer Sister S/P KIERAN-BSO (total abdominal hysterectomy and bilateral salpingo- oophorectomy) Other Mental health disorder Substance use disorder Social History Household Members Other:: daughter Housing: Apartment Alcohol intake: never Patient Tobacco Use Status: Former Tobacco user Tobacco use type: Cigarette e-Cigarette/Vaping Use: Never Used service: No Current occupational status: disabled Sexual orientation: Straight/Heterosexual Gender identity: Female Cognitive needs: No Hearing needs: No Vision needs: Yes Review of Systems Musc Reports arthralgias, Reports limited range of motion and Reports stiffness Physical Exam Vital Signs: Last Vital Signs Temp 98.0 F 08/15/23 09:36 Pulse 76 08/15/23 09:36 BP 116/68 08/15/23 09:36 BMI result Body Mass Index 30.3 Const General: cooperative, healthy appearing and comfortable Nutritional Appearance: obese Limitations: no limitations HEENT Head: Yes normocephalic and Yes atraumatic Resp Effort & Inspection: normal respiratory effort and able to speak in complete sentences Extrem Other: Positive empty can test bilaterally Negative infraspinatus test bilaterally Positive lift-off test right shoulder, negative on the left Results Reviewed Results Reviewed: Right shoulder x-ray from 02/2023 XR/XR shoulder RT min 2V IMPRESSION: Right shoulder calcific tendinitis. Appearance is improved since study of 06/26/2017. Assessment & Plan Assessment & Plan (1) Tendinitis of both rotator cuffs: Code(s): M75.81 - Other shoulder lesions, right shoulder; M75.82 - Other shoulder lesions, left shoulder Plan: Bilateral rotator cuff tendinopathy, worse on the right. Start with physical therapy. If no improvement can consider steroid injection for subacromial bursitis Start a short course of meloxicam 15 mg daily Follow-up in 2 months Plan I spent 15 minutes reviewing patient's chart, evaluating patient, ordering diagnostic workup, counseling patient and documenting in the chart Orders: Orders PT Evaluation and Treatment Today M75.81 - Other shoulder lesions, right shoulder, M75.82 - Other shoulder lesions, left shoulder Medications: New meloxicam 15 mg PO DAILY 14 tabs 1RF Coding Level of Care Code Est Pt Level 3 (88780) Diagnoses Tendinitis of both rotator cuffs M75.81; M75.82
== END 2023-08-15 10:02 | disposition home or self-care (01) ==
PROVIDERS: PCP Hospitalist; Visit Provider Student in an Organized Health Care Education/Training Program
DX: M75.81 Other shoulder lesions, right shoulder (principal); M75.82 Other shoulder lesions, left shoulder
CPT/HCPCS: 99213

== ENCOUNTER → 2023-08-15 09:26 | Outpatient (BNVA) | payer OTHER, SELFPAY | PROVIDERS: PCP Hospitalist; Visit Provider Student in an Organized Health Care Education/Training Program | DX: M75.81 Other shoulder lesions, right shoulder (principal); M75.82 Other shoulder lesions, left shoulder | CPT/HCPCS: 99212 ==

== ENCOUNTER 2023-09-06 09:36 | Outpatient (AMB) | payer OTHER, SELFPAY ==
[2023-09-06 09:41] VITALS: BP 128/68; TEMP 36.7; BMI 30.1
--- NOTE | 2023-09-06 09:41 | MHC.OFFVIS ---
Intake Vital Signs 09/06/23 09:41 Height 4 ft 11 in Weight 149 lb 0.52 oz BMI 30.1 BP 128/68 Blood Pressure Location Rt brachial Position Sitting Temp 98.1 F Temp Source Skin Intake Visit Reasons: Pain/swelling Intake Note: Patient stating shes having pain and swelling in her right hand middle finger. Also c/o right knee pain and swelling. She loses her balance at times. Using heating pad on knee and ibuprofen 800mg that her sister gave to her. 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 Potato Chip Sacking Machine Operator Name: Eusebio Casiano [id number] Accompanied by: Self / Same As Patient Allergies codeine [CODEINE] Allergy (Severe, Verified 09/06/23 09:45) VOMITING buprenorphine Allergy (Intermediate, Verified 09/06/23 09:45) dizziness,nausea, vomiting lisinopril Allergy (Intermediate, Verified 09/06/23 09:45) cough naproxen [Naprosyn] Allergy (Intermediate, Verified 09/06/23 09:45) vomitting Penicillins [PENICILLINS] Allergy (Intermediate, Verified 09/06/23 09:45) RASH Medication List - Last Reconciled 09/06/23 by Maria L Mckeon MD acetaminophen ER (Tylenol 8 Hour) 650 mg PO Q8H PRN blood pressure monitor Automatic, Digital. Dx: I10. Daily As directed, 999 days/lifetime blood sugar diagnostic (FreeStyle Lite Strips) USE NEEDED TWICE A DAY blood-glucose meter (FreeStyle Lite Meter kit) for daily and prn blood sugars cane Daily As directed, 999days/Lifetime. cetirizine 10 mg PO DAILY cholecalciferol (vitamin D3) 1,250 mcg PO QWEEK clonazepam 1 mg PO DAILY PRN 30 days fluticasone propionate 220 mcg/actuation (Flovent HFA) 2 puffs inhalation BID 30 days fluticasone propionate 50 mcg/actuation 1 spray intranasal DAILY lancets (FreeStyle Lancets) 1 gauge topical BID PRN losartan 25 mg PO BID olopatadine 0.1% (Pataday Twice Daily Relief) 1 drp ophthalmic (eye) BID 1 month ondansetron HCl mg PO pantoprazole 40 mg PO DAILY phentermine 15 mg PO QAM sertraline 150 mg (1.5 x 100 mg) PO QAM zolpidem 10 mg PO BEDTIME PRN HPI HPI Comments History of Present Illness Details Patient presents urgently for right middle finger pain and swelling for 2 weeks. As well as right knee and right shoulder pain. She states that for years she would get intermittent joint pain and swelling. She has been taking ibuprofen 800 mg daily with some relief. She is unaware of any family history of an autoimmune rheumatic disease. Denies personal or family history of psoriasis. [facility] Medical History Abnormal Pap smear of cervix HTN, goal below 130/80 History of depression Asthma Surgical History History of trigger finger History of bilateral carpal tunnel release History of sleeve gastrectomy History of cholecystectomy Family History Father No problems noted. Mother Stroke Heart attack Uterine cancer Smoker Lung cancer Sister S/P KIERAN-BSO (total abdominal hysterectomy and bilateral salpingo-oophorectomy) Other Mental health disorder Substance use disorder Social History Household Members Other:: daughter Housing: Apartment Alcohol intake: never Patient Tobacco Use Status: Former Tobacco user Tobacco use type: Cigarette e-Cigarette/Vaping Use: Never Used service: No Current occupational status: disabled Sexual orientation: Straight/Heterosexual Gender identity: Female Cognitive needs: No Hearing needs: No Vision needs: Yes Review of Systems Musc Reports arthralgias, Reports joint swelling, Reports limited range of motion and Reports stiffness Physical Exam Vital Signs: Last Vital Signs Temp 98.1 F 09/06/23 09:41 BP 128/68 09/06/23 09:41 BMI result Body Mass Index 30.1 Const General: cooperative, healthy appearing and comfortable Nutritional Appearance: overweight Orientation/consciousness: patient oriented x3 Limitations: no limitations HEENT Head: Yes normocephalic and Yes atraumatic Mouth: moist mucous membranes Resp Effort & Inspection: normal respiratory effort and able to speak in complete sentences Skin General skin exam: no rashes or lesions noted Neuro General: patient oriented x3 Extrem Other: Swelling and tenderness of right middle finger and tenderness along the right 3rd flexor tendon Right knee pain with full flexion and full extension Office Procedures Tendon Injection Tendon Injection Details: The right palm was prepped with ChloraPrep and alcohol. Under a topical ethyl chloride spray the [3rd] flexor tendon sheath was injected with 20 mg of triamcinolone and 0.1 cc of 1% lidocaine. The patient tolerated the procedure without any acute adverse effects. [id number] Tendon Sheath Injection All charges added?: Procedure code (CPT) selection complete Results Reviewed Results Reviewed: Right shoulder x-ray from 02/2023 XR/XR shoulder RT min 2V IMPRESSION: Right shoulder calcific tendinitis. Appearance is improved since study of 06/26/2017. Assessment & Plan Assessment & Plan (1) Tendinitis of right hand: Code(s): M77.8 - Other enthesopathies, not elsewhere classified Plan: 58-year-old female presents for evaluation of right middle finger pain and swelling as well as right shoulder and right knee pain. States that for years she would have episodic pain and swelling of multiple fingers. She had To trigger finger release procedures for left hand as well as carpal tunnel release surgery in the past. On evaluation today her right middle finger is swollen. I wonder whether patient has an inflammatory arthritis such as psoriatic arthritis. Previously she stated that prednisone courses did not help her symptoms. With patient's consent the right middle finger flexor tendon was injected with Kenalog today. Check labs Follow-up in 1 month Plan I spent 26 minutes reviewing patient's chart, evaluating patient, ordering diagnostic workup, counseling patient and documenting in the chart Orders: Orders Comprehensive Met. Panel Today M77.8 - Other enthesopathies, not elsewhere classified Erythrocyte Sedimentation Rate Today M77.8 - Other enthesopathies, not elsewhere classified Complete Blood Count Auto Diff Today M77.8 - Other enthesopathies, not elsewhere classified C Reactive Protein Today M77.8 - Other enthesopathies, not elsewhere classified Hepatitis A,B,C Profile Today Z11.59 - Encounter for screening for other viral diseases T Spot TB Today Z11.7 - Encounter for testing for latent tuberculosis infection AMB Injection-Tendon Today M77.8 - Other enthesopathies, not elsewhere classified Coding Level of Care Code Est Pt Level 4 (02627) Diagnoses Tendinitis of right hand M77.8 CPT Codes Tendon Injection - Tendon Injection 1: [id number]-[place] Tendon Sheath Injection ([id number])
== END 2023-09-06 10:17 | disposition home or self-care (01) ==
PROVIDERS: PCP Family Medicine; Visit Provider Student in an Organized Health Care Education/Training Program
DX: M77.8 Other enthesopathies, not elsewhere classified (principal)
CPT/HCPCS: 20550; 99214

== ENCOUNTER → 2023-09-06 09:36 | Outpatient (BNVA) | payer OTHER, SELFPAY | PROVIDERS: PCP Family Medicine; Visit Provider Student in an Organized Health Care Education/Training Program | DX: M77.8 Other enthesopathies, not elsewhere classified (principal) | CPT/HCPCS: 20550; 99212 ==

== ENCOUNTER 2023-09-06 10:32 | Outpatient (REF) | payer OTHER, SELFPAY ==
[2023-09-06 10:59] LABS: MANUAL DIFF FLAG NO
[2023-09-06 11:04] LABS: Basophils Absolute Auto 0.1 X10*3/uL (0.0-0.2); Basophils Percent Auto 0.6 % (0-2); Eosinophils Absolute Auto 0.1 X10*3/uL (0.0-0.4); Eosinophils Percent Auto 1.5 % (0-4); Hematocrit 38.8 % (37.0-47.0); Hemoglobin 12.9 g/dl (12.0-16.0); Imm Gran Abs Auto 0.02 X10*3/uL (0.00-0.03); Imm Gran Pct Auto 0.2 % (0.0-0.4); Lymphocytes Absolute Auto 1.8 X10*3/uL (1.2-4.9); Lymphocytes Percent Auto 22.2 % (20-40); Mean Corpuscular HGB Conc 33.2 g/dl (31.0-35.0); Mean Corpuscular Hemoglobin 28.9 pg (27.0-33.0); Mean Platelet Volume 9.7 fL (9.4-12.3); Monocytes Absolute Auto 0.7 X10*3/uL (0.1-1.2); Monocytes Percent Auto 8.2 % (2-11); Neutrophils Absolute Auto 5.4 x10*3/uL (2.0-8.3); Neutrophils Percent Auto 67.3 % (45-73); Platelet Count 310 X10*3/uL (160-400); Red Blood Count 4.46 X10*6/uL (4.20-5.50); Red Cell Distribution Width 13.3 % (11.0-16.0); White Blood Count 8.1 X10*3/uL (4.8-10.8)
[2023-09-06 11:17] LABS: Alanine Aminotransferase 15 U/L (0-31); Albumin Level 4.1 g/dL (3.5-5.0); Alkaline Phosphatase 70 U/L (39-117); Anion Gap 14 (12-20); Aspartate Amino Transferase 16 U/L (5-31); Bilirubin Total 0.3 mg/dL (0.0-1.0); Blood Urea Nitrogen 19 mg/dL (9-16); C Reactive Protein 0.39 mg/dL (< or = 0.50); Calcium 9.6 mg/dL (8.4-10.2); Carbon Dioxide 25 mmol/L (22-29); Chloride 105 mmol/L (96-108); Estimated Glomerular Filt Rate > 60; Glucose Random 100 mg/dL (60-115); Potassium 3.8 mmol/L (3.3-5.1); Sodium 140 mmol/L (135-145); Total Protein 7.9 g/dL (6.5-8.0)
[2023-09-06 11:41] LABS: HBS Num1 > 1000.00 mIU/mL (0-7.99); HBc Num1 6.89 S/CO (0.00-0.79); Hepatitis A Antibody IgM 0.24 Index (0-0.79); Hepatitis B Surface Antigen Negative (Negative); ~HepC Num1 0.18 S/CO (0.00-0.79); ~Hepatitis A Antibody IgM Nonreactive (Nonreactive); ~Hepatitis B Surface Antibody REACTIVE (Nonreactive); ~Hepatitis C Antibody Nonreactive (Nonreactive)
[2023-09-06 11:45] LABS: Erythrocyte Sedimentation Rate 23 MM/HR (0-20)
[2023-09-06 12:34] LABS: HBc Num2 6.95 S/CO; Hepatitis B Core Antibody Reactive (Nonreactive)
[2023-09-08 22:28] LABS: TS Negative Control Passed; TS Panel A 2; TS Panel B 2; TS Positive Control Passed; TSpotTB Negative (Negative)
== END 2023-09-06 10:33 | disposition home or self-care (01) ==
LOC: HO.10HDL 10:32
PROVIDERS: Visit Provider Student in an Organized Health Care Education/Training Program
DX: M77.8 Other enthesopathies, not elsewhere classified (principal); Z11.59 Encounter for screening for other viral diseases; Z11.7 Encounter for testing for latent tuberculosis infection
CPT/HCPCS: 36415; 80053; 85025; 85652; 86140; 86481; 86704; 86706; 86709; 86803; 87340

== ENCOUNTER 2023-10-03 09:00 | Outpatient (RCR) | payer OTHER, SELFPAY ==
--- NOTE | 2023-09-20 14:15 | MHC.PT.EP ---
[facility] [place] Office [place] Office [address] Paulina Echols [address] [phone] F: [phone] F: [phone] F: [phone] F: [phone] Physical Therapy Plan of Care Date of Evaluation: 09/20/23 Date of Surgery: Diagnosis: This is a 58 yo female presenting to skilled PT with a script for tendinitis of B rotator cuffs. Assessment: This is a 58 yo female presenting to skilled PT with a script for tendinitis of B rotator cuffs. Patient reporting pain that started insidiously over the last 1.5 years and has progressively gotten worse. B shoulders are painful but the R is worse than the L (LHD). Pain on the R side is described as tearing and hot, it is located at the UT and into the post aspect of the shoulder. This pain radiates down the upper arm and can be numb and tingling (does not go past the elbow). She also reports weakness in the RUE and decreased pneumatic tool repairer strength as well however no hand symptoms usually. Her LUE is the same however less in intensity. She has been to rheumatology however did not want injections due pain from a past injection in the hand. She has not seen any other health ostomy care nurse for her pain. Her pain increases with laying supine, writing, ADL's, and OH motions. She takes Tylenol for pain management. She also gets neck pain. Her pain ranges, it can be constant or can come and go depending on the day. Assessment reveals pain that ranges from up to a 7/10 at the worst. Patient demos decreased B shoulder and cervical ROM, strength of B shoulder's, TTP at B UT's, GHJ joint line superior and posteriorly and impaired posture with forward head and rounded shoulders. Based on functional limitations, impaired QOL and pain tolerance patient is a good candidate for skilled PT 2x/wk for 4wks. Frequency and Duration: The patient will be seen 2x/wk for 4wks Short Term Goals: Demo I with HEP Improve shoulder AROM by at least 10 degs Demo proper scapular recruitment with appropriate shoulder strengthening exercises Post Anesthesia Nurse Goals: Improve shoulder nonpainful AROM to almost near equal B Demo at least 1 grade improvement in MMT for shoulder Improve SPADI by at least 10 points Improve overall functional QOL by at least 50% Treatment Plan: Modalities to reduce pain, spasms and effusion. Manual therapy to restore motion and function. Therapeutic exercise to improve strength and flexibility. Neuromuscular re-education for posture and balance. Therapeutic activities to return to functional activities of daily living. Electronically signed by: Cristal Anderson PT Please sign and return to therapist. Thank you for your referral.
--- NOTE | 2023-10-17 09:41 | MHC.PT.DC ---
[facility] [place] Office [place] Office [place] Office [address] Paulina Echols [address] [phone] F: [phone] F: [phone] F: [phone] F: [phone] Physical Therapy Discharge Report Diagnosis: This is a 58 yo female presenting to skilled PT with a script for tendinitis of B rotator cuffs. Date of Surgery: Date of Evaluation: 09/20/23 Date of Discharge: 10/17/23 Treatments to Date: 4 Cancellations to Date: 0 No Shows to Date: 0 Discharge Status: Visit Non-compliance Discharge Summary: Patient came to eval and 3 follow ups. She proceeded to no show to multiple appointments following her last tx session. DC to HEP due to non compliance with appointments and facility policy. Electronically signed by: Cristal Anderson PT Please sign and return to therapist. Thank you for your referral.
== END 2023-10-17 09:41 | disposition home or self-care (01) ==
LOC: HO.PTCHIC 09:00
PROVIDERS: PCP Family Medicine; Visit Provider Student in an Organized Health Care Education/Training Program
DX: M54.2 Cervicalgia (principal); R26.89 Other abnormalities of gait and mobility; R51.9 Headache, unspecified
CPT/HCPCS: 97110; 97140; 97162

== ENCOUNTER 2023-10-24 09:30 | Outpatient (REF) | payer OTHER, SELFPAY ==
[2023-10-25 11:56] LABS: BV Int Neg Control Negative (Negative); BV Int Pos Control Positive (Positive)
== END 2023-10-24 09:31 | disposition home or self-care (01) ==
LOC: HO.LNP 09:30
PROVIDERS: PCP Family Medicine; Visit Provider Advanced Practice Midwife
DX: R10.2 Pelvic and perineal pain (principal); N83.202 Unspecified ovarian cyst, left side
CPT/HCPCS: 81003; 87480; 87510; 87660; 99212

== ENCOUNTER 2023-10-24 09:30 | Outpatient (AMB) | payer OTHER, SELFPAY ==
[2023-10-24 09:37] VITALS: BP 142/80; BMI 29.9
--- NOTE | 2023-10-24 09:37 | MHC.OFFVIS ---
Intake Vital Signs 10/24/23 09:37 Height 4 ft 11 in Weight 148 lb BMI 29.9 BP 142/80 H Intake Visit Reasons: Bilateral Pelvic Pain Intake Note: Pain in her ovaries Wad Blanking Press Adjuster Required: Yes Wad Blanking Press Adjuster Language: Machine Rigger Name: Rosario De Souza Information Interpreted: non-clinical & clinical Developmental Behavioral Physician: Developmental Behavioral Physician Present (Rosario) Allergies codeine [CODEINE] Allergy (Severe, Verified 10/24/23 09:45) VOMITING buprenorphine Allergy (Intermediate, Verified 10/24/23 09:45) dizziness,nausea, vomiting lisinopril Allergy (Intermediate, Verified 10/24/23 09:45) cough naproxen [Naprosyn] Allergy (Intermediate, Verified 10/24/23 09:45) vomitting Penicillins [PENICILLINS] Allergy (Intermediate, Verified 10/24/23 09:45) RASH Is last menstrual period known: No Post menopausal: Yes Patient : No HPI HPI Comments History of Present Illness Details Presents today with increased discomfort in her lower left pelvic area. Known history of a left ovarian cyst approximately 5 cm. Last seen for this in June and has a 6 month follow-up for the cyst booked. History of small fibroid. History of bacterial vaginosis. She denies any new intimate partners. [facility] Medical History Abnormal Pap smear of cervix HTN, goal below 130/80 History of depression Asthma Surgical History History of trigger finger History of bilateral carpal tunnel release History of sleeve gastrectomy History of cholecystectomy Family History Father No problems noted. Mother Stroke Heart attack Uterine cancer Smoker Lung cancer Sister S/P KIERAN-BSO (total abdominal hysterectomy and bilateral salpingo-oophorectomy) Other Mental health disorder Substance use disorder Social History Household Members Other:: daughter Housing: Apartment Alcohol intake: never Patient Tobacco Use Status: Former Tobacco user Tobacco use type: Cigarette e-Cigarette/Vaping Use: Never Used Patient : No service: No Current occupational status: disabled Sexual orientation: Straight/Heterosexual Gender identity: Female Cognitive needs: No Hearing needs: No Vision needs: Yes Female Reproductive History Menstrual Age of Menarche: 14 control method: permanent sterilization Total pregnancies: 3 Full term: 3 Number of Living Children: 3 Date of last pap smear: 04/21/22 (negative) Review of Systems Const All systems reviewed & are unremarkable except as noted in HPI and below Physical Exam Vital Signs: Last Vital Signs BP 142/80 H 10/24/23 09:37 BMI result Body Mass Index 29.9 Const General: cooperative, healthy appearing and no acute distress Orientation/consciousness: patient oriented x3 GI Inspection: Yes normal to inspection Palpation (GI): Soft to palpation and Other GI palpation findings present (Nontender) Rectal Exam - Female: visual inspection normal General: Yes bladder normal to palpation External Female Exam: normal appearance of the urethra Speculum Exam - Vagina: normal appearance of the vagina, normal palpation and normal vaginal discharge Speculum Exam - Cervix: normal appearance of the cervix and normal palpation Bimanual exam- vagina & uterus: normal bimanual exam, normal palpation, uterine size normal, bladder normal to palpation, normal palpation, uterine shape normal and non-tender Bimanual Exam- Adnexa, other: normal adnexae Neuro General: patient oriented x3 Assessment & Plan Assessment & Plan (1) Ovarian cyst: Code(s): N83.209 - Unspecified ovarian cyst, unspecified side Qualifiers: Laterality: left Qualified Code(s): N83.202 - Unspecified ovarian cyst, left side (2) Pelvic pain: Code(s): R10.2 - Pelvic and perineal pain Plan Discussed: Plan of care, repeat pelvic ultrasound this week pelvic rest and warnings when to seek emergent care, advised comfort measures. Return to the office after ultrasound results are back for review. All of her questions and concerns were addressed to the best of my ability and shared decision making. She is agreeable to the plan of care. Orders: Orders US pelvic and transvaginal Today N83.209 - Unspecified ovarian cyst, unspecified side, R10.2 - Pelvic and perineal pain Coding Level of Care Code Est Pt Level 3 (78788) Diagnoses Cyst of left ovary N83.202 Laterality: left Pelvic pain R10.2
== END 2023-10-24 12:49 | disposition home or self-care (01) ==
PROVIDERS: PCP Family Medicine; Visit Provider Advanced Practice Midwife
DX: N83.202 Unspecified ovarian cyst, left side (principal); R10.2 Pelvic and perineal pain
CPT/HCPCS: 99213

== ENCOUNTER 2023-10-30 14:22 | Outpatient (REF) | payer OTHER, SELFPAY ==
--- NOTE | ~2023-10-30 | US_ITS ---
EXAMINATION: US PELVIS CLINICAL INFORMATION: Unspecified ovarian cysts, unspecified side Postmenopausal COMPARISON: Pelvic ultrasound 06/26/2023, CT scan abdomen and pelvis 07/01/2017 TECHNIQUE: Ultrasound of the pelvis is performed using both transabdominal and transvaginal transducers along with Doppler. Transvaginal imaging is performed due to inadequate visualization transabdominally. FINDINGS: Uterus: The uterus is anteverted and measures 5.7 x 2.8 x 5.3 cm. Fibroids: 5 fibroids are seen. 1. Anterior fundus, subserosal, 1.3 x 1.1 x 1.1 cm. 2. Leftward fundal, exophytic, 1.6 x 1.7 x 2.3 cm. 3. Left posterior intramural body, a 0.6 x 0.5 x 0.8 cm. 4. Right posterior subserosal, new, a 0.9 x 0.9 x 1.8 cm. 5. Anterior mid to upper, intramural, new 0.7 x 0.8 x 0.8 cm The endometrial thickness is 0.3 cm Both ovaries are of normal echogenicity. Right ovary is normal in appearance and measures 2.9 x 1.5 x 2.0 cm. Volume 4.5 mL. Left ovary measures 5.8 x 4.0 x 4.5 cm. Volume 55.1 mL 5.6 x 4.1 x 4.6 cm simple left ovarian cyst previously measured 5.0 x 3.5 x 4.3 cm. This raises concern for a low-grade cystic neoplasm in this postmenopausal woman. US/US pelvic and transvaginal IMPRESSION: 1. Uterine fibroids as detailed above. 2. 5.6 cm simple left ovarian cyst raises concern for a low-grade cystic neoplasm and is postmenopausal woman. Either HOSPITAL MONITOR consult and follow-up ultrasound in 6-12 months months or MRI with IV contrast for improved characterization. 3. Normal appearance of the right ovary.
== END 2023-10-30 14:23 | disposition home or self-care (01) ==
LOC: HO.HMGCX 14:22
PROVIDERS: PCP Family Medicine; Visit Provider Advanced Practice Midwife
DX: R10.2 Pelvic and perineal pain (principal); N83.209 Unspecified ovarian cyst, unspecified side
CPT/HCPCS: 76830; 76856

== ENCOUNTER 2023-11-07 13:47 | Outpatient (REF) | payer OTHER, SELFPAY ==
[2023-11-07 17:05] LABS: Carcinoembryonic Antigen < 1.73 ng/mL
[2023-11-08 08:18] LABS: Carbohydrate Antigen 19-9 16 U/mL (<34)
[2023-11-08 08:59] LABS: CA-125 8 U/mL (<35)
== END 2023-11-07 13:48 | disposition home or self-care (01) ==
LOC: HO.LAB 13:47
PROVIDERS: PCP Family Medicine; Visit Provider Advanced Practice Midwife
DX: N83.299 Other ovarian cyst, unspecified side (principal); R10.2 Pelvic and perineal pain; Z71.2 Person consulting for explanation of examination or test findings
CPT/HCPCS: 36415; 82378; 86301; 86304; 99212

== ENCOUNTER 2023-11-07 13:47 | Outpatient (AMB) | payer OTHER, SELFPAY ==
--- NOTE | 2023-11-07 13:49 | MHC.OFFVIS ---
Intake Vital Signs 11/07/23 13:51 Height 4 ft 11 in Weight 147 lb 11.355 oz BMI 29.8 BP 120/72 Intake Visit Reasons: Test results/ per Florina Smith Tight Rope Walker Required: Yes Tight Rope Walker Language: Graduate Civil Engineer Name: Rosario PEREZ Information Interpreted: non-clinical & clinical Accompanied by: Self / Same As Patient Allergies codeine [CODEINE] Allergy (Severe, Verified 11/07/23 13:51) VOMITING buprenorphine Allergy (Intermediate, Verified 11/07/23 13:51) dizziness,nausea, vomiting lisinopril Allergy (Intermediate, Verified 11/07/23 13:51) cough naproxen [Naprosyn] Allergy (Intermediate, Verified 11/07/23 13:51) vomitting Penicillins [PENICILLINS] Allergy (Intermediate, Verified 11/07/23 13:51) RASH Post menopausal: Yes HPI HPI Comments History of Present Illness Details Patient is here for today for test results. She has a history of ovarian cyst with discomfort. She is postop abdominal plasty repair from last week taking prescription pain medicine, does not report pelvic pain today. [facility] Medical History Abnormal Pap smear of cervix HTN, goal below 130/80 History of depression Asthma Surgical History History of trigger finger History of bilateral carpal tunnel release History of sleeve gastrectomy History of cholecystectomy Family History Father No problems noted. Mother Stroke Heart attack Uterine cancer Smoker Lung cancer Sister S/P KIERAN-BSO (total abdominal hysterectomy and bilateral salpingo-oophorectomy) Other Mental health disorder Substance use disorder Social History Household Members Other:: daughter Housing: Apartment Alcohol intake: never Patient Tobacco Use Status: Former Tobacco user Tobacco use type: Cigarette e-Cigarette/Vaping Use: Never Used service: No Current occupational status: disabled Sexual orientation: Straight/Heterosexual Gender identity: Female Cognitive needs: No Hearing needs: No Vision needs: Yes Female Reproductive History Menstrual Age of Menarche: 14 Physical Exam Vital Signs: Last Vital Signs BP 120/72 11/07/23 13:51 BMI result Body Mass Index 29.8 Results Reviewed Results Reviewed: [facility] [place] [address] [address] Ultrasound Report Signed Patient: Margot Kamara MR#: [id number] : 1965 Acct:[id number] Age/Sex: 58 / F ADM Date: 10/30/23 Loc: HO.HMGCX Attending Dr: Florina Gilbert CNM Ordering Physician: Florina Gilbert CNM Date of Service: 10/30/23 Procedure(s): US pelvic and transvaginal Accession Number(s): [id number] cc: Juan Medellin MD; Florina Gilbert CNM~ EXAMINATION: US PELVIS CLINICAL INFORMATION: Unspecified ovarian cysts, unspecified side Postmenopausal COMPARISON: Pelvic ultrasound 06/26/2023, CT scan abdomen and pelvis 07/01/2017 TECHNIQUE: Ultrasound of the pelvis is performed using both transabdominal and transvaginal transducers along with Doppler. Transvaginal imaging is performed due to inadequate visualization transabdominally. FINDINGS: Uterus: The uterus is anteverted and measures 5.7 x 2.8 x 5.3 cm. Fibroids: 5 fibroids are seen. 1. Anterior fundus, subserosal, 1.3 x 1.1 x 1.1 cm. 2. Leftward fundal, exophytic, 1.6 x 1.7 x 2.3 cm. 3. Left posterior intramural body, a 0.6 x 0.5 x 0.8 cm. 4. Right posterior subserosal, new, a 0.9 x 0.9 x 1.8 cm. 5. Anterior mid to upper, intramural, new 0.7 x 0.8 x 0.8 cm The endometrial thickness is 0.3 cm Both ovaries are of normal echogenicity. Right ovary is normal in appearance and measures 2.9 x 1.5 x 2.0 cm. Volume 4.5 mL. Left ovary measures 5.8 x 4.0 x 4.5 cm. Volume 55.1 mL 5.6 x 4.1 x 4.6 cm simple left ovarian cyst previously measured 5.0 x 3.5 x 4.3 cm. This raises concern for a low-grade cystic neoplasm in this postmenopausal woman. US/US pelvic and transvaginal IMPRESSION: 1. Uterine fibroids as detailed above. 2. 5.6 cm simple left ovarian cyst raises concern for a low-grade cystic neoplasm and is postmenopausal woman. Either NURSING HOME DIRECTOR consult and follow-up ultrasound in 6-12 months months or MRI with IV contrast for improved characterization. 3. Normal appearance of the right ovary. Dictated By: Annalisa Hutchinson MD Signed By: <Electronically signed by Annalisa Hutchinson MD in OV> 10/30/23 1617 DD/ 1508 TD/TT: Line Staker: Assessment & Plan Assessment & Plan (1) Pelvic pain: Code(s): R10.2 - Pelvic and perineal pain (2) Complex ovarian cyst: Code(s): N83.299 - Other ovarian cyst, unspecified side (3) Encounter to discuss test results: Code(s): Z71.2 - Person consulting for explanation of examination or test findings Plan Discussed recommendations of referral to ophthalmologist Onc at [facility]. Tumor markers today. Discussed recommendations per radiology report verses observing with adequate follow-up. All of her questions and concerns were addressed to the best of my ability and shared decision making. She is agreeable to the plan of care of referral to the Gyne Onc at this time. Referral placed. This note is constructed using voice recognition software. While every effort has been made to ensure accuracy, footwear sales leader errors may have been included. Orders: Referrals Gynecologic Oncology Referral N83.299 - Other ovarian cyst, unspecified side Coding Level of Care Code Est Pt Level 3 (46476) Diagnoses Pelvic pain R10.2 Complex ovarian cyst N83.299 Encounter to discuss test results Z71.2
[2023-11-07 13:51] VITALS: BP 120/72; BMI 29.8
== END 2023-11-07 16:00 | disposition home or self-care (01) ==
LOC: HO.HWS 13:47
PROVIDERS: PCP Family Medicine; Visit Provider Advanced Practice Midwife
DX: R10.2 Pelvic and perineal pain (principal); N83.299 Other ovarian cyst, unspecified side; Z71.2 Person consulting for explanation of examination or test findings
CPT/HCPCS: 99213

== ENCOUNTER 2023-11-14 14:58 | Outpatient (AMB) | payer OTHER, SELFPAY ==
--- NOTE | 2023-11-14 15:06 | MHC.OFFVIS ---
Intake Vital Signs 11/14/23 15:07 Height 4 ft 11 in Weight 145 lb 8.081 oz BMI 29.4 BP 122/64 Blood Pressure Location Rt brachial Position Sitting Temp 97.7 F Temp Source Skin Intake Visit Reasons: trigger finger Intake Note: Pt last seen 09/06/23, presents today for follow up and test results. Diabetologist Required: Yes Diabetologist Name: Umesh [id number] Accompanied by: Self / Same As Patient Allergies codeine [CODEINE] Allergy (Severe, Verified 11/14/23 15:10) VOMITING buprenorphine Allergy (Intermediate, Verified 11/14/23 15:10) dizziness,nausea, vomiting lisinopril Allergy (Intermediate, Verified 11/14/23 15:10) cough naproxen [Naprosyn] Allergy (Intermediate, Verified 11/14/23 15:10) vomitting Penicillins [PENICILLINS] Allergy (Intermediate, Verified 11/14/23 15:10) RASH Medication List - Last Reconciled 11/14/23 by Maria L Mckeon MD acetaminophen ER (Tylenol 8 Hour) 650 mg PO Q8H PRN blood pressure monitor Automatic, Digital. Dx: I10. Daily As directed, 999 days/lifetime blood sugar diagnostic (FreeStyle Lite Strips) USE NEEDED TWICE A DAY blood-glucose meter (FreeStyle Lite Meter kit) for daily and prn blood sugars cane Daily As directed, 999days/Lifetime. cetirizine 10 mg PO DAILY clonazepam 1 mg PO DAILY PRN 30 days fluticasone propionate 50 mcg/actuation 1 spray intranasal DAILY fluticasone propionate 220 mcg/actuation (Flovent HFA) 2 puffs inhalation BID 30 days lancets (FreeStyle Lancets) 1 gauge topical BID PRN losartan 25 mg PO BID olopatadine 0.1% (Pataday Twice Daily Relief) 1 drp ophthalmic (eye) BID 1 month ondansetron HCl mg PO pantoprazole 40 mg PO DAILY phentermine 15 mg PO QAM sertraline 150 mg (1.5 x 100 mg) PO QAM zolpidem 10 mg PO BEDTIME PRN HPI HPI Comments History of Present Illness Details Patient returns for follow-up after completion of her diagnostic workup. States that the pain and swelling of her right middle finger has subsided. Currently she does not have any swelling, stiffness or pain in any of her hands wrists. She continues to have some shoulder pain and stiffness. She gets chronic bilateral knee pain that fluctuates in intensity, usually worse with activity. She avoids NSAIDs due to history of sleeve gastrectomy [facility] Medical History Abnormal Pap smear of cervix HTN, goal below 130/80 History of depression Asthma Surgical History History of trigger finger History of bilateral carpal tunnel release History of sleeve gastrectomy History of cholecystectomy Family History Father No problems noted. Mother Stroke Heart attack Uterine cancer Smoker Lung cancer Sister S/P KIERAN-BSO (total abdominal hysterectomy and bilateral salpingo-oophorectomy) Other Mental health disorder Substance use disorder Social History Household Members Other:: daughter Housing: Apartment Alcohol intake: never Patient Tobacco Use Status: Former Tobacco user Tobacco use type: Cigarette e-Cigarette/Vaping Use: Never Used service: No Current occupational status: disabled Sexual orientation: Straight/Heterosexual Gender identity: Female Cognitive needs: No Hearing needs: No Vision needs: Yes Female Reproductive History Menstrual Age of Menarche: 14 Review of Systems Musc Reports arthralgias, Reports limited range of motion and Reports stiffness Physical Exam Vital Signs: Last Vital Signs Temp 97.7 F 11/14/23 15:07 BP 122/64 11/14/23 15:07 BMI result Body Mass Index 29.4 Const General: cooperative, healthy appearing and comfortable Nutritional Appearance: overweight Orientation/consciousness: patient oriented x3 Limitations: no limitations HEENT Head: Yes normocephalic and Yes atraumatic Mouth: moist mucous membranes Resp Effort & Inspection: normal respiratory effort and able to speak in complete sentences Skin General skin exam: no rashes or lesions noted Neuro General: patient oriented x3 Extrem Other: Right middle finger dactylitis has resolved. No active synovitis both hands, and wrists No elbow pain with flexion and extension bilaterally Normal range of motion of both shoulders Bilateral knee pain with flexion and extension No ankle swelling or tenderness bilaterally Results Reviewed Results Reviewed: Right shoulder x-ray from 02/2023 XR/XR shoulder RT min 2V IMPRESSION: Right shoulder calcific tendinitis. Appearance is improved since study of 06/26/2017. Assessment & Plan Assessment & Plan (1) Tendinitis of right hand: Code(s): M77.8 - Other enthesopathies, not elsewhere classified Plan: 58-year-old female presents for evaluation of right middle finger pain and swelling as well as right shoulder and right knee pain. States that for years she would have episodic pain and swelling of multiple fingers. She had 2 trigger finger release procedures for left hand as well as carpal tunnel release surgery in the past. Last visit patient had right middle finger dactylitis that was injected. Upon evaluation today the synovitis has resolved. 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 We need to start DMARDs. Discussed risks and benefits of DMARD such as methotrexate and sulfasalazine and patient was worried about side effects. She did not want to start DMARDs today. I discussed with patient the risks of not starting DMARDs such as ongoing joint pain and swelling, joint damage, ruptured tendons,...etc. She will think about it. Follow-up as needed Plan I spent 26 minutes reviewing patient's chart, evaluating patient, counseling patient and documenting in the chart Coding Level of Care Code Est Pt Level 4 (32311) Diagnoses Tendinitis of right hand M77.8
[2023-11-14 15:07] VITALS: BP 122/64; TEMP 36.5; BMI 29.4
== END 2023-11-14 15:34 | disposition home or self-care (01) ==
PROVIDERS: PCP Family Medicine; Visit Provider Student in an Organized Health Care Education/Training Program
DX: M77.8 Other enthesopathies, not elsewhere classified (principal)
CPT/HCPCS: 99214

== ENCOUNTER → 2023-11-14 14:58 | Outpatient (BNVA) | payer OTHER, SELFPAY | PROVIDERS: PCP Family Medicine; Visit Provider Student in an Organized Health Care Education/Training Program | DX: M77.8 Other enthesopathies, not elsewhere classified (principal) | CPT/HCPCS: 99212 ==

== ENCOUNTER → 2023-12-03 09:54 | Outpatient (REF) | payer OTHER, SELFPAY | LOC: HO.SL 09:54 | PROVIDERS: PCP Family Medicine; Visit Provider Psychiatry & Neurology Neurology | DX: G47.33 Obstructive sleep apnea (adult) (pediatric) (principal) | CPT/HCPCS: 95806 ==

== ENCOUNTER → 2023-12-03 19:00 | Outpatient (BNV) | payer OTHER, SELFPAY | PROVIDERS: PCP Family Medicine; Visit Provider Internal Medicine | DX: G47.33 Obstructive sleep apnea (adult) (pediatric) (principal) | CPT/HCPCS: 95806 ==

== ENCOUNTER 2024-01-14 13:23 | Outpatient (AMB) | payer OTHER, SELFPAY ==
--- NOTE | 2024-01-14 13:45 | MHC.PC.OV ---
Vital Signs 01/14/24 13:50 Height 4 ft 11 in Weight 145 lb 8 oz BMI 29.4 BP 124/64 Pulse 86 Pulse Source Pulse Oximeter Pulse Oximetry (%) 97 Oxygen Delivery Method Room Air Intake Visit Reasons: Annual PE Intake Note: Patient is here for her physical today. Allergies codeine [CODEINE] Allergy (Severe, Verified 01/14/24 13:51) VOMITING buprenorphine Allergy (Intermediate, Verified 01/14/24 13:51) dizziness,nausea, vomiting lisinopril Allergy (Intermediate, Verified 01/14/24 13:51) cough naproxen [Naprosyn] Allergy (Intermediate, Verified 01/14/24 13:51) vomitting Penicillins [PENICILLINS] Allergy (Intermediate, Verified 01/14/24 13:51) RASH Medication List - Last Reconciled 01/14/24 by Juan Medellin MD acetaminophen ER (Tylenol 8 Hour) 650 mg PO Q8H PRN blood pressure monitor Automatic, Digital. Dx: I10. Daily As directed, 999 days/lifetime blood sugar diagnostic (FreeStyle Lite Strips) USE NEEDED TWICE A DAY blood-glucose meter (FreeStyle Lite Meter kit) for daily and prn blood sugars cane Daily As directed, 999days/Lifetime. cetirizine 10 mg PO DAILY clonazepam 1 mg PO DAILY PRN 30 days fluticasone propionate 50 mcg/actuation 1 spray intranasal DAILY fluticasone propionate 220 mcg/actuation (Flovent HFA) 2 puffs inhalation BID 30 days lancets (FreeStyle Lancets) 1 gauge topical BID PRN losartan 25 mg PO BID olopatadine 0.1% (Pataday Twice Daily Relief) 1 drp ophthalmic (eye) BID 1 month ondansetron HCl mg PO pantoprazole 40 mg PO DAILY phentermine 15 mg PO QAM sertraline 150 mg (1.5 x 100 mg) PO QAM zolpidem 10 mg PO BEDTIME PRN Tobacco use date assessed: 01/14/24 Dental Screening Dental Screen Date: 01/14/24 Did you have a dental visit in the last 12 months?: No Did you have a dental problem in the last 6 months where you did not have access to dental care?: No Was dental information given to patient?: Patient declined HPI Annual PE HPI Details 58 y/o female presents for an extended exam with f/u labs and health maintenance. No recent labs to review. PHQ-9 6 and DICKSON-7 10 today. She reports she has been taking her sertraline 150mg. A1C today 01/14/24 is 6.1%. Diet controlled diabetes. Pt reports ongoing GERD and has been taking pantoprazole 40mg daily. Last mammogram in June which was fine. Followed by [facility] for an ovarian cyst. [facility] Medical History Abnormal Pap smear of cervix HTN, goal below 130/80 History of depression Asthma Surgical History History of trigger finger History of bilateral carpal tunnel release History of sleeve gastrectomy History of cholecystectomy Family History Father No problems noted. Mother Stroke Heart attack Uterine cancer Smoker Lung cancer Sister S/P KIERAN-BSO (total abdominal hysterectomy and bilateral salpingo-oophorectomy) Other Mental health disorder Substance use disorder Social History Household Members Other:: daughter Housing: Apartment Alcohol intake: never Patient Tobacco Use Status: Former Tobacco user Tobacco use type: Cigarette e-Cigarette/Vaping Use: Never Used service: No Current occupational status: disabled Sexual orientation: Straight/Heterosexual Gender identity: Female Cognitive needs: No Hearing needs: No Vision needs: Yes Female Reproductive History Menstrual Age of Menarche: 14 Questionnaire PHQ-9 Over the last 2 weeks, how often have you been bothered by any of the following problems? 1. Little interest or pleasure in doing things: several days 2. Feeling down, depressed, or hopeless: several days 3. Trouble falling or staying asleep, or sleeping too much: several days 4. Feeling tired or having little energy: several days 5. Poor appetite or overeating: not at all 6. Feeling bad about yourself - or that you are a failure or have let yourself or your family down: several days 7. Trouble concentrating on things, such as reading the newspaper or watching television: several days 8. Moving or speaking so slowly that other people could have noticed. Or the opposite - being so fidgety or restless that you have been moving around a lot more than usual: not at all 9. Thoughts that you would be better off or of hurting yourself in some way: not at all Total score: 6 Depression Screening Interpretation: Positive Depression Screening Follow-up: Change in Medication (Increased?sertraline) Depression Screening Done: Yes 94691 - PHQ-9 Billing: Yes Source: Developed by Drs. Raheel Calix, Yani Vargas, Willie Osorio and colleagues, with an educational janine from [employer]. Thrive Questionnaire Date Thrive assessed: 01/14/24 I am a: Patient What is your living situation today?: I have a steady place to live Within the past 12 months, did the food you bought not last and you didn't have the money to get more?: Never true Within the past 12 months, did you worry whether your food would run out before you got money to buy more?: Never true Do you have trouble paying for medicines?: No Do you have trouble getting transportation to medical appointments?: No Do you have trouble paying your heating and electricity bill?: No Do you have trouble taking care of your child, family member or friend?: Yes Do you have trouble with day-to-day activities such as bathing, preparing meals, shopping, managing finances, etc.?: Yes Are you currently unemployed and looking for a job?: No Are you interested in more education?: No THRIVE Score: 0 AUDIT C Alcohol Use Questionnaire (AUDIT-C) 1. How often do you have a drink containing alcohol?: Never 3. How often do you have six or more drinks on one occasion?: Never Total Score: 0 DICKSON-7 AMB Questionnaire DICKSON-7 Date DICKSON - 7 assessed: 01/14/24 Feeling nervous, anxious, or on edge: 3 = Nearly every day Not being able to stop or control worryin = Several days Worrying too much about different things: 1 = Several days Trouble relaxin = More than half the days Being so restless that it is hard to sit still: 2 = More than half the days Becoming easily annoyed or irritable: 1 = Several days Feeling afraid as if something awful might happen: 0 = Not at all Total DICKSON-7 score (0-4 normal; 5-9 mild; 10-14 moderate; 15-21 severe): 10 Source: Developed by Drs. Raheel Calix, Yani Vargas, Willie Osorio and colleagues, with an educational janine from [employer]. DICKSON-7 Assessment Billing DICKSON-7 Assessment Tool: DICKSON-7 Assessment 50491 ACT Questionnaire In the past 4 weeks, how much of the time did your asthma keep you from getting as much done at work, school or at home?: A little of the time During the past 4 weeks, how often have you had shortness of breath?: 1-2 times a week During the past 4 weeks, how often did your asthma symptoms wake you up at night or earlier than usual in the morning?: Once or twice per week During the past 4 weeks, how often have you had to use your rescue inhaler or nebulizer medication?: Not at all How would you rate your asthma control during the past 4 weeks?: Somewhat controlled Score: 20 Review of Systems Const Denies chills, Denies fatigue, Denies fever(s), Denies headache(s) and Denies weakness Eyes Denies change in vision ENT Denies dizziness, Denies headache(s), Denies hearing loss, Denies nasal congestion, Denies sinus pain, Denies sinus pressure and Denies sore throat Card Denies chest pain, Denies lightheadedness, Denies dyspnea and Denies other (palpitations) Resp Denies cough, Denies dyspnea and Denies wheezing GI Denies abdominal pain, Denies melena, Denies hematochezia, Denies change in bowel habits, Denies dyspepsia and Denies nausea Denies hematuria and Denies dysuria Musc Denies abnormal gait, Denies myalgias, Denies arthralgias, Denies numbness and Denies tingling Skin/Breast Denies rash, Denies unusual bruising and Denies wounds Neuro Denies abnormal gait, Denies dizziness, Denies headache(s), Denies memory loss, Denies numbness, Denies Sensory deficit (Neuro), Denies tingling and Denies weakness Psych Denies anxiety, Denies depression and Denies memory loss Endo Denies cold intolerance, Denies fatigue, Denies heat intolerance, Denies polydipsia and Denies polyuria Rocco/Lymph Denies easy bleeding and Denies easy bruising Aller/Immun Denies wheezing Physical exam (Primary Care) Vital Signs: Last Vital Signs Pulse 86 01/14/24 13:50 BP 124/64 01/14/24 13:50 Pulse Ox 97 01/14/24 13:50 Oxygen Delivery Method Room Air 01/14/24 13:50 BMI result Body Mass Index 29.4 Tobacco/Smoking Status: Tobacco use Status Tobacco use date assessed 01/14/24 01/14/24 13:55 Patient Tobacco Use Status Former Tobacco user 01/14/24 13:45 Tobacco use type Cigarette 01/14/24 13:45 e-Cigarette/Vaping Use Never Used 01/14/24 13:45 PHQ-9: PHQ-9 Score PHQ-9: Total score 6 01/14/24 14:11 Depression Screening Interpretation: Positive Depression Screening Follow-up: Change in Medication (Increased?sertraline) Thrive Assessment: Date of Thrive Assessment Date Thrive assessed 01/14/24 01/14/24 14:07 Const General: no acute distress, well developed, alert and awake Nutritional Appearance: well nourished Orientation/consciousness: patient oriented x3 HENMT Head: Yes normocephalic and Yes atraumatic Ears: hearing grossly normal bilaterally and TM's normal bilaterally General nose exam: Normal external nose present and Normal nares present Mouth: Normal oral and palatal mucosa present and moist mucous membranes Teeth and gingiva: dentition normal Throat: Yes posterior oropharynx normal Eyes General: appearance normal, both eyes and all related structures Pupils: Equal, round and reactive pupils present and Pupil accommodation reflex normal EOM: EOMs intact bilaterally Neck Neck: Yes normal visual inspection, Yes no lymphadenopathy and Yes trachea midline Thyroid: Thyroid normal Carotids: no bruits Lymphatic: no lymphadenopathy noted Chest Chest palpation & inspection: normal inspection of the chest Resp Effort & Inspection: normal respiratory effort Auscultation: clear to auscultation bilaterally Cardio Rate: regular rate Rhythm: regular rhythm Heart sounds: S1 normal heart sound present, S2 normal heart sound present, no gallops, no murmurs and no rubs Bruits: no abdominal aortic bruits and no carotid bruits GI Palpation (GI): No Abdominal aortic bruit present, Soft to palpation, nontender, No hepatosplenomegaly present and No Rebound tenderness present Auscultation: normal bowel sounds General: Yes no CVA tenderness Back/Spine/Pelvis Back: no CVA tenderness Cervical Spine: cervical ROM normal and No Cervical spine tenderness Thoracic/Lumbar Spine: thoraco-lumbar ROM normal, No pain with thoraco-lumbar ROM, No thoracic spinal tenderness and No lumbar spinal tenderness Skin Lesions: no lesions Rashes: no rashes Trauma: no lacerations or abrasions Wounds: no wounds Nails: normal Neuro General: patient oriented x3 Cranial nerves: Yes Equal, round and reactive pupils present Cognition (Neuro): normal cognition Gait exam (Neuro): Normal gait present Motor exam (neuro): 5/5 motor strength present throughout Sensory Exam: No Sensory deficit (Neuro) Deep tendon reflexes (DTR's): Right patellar reflex intensity grade: 2+ and Left patellar reflex intensity grade: 2+ Extrem General: Yes normal to inspection and No edema Psych Appearance: grossly normal Affect: normal affect Attitude: cooperative Thought process: Normal thought process present Results AMB Hemoglobin A1c AMB Hemoglobin A1c 6.1 % Last Edit by Zunilda Neal CMA on 01/14/24 14:24 Assessment and Plan Assessment & Plan (1) HTN, goal below 130/80: Code(s): I10 - Essential (primary) hypertension Plan: Blood?pressure?is?controlled.??Goal?is?less?than?140/90 Continue?current?medication (2) Screening for colon cancer: Code(s): Z12.11 - Encounter for screening for malignant neoplasm of colon Plan: Patient?says?she?can?not?tolerate?prep She?denies?any?history?of?abnormal?colonoscopies?or?colon?cancer.??She?denies?any?family?history?of?polyps?or?colon?cancer. Will?try?Cologuard?test - ordered (3) Diabetes type 2, no ocular involvement: Onset Date: Unknown Code(s): E11.9 - Type 2 diabetes mellitus without complications Plan: History?of?diabetes?now?diet?controlled - she?has?lost?weight?secondary?to?bariatric?surgery A1c?today?6.1%.??Goal?is?less?than?7.0% Encouraged?a?diet?low?in?sugars?and?starches (4) Depression with anxiety: Code(s): F41.8 - Other specified anxiety disorders Plan: Increased?her?sertraline Continue?clonazepam Will?follow-up?at?next?visit (5) Screening for cervical cancer: Code(s): Z12.4 - Encounter for screening for malignant neoplasm of cervix Plan: Followed?by?OBGYN. Last?Pap?smear?in?2021?was?negative. Continue?screening?with?OBGYN. She?is?also?followed?by?her?post framer?for?an ovarian?cyst?and?has?MRI?planned. (6) Breast cancer screening by mammogram: Code(s): Z12.31 - Encounter for screening mammogram for malignant neoplasm of breast Plan: Last?mammogram?in?June?2022?was?negative?for?malignancy. Continue?annual?screening (7) Polyarthralgia: Code(s): M25.50 - Pain in unspecified joint Plan: She?would?like?to?speak?to?the?director online marketing?again?regarding?medications. May?not?tolerate?oral?NSAIDs?as?she?has?significan?GERD?and?will?C?gastroenterology?regarding?this. Meantime,?continue?Tylenol?but?do?not?exceed?threshold?which?were?discussed?with?her?today. Will?give?her?a?topical?NSAID Follow-up?with?rheumatology (8) Ovarian cyst: Code(s): N83.209 - Unspecified ovarian cyst, unspecified side Plan: Follow-up?with?post framer Has?surveillance?planned?by?MRI?to?ensure?stability (9) Adult general medical examination: Code(s): Z00.00 - Encounter for general adult medical examination without abnormal findings Plan: 58-year-old?female?presents?for?an?extended?exam Stable (10) GERD (gastroesophageal reflux disease): Code(s): K21.9 - Gastro-esophageal reflux disease without esophagitis Plan: On?pantoprazole?but?still Has?significant?GERD. Referred?to?GI.??Meantime,?continue?pantoprazole?and?can?use?some?famotidine?at?bedtime?p.r.n. Orders: Orders Lipid Panel Today Z00.00 - Encounter for general adult medical examination without abnormal findings UA and rflx microscopic Today Z00.00 - Encounter for general adult medical examination without abnormal findings Comprehensive [place]. Panel Fast Today Z00.00 - Encounter for general adult medical examination without abnormal findings Microalbumin, Random (w Creat) Today I10 - Essential (primary) hypertension TSH reflex Free T4 Today Z00.00 - Encounter for general adult medical examination without abnormal findings AMB Hemoglobin A1c Today Z13.9 - Encounter for screening, unspecified Referrals Rheumatology Referral M25.50 - Pain in unspecified joint Cologuard Test Z12.11 - Encounter for screening for malignant neoplasm of colon, Z12.12 - Encounter for screening for malignant neoplasm of rectum Gastroenterology Referral K21.9 - Gastro-esophageal reflux disease without esophagitis Medications: New famotidine 40 mg PO BEDTIME 30 days 30 tabs 1RF diclofenac sodium 1% (Arthritis Pain (diclofenac)) apply to single elbow, wrist or hand; for hand includes palm/fingers/back of hand 2 grams topical QID 30 days 100 grams 0RF Changed From sertraline 150 mg (1.5 x 100 mg) PO QAM 45 tabs 8RF To sertraline 200 mg (2 x 100 mg) PO QAM 90 days 180 tabs 8RF Refilled acetaminophen ER (Tylenol 8 Hour) 650 mg PO Q8H PRN 90 tabs 0RF pain K21.9 - Gastro-esophageal reflux disease without esophagitis Coding Level of Care Code Est Pt Level 4 (99040) Diagnoses HTN, goal below 130/80 I10 Screening for colon cancer Z12.11 Diabetes type 2, no ocular involvement E11.9 Depression with anxiety F41.8 Screening for cervical cancer Z12.4 Breast cancer screening by mammogram Z12.31 Polyarthralgia M25.50 Ovarian cyst N83.209 Adult general medical examination Z00.00 GERD (gastroesophageal reflux disease) K21.9 Additional Codes DICKSON-7 Assessment Billing - DICKSON-7 Assessment Tool: DICKSON-7 Assessment 45310 ([id number])
[2024-01-14 13:50] VITALS: BP 124/64; PULSE 86; O2SAT 97; BMI 29.4
== END 2024-01-14 14:55 | disposition home or self-care (01) ==
PROVIDERS: PCP Family Medicine; Visit Provider Family Medicine
DX: Z00.00 Encounter for general adult medical examination without abnormal findings (principal); I10 Essential (primary) hypertension; Z12.11 Encounter for screening for malignant neoplasm of colon; E11.9 Type 2 diabetes mellitus without complications; F41.8 Other specified anxiety disorders; Z12.31 Encounter for screening mammogram for malignant neoplasm of breast; M25.50 Pain in unspecified joint; N83.209 Unspecified ovarian cyst, unspecified side; K21.9 Gastro-esophageal reflux disease without esophagitis
CPT/HCPCS: 83036; 96127; 99213; 99396

== ENCOUNTER 2024-02-12 14:01 | Outpatient (AMB) | payer OTHER, SELFPAY ==
--- NOTE | 2024-02-12 14:03 | MHC.OFFVIS ---
Intake Vital Signs 02/12/24 14:06 Height 4 ft 11 in Weight 146 lb 2.664 oz BMI 29.5 BP 140/80 H Blood Pressure Location Rt brachial Position Sitting Pulse 65 Pulse Source Pulse Oximeter Pulse Oximetry (%) 90 L Oxygen Delivery Method Room Air Intake Visit Reasons: Joint pain/PCP REF/CM Intake Note: Patient last seen 11/14/23 for joint pain to return as needed, presents today with complaints of pain bl arms Last visit sulfasalazine was offered but pt declined. National Sales Required: Yes National Sales Name: Daughter- form signed Information Interpreted: clinical only Accompanied by: Daughter Allergies codeine [CODEINE] Allergy (Severe, Verified 02/12/24 14:17) VOMITING buprenorphine Allergy (Intermediate, Verified 02/12/24 14:17) dizziness,nausea, vomiting lisinopril Allergy (Intermediate, Verified 02/12/24 14:17) cough naproxen [Naprosyn] Allergy (Intermediate, Verified 02/12/24 14:17) vomitting Penicillins [PENICILLINS] Allergy (Intermediate, Verified 02/12/24 14:17) RASH Medication List - Last Reconciled 02/12/24 by Maria L Mckeon MD acetaminophen ER (Tylenol 8 Hour) 650 mg PO Q8H PRN amitriptyline 25 mg PO BEDTIME blood pressure monitor Automatic, Digital. Dx: I10. Daily As directed, 999 days/lifetime blood sugar diagnostic (FreeStyle Lite Strips) USE NEEDED TWICE A DAY blood-glucose meter (FreeStyle Lite Meter kit) for daily and prn blood sugars cane Daily As directed, 999days/Lifetime. cetirizine 10 mg PO DAILY clonazepam 1 mg PO DAILY PRN 30 days diclofenac sodium 1% (Arthritis Pain (diclofenac)) 2 grams topical QID 30 days famotidine 40 mg PO BEDTIME 30 days fluticasone propionate 50 mcg/actuation 1 spray intranasal DAILY fluticasone propionate 220 mcg/actuation (Flovent HFA) 2 puffs inhalation BID 30 days lancets (FreeStyle Lancets) 1 gauge topical BID PRN losartan 25 mg PO BID olopatadine 0.1% (Pataday Twice Daily Relief) 1 drp ophthalmic (eye) BID 1 month ondansetron HCl mg PO pantoprazole 40 mg PO DAILY phentermine 30 mg PO QAM sertraline 200 mg (2 x 100 mg) PO QAM 90 days zolpidem 10 mg PO BEDTIME PRN HPI HPI Comments History of Present Illness Details Patient returns for follow-up. She states that she continues to have intermittent episodes of pain in her arms, shoulders, elbows, the pain comes on abruptly without any precipitating factor or overuse it can last for a few hours or a few days. She takes Tylenol which provides little relief, every once in a while she would use Advil which does help. She was prescribed Voltaren gel by her PCP which provides little relief. She gets intermittent swelling of her hands, the swelling usually lasts about an hour and half in the morning. No significant morning stiffness of her hands PFSH Medical History Abnormal Pap smear of cervix HTN, goal below 130/80 History of depression Asthma Surgical History History of trigger finger History of bilateral carpal tunnel release History of sleeve gastrectomy History of cholecystectomy Family History Father No problems noted. Mother Stroke Heart attack Uterine cancer Smoker Lung cancer Sister S/P KIERAN-BSO (total abdominal hysterectomy and bilateral salpingo-oophorectomy) Other Mental health disorder Substance use disorder Social History Household Members Other:: daughter Housing: Apartment Alcohol intake: never Patient Tobacco Use Status: Former Tobacco user Tobacco use type: Cigarette e-Cigarette/Vaping Use: Never Used service: No Current occupational status: disabled Sexual orientation: Straight/Heterosexual Gender identity: Female Cognitive needs: No Hearing needs: No Vision needs: Yes Female Reproductive History Menstrual Age of Menarche: 14 Review of Systems Musc Reports arthralgias, Reports limited range of motion and Reports stiffness Physical Exam Vital Signs: Oxygen Delivery Method Room Air 02/12/24 14:06 Const General: cooperative, healthy appearing and comfortable Nutritional Appearance: overweight Orientation/consciousness: patient oriented x3 Limitations: no limitations HEENT Head: Yes normocephalic and Yes atraumatic Mouth: moist mucous membranes Resp Effort & Inspection: normal respiratory effort and able to speak in complete sentences Skin General skin exam: no rashes or lesions noted Neuro General: patient oriented x3 Extrem Other: Normal range of motion of shoulders Positive empty can test on the right Positive lift-off test on the right Right elbow tenderness to palpation and pain with flexion and extension Negative resisted wrist extension test bilaterally no tenderness at the common extensor origin Right wrist tenderness and pain with flexion and extension Left wrist tenderness and pain with flexion and extension Left 4th flexor tendon tenderness Left knee crepitus and pain with flexion and extension Results Reviewed Results Reviewed: Right shoulder x-ray from 02/2023 XR/XR shoulder RT min 2V IMPRESSION: Right shoulder calcific tendinitis. Appearance is improved since study of 06/26/2017. Assessment & Plan Assessment & Plan (1) Seronegative arthritis: Code(s): M13.80 - Other specified arthritis, unspecified site Plan: 58-year-old female presents for for follow-up.? Previously patient was evaluated for recurrent episodes of finger dactylitis, of note patient had trigger finger release for 3 fingers on the left hand and 1 finger right hand.? Last visit I suspected a form of seronegative arthritis.? I offered patient DMARDs such as sulfasalazine.? Patient wanted to think about it.? She returns with intermittent episodes of bilateral shoulder and elbow pain. Today patient is agreeable to start DMARDs.? Discussed risks and benefits of sulfasalazine.? Patient agreed to proceed.? Start sulfasalazine 500 mg Twice daily and uptitrated to 1000 mg Twice daily? Labs today and before next visit in 2 months (2) On sulfasalazine therapy: Code(s): Z79.899 - Other retirement (current) drug therapy Plan: Monitor safety labs Plan I spent 26 minutes reviewing patient's chart, evaluating patient, ordering diagnostic workup, counseling patient and documenting in the chart Orders: Orders Complete Blood Count Auto Diff 2 Months Z79.899 - Other motion pictures cartoonist (current) drug therapy Erythrocyte Sedimentation Rate 2 Months Z79.899 - Other motion pictures cartoonist (current) drug therapy Complete Blood Count Auto Diff Today Z79.899 - Other retirement (current) drug therapy C Reactive Protein Today Z79.899 - Other retirement (current) drug therapy Comprehensive Met. Panel 2 Months Z79.899 - Other motion pictures cartoonist (current) drug therapy C Reactive Protein 2 Months Z79.899 - Other retirement (current) drug therapy Comprehensive Met. Panel Today Z79.899 - Other retirement (current) drug therapy Erythrocyte Sedimentation Rate Today Z79.899 - Other motion pictures cartoonist (current) drug therapy Medications: New sulfasalazine give with food (meal/snack) Take 1 tab twice daily for 1 week then 1 tab in the morning 2 tabs at night for 1 week then 2 tabs Twice daily 203 tabs 0RF Coding Level of Care Code Est Pt Level 4 (10850) Diagnoses Seronegative arthritis M13.80 On sulfasalazine therapy Z79.895
[2024-02-12 14:06] VITALS: BP 140/80; PULSE 65; O2SAT 90; BMI 29.5
== END 2024-02-12 14:30 | disposition home or self-care (01) ==
PROVIDERS: PCP Nurse Practitioner Family; Visit Provider Student in an Organized Health Care Education/Training Program
DX: M13.80 Other specified arthritis, unspecified site (principal); Z79.899 Other long term (current) drug therapy
CPT/HCPCS: 99214

== ENCOUNTER → 2024-02-12 14:01 | Outpatient (BNVA) | payer OTHER, SELFPAY | PROVIDERS: PCP Nurse Practitioner Family; Visit Provider Student in an Organized Health Care Education/Training Program | DX: M13.80 Other specified arthritis, unspecified site (principal); Z79.899 Other long term (current) drug therapy | CPT/HCPCS: 99212 ==

== ENCOUNTER 2024-03-28 13:43 | Outpatient (AMB) | payer OTHER, SELFPAY ==
--- NOTE | 2024-03-28 14:16 | MHC.OFFVIS ---
Vital Signs 03/28/24 14:19 Height 4 ft 11 in Weight 147 lb 11.355 oz BMI 29.8 BP 123/79 Blood Pressure Location Lt brachial Position Sitting Pulse 82 Intake Visit Reasons: Gastroesophageal reflux disease (GERD) Intake Note: Margot presents in the office as a new patient for GERD. CC: She is here today because of her acid reflux - denies any other GI concerns. Cuff Matcher Required: No Allergies codeine [CODEINE] Allergy (Severe, Verified 03/28/24 14:19) VOMITING buprenorphine Allergy (Intermediate, Verified 03/28/24 14:19) dizziness,nausea, vomiting lisinopril Allergy (Intermediate, Verified 03/28/24 14:19) cough naproxen [Naprosyn] Allergy (Intermediate, Verified 03/28/24 14:19) vomitting Penicillins [PENICILLINS] Allergy (Intermediate, Verified 03/28/24 14:19) RASH HPI HPI Gastroesophageal reflux disease (GERD): Details: 58 years old fee male with past medical history of polyarthralgia, ovarian cysts, GERD, depression, hypertension, insomnia, TMJ, allergic rhinitis, diabetes is here today for initial consultation. Patient was sent to us by her PCP. Patient reports that she has been suffering with acid reflux for sometimes. Patient was placed by her PCP on pantoprazole in the morning and famotidine at bedtime. Patient states that she does not feel any difference. Continues to have epigastric pain and postprandial acid reflux. Patient reports that she does not eat late at night. Tries to eat as healthy as possible, occasional food that is fried or from fast food restaurants. Patient denies any nausea or vomiting. Reports occasional dyspepsia without dysphagia or odynophagia. Reports postprandial abdominal bloating as well. Reports that she is moving her bowels well. Denies any melena, hematochezia, unintentional weight loss or ribbon like stools. [facility] Medical History (Updated 03/28/24 @ 20:36 by SHOSHANA Scott-) Abnormal Pap smear of cervix HTN, goal below 130/80 History of depression Asthma Surgical History (Updated 03/28/24 @ 14:20 by Sandie Drosey Naveen) History of esophagogastroduodenoscopy (EGD) History of trigger finger History of bilateral carpal tunnel release History of sleeve gastrectomy History of cholecystectomy Family History Father No problems noted. Mother Stroke Heart attack Uterine cancer Smoker Lung cancer Sister S/P KIERAN-BSO (total abdominal hysterectomy and bilateral salpingo-oophorectomy) Other Mental health disorder Substance use disorder Social History Household Members Other:: daughter Housing: Apartment Alcohol intake: never Patient Tobacco Use Status: Former Tobacco user Tobacco use type: Cigarette e-Cigarette/Vaping Use: Never Used service: No Current occupational status: disabled Sexual orientation: Straight/Heterosexual Gender identity: Female Cognitive needs: No Hearing needs: No Vision needs: Yes Female Reproductive History Menstrual Age of Menarche: 14 Review of Systems Const Denies weight gain and Denies weight loss ENT Reports no additional complaints, Denies dysphagia and Denies odynophagia Card Reports no additional complaints Resp Reports no additional complaints GI Reports abdominal pain (Epigastric), Denies belching, Denies melena, Reports bloating, Denies change in bowel habits, Denies dysphagia, Denies excessive flatus, Denies dyspepsia, Reports heartburn, Denies diarrhea, Denies loose stools, Denies nausea, Denies odynophagia and Denies vomiting Reports no additional complaints Musc Reports no additional complaints Neuro Reports no additional complaints Psych Reports no additional complaints Endo Reports no additional complaints Physical Exam Vital Signs: Last Vital Signs Pulse 82 03/28/24 14:19 BP 123/79 03/28/24 14:19 BMI result Body Mass Index 29.8 Const General: healthy appearing and no acute distress Nutritional Appearance: obese Orientation/consciousness: patient oriented x3 Resp Effort & Inspection: normal respiratory effort, able to speak in complete sentences, no tracheal deviation and symmetric chest movement Auscultation: clear to auscultation bilaterally Cardio Rate: regular rate GI Inspection: Yes normal to inspection, No distended and Yes obesity Palpation (GI): Soft to palpation, not firm, nontender and No hepatosplenomegaly present Auscultation: normal bowel sounds General: Yes no CVA tenderness Back/Spine/Pelvis Back: no CVA tenderness Skin General skin exam: elasticity normal, turgor normal and dry skin Neuro General: patient oriented x3 Psych Appearance: grossly normal Mental Status: mental status grossly normal Assessment & Plan Assessment & Plan (1) GERD (gastroesophageal reflux disease): Code(s): K21.9 - Gastro-esophageal reflux disease without esophagitis Category: Medical Qualifiers: Esophagitis presence: esophagitis presence not specified Qualified Code(s): K21.9 - Gastro-esophageal reflux disease without esophagitis (2) Postprandial abdominal bloating: Code(s): R14.0 - Abdominal distension (gaseous) (3) Postprandial epigastric pain: Code(s): R10.13 - Epigastric pain Plan Patient describes her symptoms for quite some time. Pantoprazole and famotidine are not effective. Patient will start taking Nexium. Patient states that she took omeprazole in the past and was also not helpful. Patient remembers that Nexium helped in the past. Will stop famotidine and start her taking sucralfate at bedtime. Patient does report epigastric burning postprandially. Patient was encouraged to avoid dietary triggers and late night snacking. Staying upright for minimum 3 hours after meals discussed with patient. Will check for H pylori, lipase. Will check vitamin-D, B12 and folate levels. She will return in 2-3 months, sooner on as needed basis. She is agreeable to this plan and verbalizes understanding of instructions. She was given the opportunity to ask questions and all questions answered. Thank you for allowing me to participate in her care Orders: Orders H pylori Ag Stool Today K21.9 - Gastro-esophageal reflux disease without esophagitis Vitamin D 25-OH (D2 and D3) Today E55.9 - Vitamin D deficiency, unspecified Vitamin B12 and Folate Today R19.7 - Diarrhea, unspecified Lipase Today R10.9 - Unspecified abdominal pain Medications: New esomeprazole magnesium (Nexium) 40 mg PO DAILY 30 caps 5RF K21.9 - Gastro-esophageal reflux disease without esophagitis sucralfate 1 g PO BEDTIME 30 tabs 4RF R19.7 - Diarrhea, unspecified Discontinued pantoprazole Discontinued Reason: Doctor's Order 40 mg PO DAILY 90 tabs 1RF famotidine Discontinued Reason: Doctor's Order 40 mg PO BEDTIME 90 days 90 tabs 2RF Coding Level of Care Code New Pt Level 4 (20495) Diagnoses Gastroesophageal reflux disease, unspecified whether esophagitis present K21.9 Esophagitis presence: esophagitis presence not specified Postprandial abdominal bloating R14.0 Postprandial epigastric pain R10.13 Time Spent (min) 45 Comment 30 minutes spent with patient and additional 15 minutes spent reviewing her records
[2024-03-28 14:19] VITALS: BP 123/79; PULSE 82; BMI 29.8
== END 2024-03-28 15:10 | disposition home or self-care (01) ==
PROVIDERS: PCP Nurse Practitioner Family; Visit Provider Nurse Practitioner Family
DX: K21.9 Gastro-esophageal reflux disease without esophagitis (principal); R14.0 Abdominal distension (gaseous); R10.13 Epigastric pain
CPT/HCPCS: 99204

== ENCOUNTER → 2024-03-28 13:43 | Outpatient (BNVA) | payer OTHER, SELFPAY | PROVIDERS: PCP Nurse Practitioner Family; Visit Provider Nurse Practitioner Family | DX: K21.9 Gastro-esophageal reflux disease without esophagitis (principal); R10.13 Epigastric pain; R14.0 Abdominal distension (gaseous); Z90.49 Acquired absence of other specified parts of digestive tract; Z90.3 Acquired absence of stomach [part of] | CPT/HCPCS: 99202 ==

== ENCOUNTER 2024-04-07 19:36 | Emergency (ER) | payer OTHER, SELFPAY ==
[2024-04-07] VITALS (7 sets, daily range): BP systolic 141–175; BP diastolic 78–96; PULSE 72–89; RESP 18–24; TEMP 36.6–36.7; O2SAT 98–99; BMI 30.3
--- NOTE | 2024-04-07 19:41 | ED_ITS ---
HPI - General Adult General Chief complaint: Allergic Reaction Stated complaint: ?Allergic reaction/ swelling to lips Time Seen by Provider: 04/07/24 20:42 Source: patient Mode of arrival: ambulatory Limitations: no limitations History of Present Illness ED Provider: tierra MCCANN narrative: Patient has been complaining of hives off and on for last few months does not know any allergic agent today noticed swelling spreading to the lips in the face along with hives no difficulty in breathing no difficulty in swallowing not on any Eugenio inhibitor comes with angioedema of the lips Related Data Home Medications ?Medication ?Instructions ?Recorded ?Confirmed ondansetron HCl 4 mg tablet mg PO 12/06/22 02/12/24 zolpidem 10 mg tablet 10 mg PO BEDTIME PRN 12/06/22 02/12/24 lancets 28 gauge (FreeStyle 1 gauge topical BID PRN 02/05/23 02/12/24 Lancets) hypoglycemia amitriptyline 25 mg tablet 25 mg PO BEDTIME 02/12/24 02/12/24 phentermine 30 mg capsule 15 mg PO QAM 03/28/24 Previous Rx's ?Medication ?Instructions ?Recorded cane #1 ea 04/07/21 blood pressure monitor #1 ea 07/27/22 blood-glucose meter (FreeStyle #1 ea 02/05/23 Lite Meter kit) losartan 25 mg tablet 25 mg PO BID #60 tabs 02/05/23 fluticasone propionate 220 2 puff inhalation BID 30 days #12 03/05/23 mcg/actuation HFA aerosol inhaler grams (Flovent HFA) blood sugar diagnostic (FreeStyle #50 ea 06/26/23 Lite Strips) clonazepam 1 mg tablet 1 mg PO DAILY PRN anxiety 30 days 08/10/23 #30 tabs cetirizine 10 mg tablet 10 mg PO DAILY #30 tabs 09/19/23 fluticasone propionate 50 1 spray intranasal DAILY #16 grams 09/19/23 mcg/actuation nasal spray,suspension olopatadine 0.1 % eye drops 1 drp ophthalmic (eye) BID 1 month 12/04/23 (Pataday Twice Daily Relief) #5 mL sertraline 100 mg tablet 200 mg (2 x 100 mg) PO QAM 90 days 01/14/24 #180 tabs acetaminophen 650 mg 650 mg PO Q8H PRN pain #90 tabs 03/03/24 tablet,extended release (Tylenol 8 Hour) esomeprazole magnesium 40 mg 40 mg PO DAILY #30 caps 03/28/24 capsule,delayed release (Nexium) sucralfate 1 gram tablet 1 g PO BEDTIME #30 tabs 03/28/24 diclofenac sodium 1 % topical gel 2 g topical QID 30 days #100 grams 04/02/24 (Arthritis Pain (diclofenac)) diphenhydramine HCl 25 mg capsule 25 mg PO TID PRN allergic reaction 04/07/24 (Benadryl) #30 caps prednisone 20 mg tablet 40 mg (2 x 20 mg) PO DAILY #10 tabs 04/07/24 Allergies Allergy/AdvReac Type Severity Reaction Status Date / Time codeine [CODEINE] Allergy Severe VOMITING Verified 04/07/24 19:46 buprenorphine Allergy Intermediate dizziness,nausea, Verified 03/28/24 14:19 vomiting lisinopril Allergy Intermediate cough Verified 03/28/24 14:19 naproxen [Naprosyn] Allergy Intermediate vomitting Verified 03/28/24 14:19 Penicillins [PENICILLINS] Allergy Intermediate RASH Verified 03/28/24 14:19 Review of Systems 2 Review of Systems: Yes all other systems are reviewed and are negative [facility] Past Medical History Medical History Abnormal Pap smear of cervix HTN, goal below 130/80 History of depression Asthma Surgical History History of esophagogastroduodenoscopy (EGD) History of trigger finger History of bilateral carpal tunnel release History of sleeve gastrectomy History of cholecystectomy Family History Family History Father No problems noted. Mother Stroke Heart attack Uterine cancer Smoker Lung cancer Sister S/P KIERAN-BSO (total abdominal hysterectomy and bilateral salpingo- oophorectomy) Other Mental health disorder Substance use disorder Social History Social History Household Members Other:: daughter Housing: Apartment Alcohol intake: never Patient Tobacco Use Status: Former Tobacco user Tobacco use type: Cigarette e-Cigarette/Vaping Use: Never Used Advance Directives: No Advance Directives Information Provided: No Do you have a plan to hurt others: No Plan service: No Current occupational status: disabled Sexual orientation: Straight/Heterosexual Gender identity: Female Cognitive needs: No Hearing needs: No Vision needs: Yes Physical Exam ED Vital Signs: Vital Signs - 24 hr 04/07/24 19:41 04/07/24 20:47 04/07/24 20:52 Temperature 98.1 F 97.9 F Pulse Rate 82 80 75 Respiratory Rate 19 24 H Blood Pressure 175/96 H 169/93 H 169/83 H Pulse Oximetry 98 98 Oxygen Delivery Method Room Air Room Air 04/07/24 21:00 04/07/24 21:18 04/07/24 22:10 Temperature 98.0 F Pulse Rate 72 74 89 Respiratory Rate 18 18 18 Blood Pressure 172/94 H 148/78 H 153/81 H Pulse Oximetry 98 98 98 Oxygen Delivery Method Room Air Room Air Room Air 04/07/24 23:38 Temperature 98.1 F Pulse Rate 82 Respiratory Rate 18 Blood Pressure 141/91 H Pulse Oximetry 99 Oxygen Delivery Method Room Air BMI result Body Mass Index 30.3 Appearance: Alert. Oriented X3. No acute distress. ENT: Pharynx normal. Oral Mucosa moist uvula normal significant swelling of the both upper and lower lips tongue is normal no stridor Neck: Normal inspection. Neck supple. CVS: Normal heart rate and rhythm. Pulses normal. Respiratory: No respiratory distress. Equal air entry bilateral, no wheezing/rales/rhonchi Abdomen: Soft and nontender. Bowel sounds are present, Skin: Skin warm and dry. Normal skin color. Normal skin turgor. Extremities: No lower extremity edema. No calf tenderness Neuro: Oriented X 3. Course Course Course Narrative: This is a rapid medical exam performed by Lyndsey Burch NP: Additional HPI, ROS, PE not included below will be deferred to primary provider. Patient is a 58-year-old [place] Islander speaking female presenting to the ED with complaint of upper and lower lip swelling since this morning. Family also reports she has been having hives to her legs for the past month. She denies abdominal pain, nausea, vomiting. Denies shortness of breath. Angioedema to upper and lower lips noted in triage as well as swelling to face. She denies any dental pain. Not on any BP medications, no other new medications. No uvula edema, lungs CTA throughout. Did not take any benadryl or other OTC medications at home. Plan: benadryl and prednisone given in triage Medications Administered Discontinued Medications Generic Name Dose Route Start Last Admin Trade Name Freq PRN Reason Stop Dose Admin Diphenhydramine HCl 25 mg 04/07/24 19:47 04/07/24 19:50 Diphenhydramine Hcl 25 Mg Capsule PO 04/07/24 19:48 25 mg ONCE ONE Administration Diphenhydramine HCl 25 mg 04/07/24 20:45 04/07/24 20:52 Diphenhydramine Hcl 50 Mg/Ml Vial IVPUSH 04/07/24 20:46 25 mg ONCE ONE Administration Epinephrine 0.3 mg 04/07/24 20:45 04/07/24 20:52 Epinephrine 1 Mg/Ml Vial IM 04/07/24 20:46 0.3 mg STAT STA Administration Famotidine 20 mg 04/07/24 20:45 04/07/24 20:52 Famotidine/Pf 20 Mg/2 Ml Vial IVPUSH 04/07/24 20:46 20 mg ONCE ONE Administration Prednisone 50 mg 04/07/24 19:47 04/07/24 19:50 Prednisone 10 Mg Tablet PO 04/07/24 19:48 50 mg ONCE ONE Administration Medical Decision Making Medical Decision Making [facility] Narrative: Patient has significant facial swelling secondary to allergic reaction of unknown agent. Received Epi IV steroids and H2 blockers patient felt much better after protocol patient will be following with allergic specialist Lab Data 04/07/24 20:04 04/07/24 20:04 Labs: Lab Results 04/07/24 Range/Units 20:04 WBC 10.0 (4.8-10.8) X10*3/uL RBC 4.61 (4.20-5.50) X10*6/uL Hgb 13.4 (12.0-16.0) g/dl Hct 39.6 (37.0-47.0) % MCV 85.9 (80.0-98.0) fL MCH 29.1 (27.0-33.0) pg MCHC 33.8 (31.0-35.0) g/dl RDW 13.8 (11.0-16.0) % Plt Count 323 (160-400) X10*3/uL MPV 9.2 L (9.4-12.3) fL Immature Gran % (Auto) 0.3 (0.0-0.4) % Neut % (Auto) 62.1 (45-73) % Lymph % (Auto) 26.7 (20-40) % Edwards % (Auto) 8.6 (2-11) % Eos % (Auto) 1.7 (0-4) % Baso % (Auto) 0.6 (0-2) % Lymph # (Auto) 2.7 (1.2-4.9) X10*3/uL Edwards # (Auto) 0.9 (0.1-1.2) X10*3/uL Eos # (Auto) 0.2 (0.0-0.4) X10*3/uL Baso # (Auto) 0.1 (0.0-0.2) X10*3/uL Abs Immat Gran (auto) 0.03 (0.00-0.03) X10*3/uL Absolute Neuts (auto) 6.2 (2.0-8.3) x10*3/uL Absolute Nucleated RBC 0.000 (0.0-0.012) X10*3/uL Nucleated RBC % (auto) 0.0 (0.0-0.2) /100WBC ESR 10 (0-20) MM/HR Hold Purple Top SEE NOTE Sodium 140 (135-145) mmol/L Potassium 3.9 (3.3-5.1) mmol/L Chloride 104 (96-108) mmol/L Carbon Dioxide 23 (22-29) mmol/L Anion Gap 17 (12-20) BUN 22 H (9-16) mg/dL Creatinine 1.19 (0.5-1.4) mg/dL Estim Creat Clear Calc 44.3 Estimated GFR 47 Random Glucose 149 H (60-115) mg/dL Calcium 9.4 (8.4-10.2) mg/dL Total Bilirubin 0.2 (0.0-1.0) mg/dL AST 16 (5-31) U/L ALT 14 (0-31) U/L Alkaline Phosphatase 83 (39-117) U/L C-Reactive Protein 0.55 H (< or = 0.50) mg/dL Total Protein 7.6 (6.5-8.0) g/dL Albumin 4.1 (3.5-5.0) g/dL Discharge Plan Discharge Clinical Impression: Allergic reaction Patient Disposition: Home, Self-Care Instructions: General Allergic Reaction (ED) Additional Instructions: You have allergic reaction to unknown agents clear etiology not very clear Need to follow up with primary care doctor for further testing Take Benadryl 1-2 tablets every 6 hours as needed for itching Prednisone as prescribed Report to the ER if worsening of the swelling/difficulty in breathing/throat swelling Prescriptions: New prednisone 20 mg tablet 40 mg PO DAILY Qty: 10 0RF diphenhydramine HCl [Benadryl] 25 mg capsule 25 mg PO TID PRN (Reason: allergic reaction) Qty: 30 0RF No Action (DME) FreeStyle Lite Strips Strip See Rx Instructions .ROUTE .COMPLEX Qty: 50 1RF Dose Instruction: USE NEEDED TWICE A DAY Rx Instructions: USE NEEDED TWICE A DAY cetirizine 10 mg tablet 10 mg PO DAILY Qty: 30 8RF fluticasone propionate 50 mcg/actuation spray,suspension 1 spray intranasal DAILY Qty: 16 8RF olopatadine [Pataday Twice Daily Relief] 0.1 % drops 1 drp ophthalmic (eye) BID 30 Days Qty: 5 6RF Rx Instructions: separate doses by at least 6-8 hours acetaminophen [Tylenol 8 Hour] 650 mg tablet extended release 650 mg PO Q8H PRN (Reason: pain) Qty: 90 0RF diclofenac sodium [Arthritis Pain (diclofenac)] 1 % gel 2 g topical QID 30 Days Qty: 100 0RF Rx Instructions: apply to single elbow, wrist or hand; for hand includes palm/fingers/back of hand (DME) cane Device See Rx Instructions .ROUTE .MEDSUPPLY Qty: 1 0RF Rx Instructions: Daily As directed, 999days/Lifetime. (DME) blood pressure monitor Kit See Rx Instructions .ROUTE .MEDSUPPLY Qty: 1 0RF Rx Instructions: Automatic, Digital. Dx: I10. Daily As directed, 999 days/lifetime fluticasone propionate [Flovent HFA] 220 mcg/actuation HFA aerosol inhaler 2 puff inhalation BID 30 Days Qty: 12 8RF (DME) blood-glucose meter [FreeStyle Lite Meter] Kit See Rx Instructions .ROUTE .MEDSUPPLY Qty: 1 0RF Rx Instructions: for daily and prn blood sugars lancets [FreeStyle Lancets] 28 gauge misc 1 gauge topical BID PRN (Reason: hypoglycemia) losartan 25 mg tablet 25 mg PO BID Qty: 60 8RF clonazepam 1 mg tablet 1 mg PO DAILY PRN (Reason: anxiety) 30 Days Qty: 30 0RF sertraline 100 mg tablet 200 mg PO QAM 90 Days Qty: 180 8RF zolpidem 10 mg tablet 10 mg PO BEDTIME PRN ondansetron HCl 4 mg tablet PO esomeprazole magnesium [Nexium] 40 mg capsule,delayed release(DR/EC) 40 mg PO DAILY Qty: 30 5RF sucralfate 1 gram tablet 1 g PO BEDTIME Qty: 30 4RF amitriptyline 25 mg tablet 25 mg PO BEDTIME phentermine 30 mg capsule 15 mg PO QAM Print Language: [place] Islander
[2024-04-07] MEDS: predniSONE 10 MG TABLET 50 MG PO (19:50)
[2024-04-07] MEDS: diphenhydrAMINE HCL 25 MG CAPSULE PO (19:50)
[2024-04-07 20:08] LABS: MANUAL DIFF FLAG NO
[2024-04-07 20:13] LABS: Basophils Absolute Auto 0.1 X10*3/uL (0.0-0.2); Basophils Percent Auto 0.6 % (0-2); Eosinophils Absolute Auto 0.2 X10*3/uL (0.0-0.4); Eosinophils Percent Auto 1.7 % (0-4); Hematocrit 39.6 % (37.0-47.0); Hemoglobin 13.4 g/dl (12.0-16.0); Imm Gran Abs Auto 0.03 X10*3/uL (0.00-0.03); Imm Gran Pct Auto 0.3 % (0.0-0.4); Lymphocytes Absolute Auto 2.7 X10*3/uL (1.2-4.9); Lymphocytes Percent Auto 26.7 % (20-40); Mean Corpuscular HGB Conc 33.8 g/dl (31.0-35.0); Mean Corpuscular Hemoglobin 29.1 pg (27.0-33.0); Mean Corpuscular Volume 85.9 fL (80.0-98.0); Mean Platelet Volume 9.2 fL (9.4-12.3); Monocytes Absolute Auto 0.9 X10*3/uL (0.1-1.2); Monocytes Percent Auto 8.6 % (2-11); Neutrophils Absolute Auto 6.2 x10*3/uL (2.0-8.3); Neutrophils Percent Auto 62.1 % (45-73); Platelet Count 323 X10*3/uL (160-400); Red Blood Count 4.61 X10*6/uL (4.20-5.50); Red Cell Distribution Width 13.8 % (11.0-16.0)
[2024-04-07 20:32] LABS: Alanine Aminotransferase 14 U/L (0-31); Albumin Level 4.1 g/dL (3.5-5.0); Alkaline Phosphatase 83 U/L (39-117); Anion Gap 17 (12-20); Aspartate Amino Transferase 16 U/L (5-31); Bilirubin Total 0.2 mg/dL (0.0-1.0); Blood Urea Nitrogen 22 mg/dL (9-16); C Reactive Protein 0.55 mg/dL (< or = 0.50); Calcium 9.4 mg/dL (8.4-10.2); Carbon Dioxide 23 mmol/L (22-29); Chloride 104 mmol/L (96-108); Creatinine Clr Calc Pharmacy 44.3; Estimated Glomerular Filt Rate 47; Glucose Random 149 mg/dL (60-115); Potassium 3.9 mmol/L (3.3-5.1); Sodium 140 mmol/L (135-145); Total Protein 7.6 g/dL (6.5-8.0)
--- NOTE | 2024-04-07 20:48 | MHC.EDTECH ---
Patient came in from the waiting room,changed into hospital attire,vitals taken and placed on the lunchroom monitor,family at bedside and call sandra in reach
[2024-04-07] MEDS: diphenhydrAMINE HCL 50 MG/ML VIAL 25 MG IVPUSH (20:52)
[2024-04-07] MEDS: EPINEPHrine 1 MG/ML VIAL 0.3 MG IM (20:52)
[2024-04-07] MEDS: Famotidine/PF 20 MG/2 ML VIAL IVPUSH (20:52)
[2024-04-07 20:57] LABS: Erythrocyte Sedimentation Rate 10 MM/HR (0-20)
--- NOTE | 2024-04-07 23:39 | MHC.EDTECH ---
Hourly rounds and vitals completed,patient is waiting to be discharged at this time.
[2024-04-08 00:21] VITALS: BP 141/92; PULSE 82; RESP 18; TEMP 36.7; O2SAT 99
== END 2024-04-08 02:22 | disposition home or self-care (01) ==
PROVIDERS: Registered Nurse Emergency; Emergency Provider Internal Medicine
DX: T78.40XA Allergy, unspecified, initial encounter (principal); X58.XXXA Exposure to other specified factors, initial encounter; I10 Essential (primary) hypertension; J45.909 Unspecified asthma, uncomplicated
CPT/HCPCS: 36415; 80053; 85025; 85652; 86140; 96372; 96374; 96375; 99284; J0171; J1200

== ENCOUNTER 2024-04-11 08:55 | Outpatient (REF) | payer OTHER, SELFPAY ==
[2024-04-11 10:19] LABS: MANUAL DIFF FLAG NO
[2024-04-11 10:33] LABS: Basophils Absolute Auto 0.1 X10*3/uL (0.0-0.2); Basophils Percent Auto 0.8 % (0-2); Eosinophils Absolute Auto 0.2 X10*3/uL (0.0-0.4); Eosinophils Percent Auto 2.2 % (0-4); Hematocrit 42.3 % (37.0-47.0); Imm Gran Abs Auto 0.02 X10*3/uL (0.00-0.03); Imm Gran Pct Auto 0.3 % (0.0-0.4); Lymphocytes Absolute Auto 2.1 X10*3/uL (1.2-4.9); Lymphocytes Percent Auto 28.6 % (20-40); Mean Corpuscular HGB Conc 33.1 g/dl (31.0-35.0); Mean Corpuscular Hemoglobin 28.3 pg (27.0-33.0); Mean Corpuscular Volume 85.6 fL (80.0-98.0); Mean Platelet Volume 9.6 fL (9.4-12.3); Monocytes Absolute Auto 0.7 X10*3/uL (0.1-1.2); Monocytes Percent Auto 8.8 % (2-11); Neutrophils Absolute Auto 4.4 x10*3/uL (2.0-8.3); Neutrophils Percent Auto 59.3 % (45-73); Platelet Count 347 X10*3/uL (160-400); Red Blood Count 4.94 X10*6/uL (4.20-5.50); Red Cell Distribution Width 13.6 % (11.0-16.0); White Blood Count 7.4 X10*3/uL (4.8-10.8)
[2024-04-11 10:46] LABS: Alanine Aminotransferase 16 U/L (0-31); Albumin Level 4.2 g/dL (3.5-5.0); Alkaline Phosphatase 74 U/L (39-117); Anion Gap 14 (12-20); Aspartate Amino Transferase 17 U/L (5-31); Bilirubin Total 0.3 mg/dL (0.0-1.0); Blood Urea Nitrogen 19 mg/dL (9-16); C Reactive Protein 0.28 mg/dL (< or = 0.50); Calcium 9.7 mg/dL (8.4-10.2); Carbon Dioxide 26 mmol/L (22-29); Chloride 103 mmol/L (96-108); Estimated Glomerular Filt Rate > 60; Glucose Random 90 mg/dL (60-115); Lipase 33 U/L (8-78); Potassium 3.8 mmol/L (3.3-5.1); Sodium 139 mmol/L (135-145); Total Protein 7.8 g/dL (6.5-8.0)
[2024-04-11 11:19] LABS: Folate 11.2 ng/mL (> or = 4.0); Vitamin B12 269 pg/mL (200-900)
[2024-04-11 11:24] LABS: Erythrocyte Sedimentation Rate 13 MM/HR (0-20)
[2024-04-16 13:53] LABS: Vitamin D 25-OH, D2 <4 ng/mL; Vitamin D 25-OH, D3 24 ng/mL; Vitamin D 25-OH, Total 24 ng/mL (30-100)
== END 2024-04-11 08:56 | disposition home or self-care (01) ==
LOC: HO.HMGCLDS 08:55
PROVIDERS: Nurse Practitioner Family; PCP Family Medicine; Referring Provider Student in an Organized Health Care Education/Training Program; Visit Provider Family Medicine
DX: E55.9 Vitamin D deficiency, unspecified (principal); R19.7 Diarrhea, unspecified; R10.9 Unspecified abdominal pain; Z79.899 Other long term (current) drug therapy
CPT/HCPCS: 36415; 80053; 82306; 82607; 82746; 83690; 85025; 85652; 86140

== ENCOUNTER 2024-04-14 09:21 | Outpatient (AMB) | payer OTHER, SELFPAY ==
[2024-04-14 09:37] VITALS: BP 140/68; PULSE 81; O2SAT 97; BMI 30.8
--- NOTE | 2024-04-14 09:37 | MHC.PC.OV ---
Vital Signs 04/14/24 09:37 Height 4 ft 9.75 in Weight 146 lb BMI 30.8 BP 140/68 H Blood Pressure Location Lt brachial Position Sitting Pulse 81 Pulse Source Pulse Oximeter Pulse Oximetry (%) 97 Oxygen Delivery Method Room Air Intake Visit Reasons: f/u chronic conditions Intake Note: Patient is here for follow up chronic conditions. Allergies codeine [CODEINE] Allergy (Severe, Verified 04/14/24 09:41) VOMITING buprenorphine Allergy (Intermediate, Verified 04/14/24 09:41) dizziness,nausea, vomiting lisinopril Allergy (Intermediate, Verified 04/14/24 09:41) cough naproxen [Naprosyn] Allergy (Intermediate, Verified 04/14/24 09:41) vomitting Penicillins [PENICILLINS] Allergy (Intermediate, Verified 04/14/24 09:41) RASH Medication List - Last Reconciled 04/14/24 by Juan Medellin MD acetaminophen ER (Tylenol 8 Hour) 650 mg PO Q8H PRN amitriptyline 25 mg PO BEDTIME blood pressure monitor Automatic, Digital. Dx: I10. Daily As directed, 999 days/lifetime blood sugar diagnostic (FreeStyle Lite Strips) USE NEEDED TWICE A DAY blood-glucose meter (FreeStyle Lite Meter kit) for daily and prn blood sugars cane Daily As directed, 999days/Lifetime. cetirizine 10 mg PO DAILY clonazepam 1 mg PO DAILY PRN 30 days diclofenac sodium 1% (Arthritis Pain (diclofenac)) 2 grams topical QID 30 days diphenhydramine HCl (Benadryl) 25 mg PO TID PRN esomeprazole magnesium (Nexium) 40 mg PO DAILY fluticasone propionate 50 mcg/actuation 1 spray intranasal DAILY fluticasone propionate 220 mcg/actuation (Flovent HFA) 2 puffs inhalation BID 30 days lancets (FreeStyle Lancets) 1 gauge topical BID PRN losartan 25 mg PO BID olopatadine 0.1% (Pataday Twice Daily Relief) 1 drp ophthalmic (eye) BID 1 month ondansetron HCl mg PO phentermine 15 mg PO QAM sertraline 200 mg (2 x 100 mg) PO QAM 90 days sucralfate 1 g PO BEDTIME zolpidem 10 mg PO BEDTIME PRN Tobacco use date assessed: 04/14/24 Dental Screening Dental Screen Date: 01/14/24 HPI f/u chronic conditions HPI Details 58 y/o female presents to f/u chronic conditions. Last A1c 01/14/24 6.1% - diet controlled diabetes. A1c today 04/14/24 is Blood pressure today 140/68. She is prescribed losartan 25mg b.i.d. She states she is not on any blood pressure meds. HPI Comments History of Present Illness Details Documentation assistance for Juan Medellin MD, was provided by Michael Bonilla,? Real Estate Transaction Coordinator on 04/14/2024 at 10:10 AM EST. I, Dr. Medellin, have read, observed, and verified documentation. [facility] Medical History Abnormal Pap smear of cervix HTN, goal below 130/80 History of depression Asthma Surgical History History of esophagogastroduodenoscopy (EGD) History of trigger finger History of bilateral carpal tunnel release History of sleeve gastrectomy History of cholecystectomy Family History Father No problems noted. Mother Stroke Heart attack Uterine cancer Smoker Lung cancer Sister S/P KIERAN-BSO (total abdominal hysterectomy and bilateral salpingo-oophorectomy) Other Mental health disorder Substance use disorder Social History Household Members Other:: daughter Housing: Apartment Alcohol intake: never Patient Tobacco Use Status: Former Tobacco user Tobacco use type: Cigarette e-Cigarette/Vaping Use: Never Used service: No Current occupational status: disabled Sexual orientation: Straight/Heterosexual Gender identity: Female Cognitive needs: No Hearing needs: No Vision needs: Yes Female Reproductive History Menstrual Age of Menarche: 14 Questionnaire Thrive Questionnaire Date Thrive assessed: 01/14/24 DICKSON-7 AMB Questionnaire DICKSON-7 Date DICKSON - 7 assessed: 01/14/24 Source: Developed by Drs. Raheel Calix, Yani Vargas, Willie Osorio and colleagues, with an educational janine from [employer]. Review of Systems Const Denies chills, Denies fatigue, Denies fever(s), Denies headache(s) and Denies weakness ENT Denies dizziness and Denies headache(s) Card Denies chest pain, Denies lightheadedness, Denies dyspnea and Denies other (Palpitations) Resp Denies cough, Denies dyspnea, Denies wheezing and Denies other ( shortness of breath) Musc Denies numbness and Denies tingling Neuro Denies dizziness, Denies headache(s), Denies numbness, Denies tingling, Denies paresthesias and Denies weakness Psych Denies anxiety and Denies depression Endo Denies fatigue Aller/Immun Denies wheezing Physical exam (Primary Care) Vital Signs: Last Vital Signs Pulse 81 04/14/24 09:37 BP 140/68 H 04/14/24 09:37 Pulse Ox 97 04/14/24 09:37 Oxygen Delivery Method Room Air 04/14/24 09:37 BMI result Body Mass Index 30.8 Tobacco/Smoking Status: Tobacco use Status Tobacco use date assessed 04/14/24 04/14/24 09:47 Patient Tobacco Use Status Former Tobacco user 04/14/24 09:41 Tobacco use type Cigarette 04/14/24 09:41 e-Cigarette/Vaping Use Never Used 04/14/24 09:41 Thrive Assessment: Date of Thrive Assessment Date Thrive assessed 01/14/24 04/14/24 09:41 Const General: no acute distress and well developed Nutritional Appearance: well nourished Orientation/consciousness: patient oriented x3 HENMT Head: Yes normocephalic and Yes atraumatic Eyes General: appearance normal, both eyes and all related structures Pupils: Equal, round and reactive pupils present EOM: EOMs intact bilaterally Resp Effort & Inspection: normal respiratory effort Auscultation: clear to auscultation bilaterally Cardio Rate: regular rate Rhythm: regular rhythm Heart sounds: S1 normal heart sound present, S2 normal heart sound present, no gallops, no murmurs and no rubs Neuro General: patient oriented x3 and gait normal Cranial nerves: Yes Equal, round and reactive pupils present Psych Affect: normal affect Results AMB Hemoglobin A1c AMB Hemoglobin A1c 6.1 % Last Edit by Zunilda Neal CMA on 04/14/24 10:36 Assessment and Plan Assessment & Plan (1) HTN, goal below 130/80: Code(s): I10 - Essential (primary) hypertension Plan: Blood?pressure?is?consistently?too?high. Goal?is?less?than?130/80 She?says?she?has?not?been?taking?any?medication?for?this Will?start?her?back?on?losartan?25?mg?daily (2) Diet-controlled diabetes mellitus: Code(s): E11.9 - Type 2 diabetes mellitus without complications Plan: A1c?showed?good?control?at?last?check. She?is?diet?controlled-had?a?bariatric?procedure?and?has?not?needed?medications?since A1c:??6.1%.??Good?control.??Goal?is?less?than?7.0% Continue?diabetic?diet (3) Allergic reaction: Code(s): T78.40XA - Allergy, unspecified, initial encounter Plan: Recent?allergic?reaction?with?facial?swelling?and?hives. No difficulty?swallowing?or?breathing Will?give?her?an?EpiPen She?can?take?Benadryl?OTC?50?mg at?onset?of?hives Go?to?ED?if?this?progresses Take?EpiPen?if?any?difficulty?swallowing?or?breathing Referred?to?immunology?for?allergy?test Orders: Orders AMB Hemoglobin A1c Today Z13.9 - Encounter for screening, unspecified Referrals Allergy & Immunology Referral L50.9 - Urticaria, unspecified Medications: New epinephrine (EpiPen 2-Brooks) 0.3 mg (0.3 mL) IM Q4H 30 days PRN 2 ea 2RF anaphylaxis Changed From losartan 25 mg PO BID 60 tabs 8RF I10 - Essential (primary) hypertension To losartan 25 mg PO DAILY 90 days 90 tabs 4RF I10 - Essential (primary) hypertension Refilled blood pressure monitor Automatic, Digital. Dx: I10. Daily As directed, 999 days/lifetime 1 ea 0RF I10 - Essential (primary) hypertension Coding Level of Care Code Est Pt Level 4 (21325) Diagnoses HTN, goal below 130/80 I10 Diet-controlled diabetes mellitus E11.9 Allergic reaction T78.40XA
== END 2024-04-14 10:51 | disposition home or self-care (01) ==
PROVIDERS: PCP Nurse Practitioner Family; Visit Provider Family Medicine
DX: I10 Essential (primary) hypertension (principal); E11.9 Type 2 diabetes mellitus without complications; T78.40XA Allergy, unspecified, initial encounter
CPT/HCPCS: 83036; 99214

== ENCOUNTER 2024-07-08 09:16 | Outpatient (AMB) | payer OTHER, SELFPAY ==
--- NOTE | 2024-07-08 09:33 | A.OFFPC_ITS ---
Vital Signs 07/08/24 09:36 Height 4 ft 11 in Weight 145 lb 4 oz BMI 29.3 BP 110/64 Blood Pressure Location Rt brachial Position Sitting Respiration 16 Pulse 78 Pulse Source Pulse Oximeter Temp 96.8 F Temp Source Tympanic Pulse Oximetry (%) 98 Oxygen Delivery Method Room Air Intake Visit Reasons: Follow-up?diet-controlled?diabetes /?hypertension Intake Note: f/u for DM and HTN Allergies codeine [CODEINE] Allergy (Severe, Verified 07/08/24 09:34) VOMITING buprenorphine Allergy (Intermediate, Verified 07/08/24 09:34) dizziness,nausea, vomiting lisinopril Allergy (Intermediate, Verified 07/08/24 09:34) cough naproxen [Naprosyn] Allergy (Intermediate, Verified 07/08/24 09:34) vomitting Penicillins [PENICILLINS] Allergy (Intermediate, Verified 07/08/24 09:34) RASH Medication List - Last Reconciled 07/08/24 by Juan Medellin MD acetaminophen ER (Tylenol 8 Hour) 650 mg PO Q8H PRN amitriptyline 25 mg PO BEDTIME blood pressure monitor Automatic, Digital. Dx: I10. Daily As directed, 999 days/lifetime blood sugar diagnostic (FreeStyle Lite Strips) USE NEEDED TWICE A DAY blood-glucose meter (FreeStyle Lite Meter kit) for daily and prn blood sugars cane Daily As directed, 999days/Lifetime. cetirizine 10 mg PO DAILY clonazepam 1 mg PO DAILY PRN 30 days diclofenac sodium 1% (Arthritis Pain (diclofenac)) 2 grams topical QID 30 days diphenhydramine HCl (Benadryl) 25 mg PO TID PRN epinephrine (EpiPen 2-Brooks) 0.3 mg (0.3 mL) IM Q4H PRN 30 days esomeprazole magnesium (Nexium) 40 mg PO DAILY fluticasone propionate 50 mcg/actuation 1 spray intranasal DAILY fluticasone propionate 220 mcg/actuation (Flovent HFA) 2 puffs inhalation BID 30 days lancets (FreeStyle Lancets) 1 gauge topical BID PRN losartan 25 mg PO DAILY 90 days olopatadine 0.1% (Pataday Twice Daily Relief) 1 drp ophthalmic (eye) BID 1 month ondansetron HCl mg PO phentermine 15 mg PO QAM sertraline 200 mg (2 x 100 mg) PO QAM 90 days sucralfate 1 g PO BEDTIME zolpidem 10 mg PO BEDTIME PRN Tobacco use date assessed: 04/14/24 Dental Screening Dental Screen Date: 01/14/24 HPI Follow-up?diet-controlled?diabetes /?hypertension HPI Details 58 y/o female presents to f/u diet contr olled diabetes and hypertension. Last A1c 6.1%. Blood pressure today 110/64. She is on losartan 25mg daily. She notes she does not tolerate naproxen for pain due to swelling. Able to tolerate ibuprofen. HPI Comments History of Present Illness Details Documentation assistance for Juan Medellin MD, was provided by Michael Bonilla, Light Equipment Operator on 07/08/2024 at 9:56 AM EST. I, Dr. Medellin, have read, observed, and verified documentation. [facility] Medical History Abnormal Pap smear of cervix HTN, goal below 130/80 History of depression Asthma Surgical History History of esophagogastroduodenoscopy (EGD) History of trigger finger History of bilateral carpal tunnel release History of sleeve gastrectomy History of cholecystectomy Family History Father No problems noted. Mother Stroke Heart attack Uterine cancer Smoker Lung cancer Sister S/P KIERAN-BSO (total abdominal hysterectomy and bilateral salpingo- oophorectomy) Other Mental health disorder Substance use disorder Social History Household Members Other:: daughter Housing: Apartment Alcohol intake: never Patient Tobacco Use Status: Former Tobacco user Tobacco use type: Cigarette e-Cigarette/Vaping Use: Never Used service: No Current occupational status: disabled Sexual orientation: Straight/Heterosexual Gender identity: Female Cognitive needs: No Hearing needs: No Vision needs: Yes Female Reproductive History Menstrual Age of Menarche: 14 Questionnaire Thrive Questionnaire Date Thrive assessed: 01/14/24 DICKSON-7 AMB Questionnaire DICKSON-7 Date DICKSON - 7 assessed: 01/14/24 Source: Developed by Drs. Raheel Calix, Yani Vargas, Willie Osorio and colleagues, with an educational janine from [employer]. Review of Systems Const Denies chills, Denies fatigue, Denies fever(s), Denies headache(s) and Denies weakness ENT Denies dizziness and Denies headache(s) Card Denies dyspnea Resp Denies cough, Denies dyspnea, Denies wheezing and Denies other (shortness of breath) Musc Denies numbness and Denies tingling Neuro Denies dizziness, Denies headache(s), Denies numbness, Denies tingling and Denies weakness Psych Denies anxiety and Denies depression Endo Denies fatigue Aller/Immun Denies wheezing Physical exam (Primary Care) Vital Signs: Last Vital Signs Temp 96.8 F 07/08/24 09:36 Pulse 78 07/08/24 09:36 Resp 16 07/08/24 09:36 BP 110/64 07/08/24 09:36 Pulse Ox 98 07/08/24 09:36 Oxygen Delivery Method Room Air 07/08/24 09:36 BMI result Body Mass Index 29.3 Tobacco/Smoking Status: Tobacco use Status Tobacco use date assessed 04/14/24 07/08/24 09:39 Patient Tobacco Use Status Former Tobacco user 07/08/24 09:39 Tobacco use type Cigarette 07/08/24 09:39 e-Cigarette/Vaping Use Never Used 07/08/24 09:39 Thrive Assessment: Date of Thrive Assessment Date Thrive assessed 01/14/24 07/08/24 09:39 Const General: well developed; No acute distress Nutritional Appearance: well nourished Orientation/consciousness: patient oriented x3 [facility] Head: Yes normocephalic and Yes atraumatic Eyes General: appearance normal, both eyes and all related structures Pupils: Equal, round and reactive pupils present EOM: EOMs intact bilaterally Resp Effort & Inspection: normal respiratory effort Neuro General: patient oriented x3 and gait normal Cranial nerves: Yes Equal, round and reactive pupils present Psych Affect: normal affect Assessment and Plan Assessment & Plan (1) Diet-controlled diabetes mellitus: Code(s): E11.9 - Type 2 diabetes mellitus without complications Plan: A1c?2?months?ago?was?6.1%.??Goal?is?less?than?7.0% Continue?diabetic?diet (2) HTN, goal below 130/80: Code(s): I10 - Essential (primary) hypertension Plan: Blood?pressure?is?controlled.??Goal?is?less?than?140/90 Continue?losartan (3) Low back pain: Code(s): M54.5 - Low back pain Qualifiers: Back pain laterality: bilateral Chronicity: chronic Sciatica laterality: sciatica of right side Sciatica presence: with sciatica Qualified Code(s): M54.41 - Lumbago with sciatica, right side; G89.29 - Other chronic pain Plan: Patient?notes?chronic?low?back?pain Has?not?tried?physical?therapy?and?I?will?order?this She?says?she?tolerates?ibuprofen?so?she?can?use?this?as?well?as?Tylenol Will?give?her?a?short?script?of?cyclobenzaprine?as?well If?not?improving,?would?image?and?consider?referral Orders: Orders PT Evaluation and Treatment Today G89.29 - Other chronic pain, M54.41 - Lumbago with sciatica, right side Medications: New ibuprofen 600 mg PO TID 30 days PRN 90 tabs 0RF pain cyclobenzaprine 10 mg PO Q12H 7 days PRN 14 tabs 0RF muscle spasm Refilled losartan 25 mg PO DAILY 90 days 90 tabs 4RF I10 - Essential (primary) hypertension Coding Level of Care Code Est Pt Level 4 (29239) Diagnoses Diet-controlled diabetes mellitus E11.9 HTN, goal below 130/80 I10 Chronic bilateral low back pain with right-sided sciatica M54.41; G89.29 Back pain laterality: bilateral Chronicity: chronic Sciatica laterality: sciatica of right side Sciatica presence: with sciatica
[2024-07-08 09:36] VITALS: BP 110/64; PULSE 78; RESP 16; TEMP 36; O2SAT 98; BMI 29.3
== END 2024-07-08 09:58 | disposition home or self-care (01) ==
PROVIDERS: PCP Family Medicine; Visit Provider Family Medicine
DX: E11.9 Type 2 diabetes mellitus without complications (principal); I10 Essential (primary) hypertension; M54.41 Lumbago with sciatica, right side; G89.29 Other chronic pain
CPT/HCPCS: 99214

== ENCOUNTER 2024-07-16 11:39 | Outpatient (REF) | payer OTHER, SELFPAY ==
--- NOTE | ~2024-07-16 | MM_ITS ---
EXAMINATION: MM SCREENING DIGITAL BREAST TOMOSYNTHESIS, BILATERAL CLINICAL INFORMATION: Screening. Asymptomatic. COMPARISON: Mammography: Comparison is made with available priors TECHNIQUE: Digital breast mammography with tomosynthesis is performed in both the craniocaudal and mediolateral oblique views along with computer-aided detection (CAD). FINDINGS: There are scattered areas of fibroglandular density (ACR BI-RADS breast composition Category b). There are no significant masses, abnormal calcifications, or other abnormalities. MM/MM tomosynthesis screening BI IMPRESSION: No mammographic evidence of malignancy. ASSESSMENT: BI-RADS BI-RADS 1 - Negative RECOMMENDATION: Routine annual mammography screening. 1 year F/U This examination should not preclude the clinical evaluation of a suspicious palpable abnormality. This patient's information was entered into a reminder system with a target due date for their next mammogram. Electronically signed by: Therese Mohamud DO 08/03/2024 09:35 AM EDT
== END 2024-07-16 11:40 | disposition home or self-care (01) ==
LOC: HO.MAMMO 11:39
PROVIDERS: PCP Family Medicine; Visit Provider Hospitalist
DX: Z12.31 Encounter for screening mammogram for malignant neoplasm of breast (principal)
CPT/HCPCS: 77063; 77067

== ENCOUNTER → 2024-07-16 12:00 | Outpatient (BNV) | payer OTHER, SELFPAY | PROVIDERS: PCP Family Medicine; Visit Provider Internal Medicine | DX: Z12.31 Encounter for screening mammogram for malignant neoplasm of breast (principal) | CPT/HCPCS: 77063; 77067 ==

== ENCOUNTER 2024-11-04 10:38 | Outpatient (AMB) | payer OTHER, SELFPAY ==
--- NOTE | 2024-11-04 10:52 | A.OFFPC_ITS ---
Vital Signs 11/04/24 10:55 Height 4 ft 11 in Weight 136 lb 6 oz BMI 27.5 BP 108/60 Blood Pressure Location Lt brachial Position Sitting Respiration 12 Pulse 79 Pulse Source Pulse Oximeter Temp 97.9 F Temp Source Oral Pulse Oximetry (%) 97 Oxygen Delivery Method Room Air Intake Visit Reasons: f/u diabetes, hypertension Intake Note: f/u DM Allergies codeine [CODEINE] Allergy (Severe, Verified 11/04/24 10:53) VOMITING buprenorphine Allergy (Intermediate, Verified 11/04/24 10:53) dizziness,nausea, vomiting lisinopril Allergy (Intermediate, Verified 11/04/24 10:53) cough naproxen [Naprosyn] Allergy (Intermediate, Verified 11/04/24 10:53) vomitting Penicillins [PENICILLINS] Allergy (Intermediate, Verified 11/04/24 10:53) RASH Medication List - Last Reconciled 11/04/24 by Juan Medellin MD acetaminophen ER (Tylenol 8 Hour) 650 mg PO Q8H PRN amitriptyline 25 mg PO BEDTIME blood pressure monitor Automatic, Digital. Dx: I10. Daily As directed, 999 days/lifetime blood sugar diagnostic (FreeStyle Lite Strips) USE NEEDED TWICE A DAY blood-glucose meter (FreeStyle Lite Meter kit) for daily and prn blood sugars cane Daily As directed, 999days/Lifetime. cetirizine 10 mg PO DAILY clonazepam 1 mg PO DAILY PRN 30 days diclofenac sodium 1% (Arthritis Pain (diclofenac)) 2 grams topical QID 30 days diphenhydramine HCl (Benadryl) 25 mg PO TID PRN epinephrine (EpiPen 2-Brooks) 0.3 mg (0.3 mL) IM Q4H PRN 30 days esomeprazole magnesium 40 mg PO DAILY fluticasone propionate 50 mcg/actuation 1 spray intranasal DAILY fluticasone propionate 220 mcg/actuation (Flovent HFA) 2 puffs inhalation BID 30 days ibuprofen 600 mg PO TID PRN 30 days lancets (FreeStyle Lancets) 1 gauge topical BID PRN losartan 25 mg PO DAILY 90 days olopatadine 0.1% (Pataday Twice Daily Relief) 1 drp ophthalmic (eye) BID 1 month ondansetron HCl mg PO phentermine 15 mg PO QAM sertraline 200 mg (2 x 100 mg) PO QAM 90 days sucralfate 1 g PO BEDTIME zolpidem 10 mg PO BEDTIME PRN Tobacco use date assessed: 04/14/24 Dental Screening Dental Screen Date: 01/14/24 HPI f/u diabetes, hypertension HPI Details 59 y/o female presents to f/u diabetes, hypertension. Last A1c around April 6.1%. A1c today 11/04/24 5.2%. Blood pressure today 108/60, 79p. She is on losartan 25mg daily. She denies any problems with her medication regimen. They report ongoing fatigue. Gets about 3-4 hours of sleep per night. Tries to go to bed earlier. HPI Comments History of Present Illness Details Documentation assistance for Juan Medellin MD, was provided by Michael Bonilla,? Retail Support Associate on 11/04/2024 at 11:07 AM EST. I, Dr. Medellin, have read, observed, and verified documentation. ?? [facility] Medical History Abnormal Pap smear of cervix HTN, goal below 130/80 History of depression Asthma Surgical History History of esophagogastroduodenoscopy (EGD) History of trigger finger History of bilateral carpal tunnel release History of sleeve gastrectomy History of cholecystectomy Family History Father No problems noted. Mother Stroke Heart attack Uterine cancer Smoker Lung cancer Sister S/P KIERAN-BSO (total abdominal hysterectomy and bilateral salpingo- oophorectomy) Other Mental health disorder Substance use disorder Social History Household Members Other:: daughter Housing: Apartment Alcohol intake: never Patient Tobacco Use Status: Former Tobacco user Tobacco use type: Cigarette e-Cigarette/Vaping Use: Never Used service: No Current occupational status: disabled Sexual orientation: Straight/Heterosexual Gender identity: Female Cognitive needs: No Hearing needs: No Vision needs: Yes Female Reproductive History Menstrual Age of Menarche: 14 Questionnaire Thrive Questionnaire Date Thrive assessed: 01/14/24 I am a: Patient What is your living situation today?: I have a steady place to live Within the past 12 months, did the food you bought not last and you didn't have the money to get more?: Often true Within the past 12 months, did you worry whether your food would run out before you got money to buy more?: Never true Do you have trouble paying for medicines?: No Do you have trouble getting transportation to medical appointments?: Yes Do you have trouble paying your heating and electricity bill?: No Do you have trouble taking care of your child, family member or friend?: Yes Do you have trouble with day-to-day activities such as bathing, preparing meals, shopping, managing finances, etc.?: Yes Are you currently unemployed and looking for a job?: No Are you interested in more education?: No Please select the resources that you would like help with: None Currently or been in a relationship where the following occur: No concerns reported THRIVE Score: 2 AUDIT C Alcohol Use Questionnaire (AUDIT-C) 1. How often do you have a drink containing alcohol?: Never Total Score: 0 DICKSON-7 AMB Questionnaire DICKSON-7 Date DICKSON - 7 assessed: 01/14/24 Feeling nervous, anxious, or on edge: 1 = Several days Not being able to stop or control worryin = Several days Worrying too much about different things: 1 = Several days Trouble relaxin = Several days Being so restless that it is hard to sit still: 1 = Several days Becoming easily annoyed or irritable: 2 = More than half the days Feeling afraid as if something awful might happen: 1 = Several days Total DICKSON-7 score (0-4 normal; 5-9 mild; 10-14 moderate; 15-21 severe): 8 Source: Developed by Drs. Raheel Calix, Yani Vargas, Willie Osorio and colleagues, with an educational janine from [email or web address]. Review of Systems Const Denies chills, Reports fatigue, Denies fever(s), Denies headache(s) and Denies weakness ENT Denies dizziness and Denies headache(s) Card Denies dyspnea Resp Denies cough, Denies dyspnea, Denies wheezing and Denies other (shortness of breath) Musc Denies numbness and Denies tingling Neuro Denies dizziness, Denies headache(s), Denies numbness, Denies tingling and Denies weakness Psych Denies anxiety and Denies depression Endo Reports fatigue Aller/Immun Denies wheezing Physical exam (Primary Care) Vital Signs: Last Vital Signs Temp 97.9 F 11/04/24 10:55 Pulse 79 11/04/24 10:55 Resp 12 11/04/24 10:55 BP 108/60 11/04/24 10:55 Pulse Ox 97 11/04/24 10:55 Oxygen Delivery Method Room Air 11/04/24 10:55 BMI result Body Mass Index 27.5 Tobacco/Smoking Status: Tobacco use Status Tobacco use date assessed 04/14/24 11/04/24 10:59 Patient Tobacco Use Status Former Tobacco user 11/04/24 10:59 Tobacco use type Cigarette 11/04/24 10:59 e-Cigarette/Vaping Use Never Used 11/04/24 10:59 Thrive Assessment: Date of Thrive Assessment Date Thrive assessed 01/14/24 11/04/24 10:59 Currently or been in a relationship where the following occur: No concerns reported Const General: well developed; No acute distress Nutritional Appearance: well nourished Orientation/consciousness: patient oriented x3 HENMT Head: Yes normocephalic and Yes atraumatic Eyes General: appearance normal, both eyes and all related structures Pupils: Equal, round and reactive pupils present EOM: EOMs intact bilaterally Resp Effort & Inspection: normal respiratory effort Neuro General: patient oriented x3 and gait normal Cranial nerves: Yes Equal, round and reactive pupils present Psych Affect: normal affect Coding Level of Care Code Est Pt Level 4 (25297) Diagnoses Diet-controlled diabetes mellitus E11.9 HTN, goal below 130/80 I10 Sleep apnea G47.30 Fatigue R53.83 Assessment & Plan Assessment & Plan (1) Diet-controlled diabetes mellitus: Code(s): E11.9 - Type 2 diabetes mellitus without complications Category: Medical Plan: A1c?5.2%?is?very?good?control.??Goal?is?less?than?7% Continue?diet?control (2) HTN, goal below 130/80: Code(s): I10 - Essential (primary) hypertension Category: Medical Plan: Blood?pressure?is?well?controlled.??Goal?is?less?than?140/90 Continue?losartan (3) Sleep apnea: Code(s): G47.30 - Sleep apnea, unspecified Category: Medical Plan: Patient?has?complaints?of?severe?fatigue.??She?is?only?sleepi ng?about?4?hours?per?night?in?his?sleep?is?quite?broken. She?notes?that?she?has?been?diagnosed?with?sleep?apnea?but?has?tried?mass?in?sanna al?cannula?without?being?able?to?tolerate?them She?sleeps?primarily?on?her?back Will?refer?her?to?pulmonology?to?see?if?they?can?help?with?this. May?need?referral?to?ENT Meantime?I?recommended?she?work?on?sleeping?on?her?side?rather?than?her?back. Her?daughter?has?just?bought?her?a?wedge?pillow?to?try?and?keep?sleeping?on?side (4) Fatigue: Code(s): R53.83 - Other fatigue Category: Medical Plan: As?above Will?also?rule?out?other?causes?of?fatigue?such?as?thyroid?imbalance,?anemia?and ?will?have?her?discontinue?zolpidem?and?try?trazodone If?it?is?not?helping,?we?can?resume?the?zolpidem?after?holiday Orders: Orders Complete Blood Count Auto Diff Today G47.30 - Sleep apnea, unspecified, Z00.00 - Encounter for general adult medical examination without abnormal findings Comprehensive Met. Panel Today G47.30 - Sleep apnea, unspecified TSH reflex Free T4 Today G47.30 - Sleep apnea, unspecified, Z00.00 - Encounter for general adult medical examination without abnormal findings Referrals Pulmonology Referral G47.30 - Sleep apnea, unspecified Medications: New trazodone 50 mg PO BEDTIME PRN 30 tabs 2RF sleep 30 days
[2024-11-04 10:55] VITALS: BP 108/60; PULSE 79; RESP 12; TEMP 36.6; O2SAT 97; BMI 27.5
== END 2024-11-04 11:36 | disposition home or self-care (01) ==
PROVIDERS: PCP Family Medicine; Visit Provider Family Medicine
DX: E11.9 Type 2 diabetes mellitus without complications (principal); I10 Essential (primary) hypertension; G47.30 Sleep apnea, unspecified; R53.83 Other fatigue

== ENCOUNTER → 2024-11-04 10:38 | Outpatient (BNVA) | payer OTHER, SELFPAY | PROVIDERS: PCP Family Medicine; Visit Provider Family Medicine | DX: E11.9 Type 2 diabetes mellitus without complications (principal); I10 Essential (primary) hypertension; G47.30 Sleep apnea, unspecified; R53.83 Other fatigue | CPT/HCPCS: 99212 ==

== ENCOUNTER 2024-11-04 11:47 | Outpatient (REF) | payer OTHER, SELFPAY ==
[2024-11-04 14:22] LABS: MANUAL DIFF FLAG NO
[2024-11-04 14:47] LABS: Basophils Percent Auto 0.4 % (0-2); Eosinophils Absolute Auto 0.2 X10*3/uL (0.0-0.4); Eosinophils Percent Auto 2.1 % (0-4); Hematocrit 38.2 % (37.0-47.0); Hemoglobin 12.8 g/dl (12.0-16.0); Imm Gran Abs Auto 0.02 X10*3/uL (0.00-0.03); Imm Gran Pct Auto 0.3 % (0.0-0.4); Lymphocytes Absolute Auto 2.1 X10*3/uL (1.2-4.9); Lymphocytes Percent Auto 28.9 % (20-40); Mean Corpuscular HGB Conc 33.5 g/dl (31.0-35.0); Mean Corpuscular Hemoglobin 29.1 pg (27.0-33.0); Mean Corpuscular Volume 86.8 fL (80.0-98.0); Mean Platelet Volume 9.7 fL (9.4-12.3); Monocytes Absolute Auto 0.6 X10*3/uL (0.1-1.2); Monocytes Percent Auto 7.5 % (2-11); Neutrophils Absolute Auto 4.4 x10*3/uL (2.0-8.3); Neutrophils Percent Auto 60.8 % (45-73); Platelet Count 282 X10*3/uL (160-400); Red Cell Distribution Width 13.4 % (11.0-16.0); White Blood Count 7.3 X10*3/uL (4.8-10.8)
[2024-11-04 14:55] LABS: Alanine Aminotransferase 16 U/L (0-31); Albumin Level 4.2 g/dL (3.5-5.0); Alkaline Phosphatase 69 U/L (39-117); Anion Gap 11 (12-20); Aspartate Amino Transferase 27 U/L (5-31); Bilirubin Total 0.2 mg/dL (0.0-1.0); Blood Urea Nitrogen 18 mg/dL (9-16); Calcium 9.4 mg/dL (8.4-10.2); Carbon Dioxide 28 mmol/L (22-29); Chloride 106 mmol/L (96-108); Estimated Glomerular Filt Rate > 60; Glucose Random 83 mg/dL (60-115); Sodium 141 mmol/L (135-145); Total Protein 7.8 g/dL (6.5-8.0)
== END 2024-11-04 11:48 | disposition home or self-care (01) ==
LOC: HO.WFDLDS 11:47
PROVIDERS: Visit Provider Family Medicine
DX: Z00.00 Encounter for general adult medical examination without abnormal findings (principal); G47.30 Sleep apnea, unspecified
CPT/HCPCS: 36415; 80053; 85025

== ENCOUNTER 2024-12-24 10:38 | Outpatient (AMB) | payer OTHER, SELFPAY ==
[2024-12-24 10:39] VITALS: BP 128/78; PULSE 74; O2SAT 100; BMI 26.9
--- NOTE | 2024-12-24 10:39 | MHC.OFFVIS ---
Vital Signs 12/24/24 10:39 Height 4 ft 11 in Weight 133 lb 6.075 oz BMI 26.9 BP 128/78 Blood Pressure Location Rt brachial Position Sitting Pulse 74 Pulse Source Doppler Pulse Oximetry (%) 100 Oxygen Delivery Method Room Air Intake Visit Reasons: Sleep apnea Spare Hand Carding Required: Yes Spare Hand Carding Name: Rufina Vladislav Cameron Allergies codeine [CODEINE] Allergy (Severe, Verified 12/24/24 10:45) VOMITING buprenorphine Allergy (Intermediate, Verified 12/24/24 10:45) dizziness,nausea, vomiting lisinopril Allergy (Intermediate, Verified 12/24/24 10:45) cough naproxen [Naprosyn] Allergy (Intermediate, Verified 12/24/24 10:45) vomitting Penicillins [PENICILLINS] Allergy (Intermediate, Verified 12/24/24 10:45) RASH HPI HPI Sleep apnea: Details: 59-year-old lady, nonsmoker, with underlying history of environmental allergies 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 Patient denies having recent pulmonary function testing. She denies having family history of lung disease. [facility] Medical History Abnormal Pap smear of cervix HTN, goal below 130/80 History of depression Asthma Surgical History History of esophagogastroduodenoscopy (EGD) History of trigger finger History of bilateral carpal tunnel release History of sleeve gastrectomy History of cholecystectomy Family History Father No problems noted. Mother Stroke Heart attack Uterine cancer Smoker Lung cancer Sister S/P KIERAN-BSO (total abdominal hysterectomy and bilateral salpingo-oophorectomy) Other Mental health disorder Substance use disorder Social History (Updated 12/24/24 @ 10:48 by ANA Aparicio) Household Members Other:: daughter Housing: Apartment Alcohol intake: never Patient Tobacco Use Status: Former Tobacco user Tobacco use type: Cigarette Years Smoked: quit 10 yrs ago, started age 42. 1PPD e-Cigarette/Vaping Use: Currently Using Frequency of e-Cigarette/Vaping Use: Vape, every day service: No Current occupational status: disabled Sexual orientation: Straight/Heterosexual Gender identity: Female Cognitive needs: No Hearing needs: No Vision needs: Yes Female Reproductive History Menstrual Age of Menarche: 14 Review of Systems Const Denies daytime sleepiness, Denies excessive sweating, Denies fatigue, Denies fever(s), Denies lethargy, Denies malaise, Denies night sweats, Denies snoring and Denies weight loss Eyes Denies blurry vision and Denies itchy eyes ENT Denies nasal congestion, Denies post nasal drip, Denies sinus pain, Denies sinus pressure and Denies other ( Thrush) Card Denies chest pain, Denies pedal edema, Denies dyspnea, Denies orthopnea and Denies paroxysmal nocturnal dyspnea Resp Denies cough, Denies hemoptysis, Denies excessive phlegm production, Denies dyspnea, Denies snoring and Denies wheezing GI Denies abdominal pain and Denies heartburn Musc Denies myalgias, Denies arthralgias and Denies joint swelling Skin/Breast Denies rash Neuro Denies memory loss and Denies seizure-like activity Psych Denies abnormal sleep pattern, Denies anxiety and Denies memory loss Endo Denies excessive sweating, Denies fatigue and Denies heat intolerance Rocco/Lymph Denies easy bruising Aller/Immun Denies itchy eyes, Denies seasonal rhinorrhea and Denies wheezing Physical Exam Vital Signs: Last Vital Signs Pulse 74 12/24/24 10:39 BP 128/78 12/24/24 10:39 Pulse Ox 100 12/24/24 10:39 Oxygen Delivery Method Room Air 12/24/24 10:39 BMI result Body Mass Index 26.9 Const General: no acute distress and alert Nutritional Appearance: not obese Orientation/consciousness: Other orientation findings ( oriented) HEENT Head: Yes atraumatic Eyes General: appearance normal, both eyes and all related structures Sclerae: sclerae normal EOM: EOMs intact bilaterally Neck Neck: Yes supple Lymphatic: no lymphadenopathy noted Resp Effort & Inspection: normal respiratory effort and no use of accessory muscles Auscultation: clear to auscultation bilaterally Cardio Rate: regular rate Rhythm: regular rhythm Heart sounds: no gallops, no murmurs and no rubs Skin General skin exam: other ( warm) Extrem General: No clubbing, No cyanosis and No edema Assessment & Plan Assessment & Plan (1) Cough: Code(s): R05 - Cough Category: Medical Plan: Unclear etiology, but may have asthmatic component. Will obtain full PFT and continue Flovent, may consider immunologic therapy. (2) Sleep apnea: Code(s): G47.30 - Sleep apnea, unspecified Category: Medical Plan: Results of sleep study reviewed, underlying moderate obstructive sleep apnea with patient unable to use CPAP. Nocturnal jaw advancement therapy device utilization discussed. 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 Coding Level of Care Code New Pt Level 4 (69186) Diagnoses Cough R05 Sleep apnea G47.30 Environmental allergies Z91.09
--- OUTSIDE RECORDS SUMMARY | 2024-12-24 12:24 | XMS_ITS | Clinical Summary ---
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 Name Role Phone Unavailable Primary Care Provider Unavailabl e Social History Tobacco Use Types Packs/Day Years Used Date Smoking Tobacco: Never Assessed Comments Unknown Sex and Gender Information Value Date Recorded Sex Assigned at Not on file Legal Sex Female 5:13 PM EST Gender Identity Not on file Sexual Orientation Not on file Plan of Treatment Health Maintenance Due Date Last Done Comments Breast Cancer Screening 1967 Hepatitis B Vaccine (1 of 3 - 19+ 3-dose series) 1986 Colorectal Cancer Screening: Annual FOBT 2016 Colorectal Cancer Screening: Colonoscopy 2016 Colorectal Cancer Screening: Sigmoidoscopy 2016 Influenza Vaccine (#1) 2024 Pneumococcal Vaccine: Pediat rics (0 to 5 Years) and At-Risk Patients (6 to 64 Years) Aged Out No longer eligible b ased on patient's age to complete this topic
--- OUTSIDE RECORDS SUMMARY | 2024-12-24 12:24 | XMS_ITS | Encounter Summary ---
Author Organization [facility] Address [address] [place] [address] Care Team Providers Care Telegraph Installer Name Role Phone Josesito Mast MD Primary Care Provider + [phone] Reason for Visit * Reason Onset Date Comments Med Refill 12/23/2024 Zepbound Encounter Details Date Type Department Care Team ([facility] st Contact Info) Description 12/23/2024 Telephone Bariatric Surgery - [place] [address] [facility] [address] [place] [address] Eun Littlejohn PA [address] [facility] [address] [place], [place] [id number] Med Refill (Zepbound) Social History Tobacco Use Types Packs/Day Years Used Date Smoking Tobacco: Former Cigarettes Q uit: 09/12/2013 Smokeless Tobacco: Never Alcohol Use Standard Drinks/Week Comments Yes 0 (1 standard drink = 0.6 oz pur e alcohol) Comments Unknown Sex and Gender Information Value Date Recorded Sex Assigned at Not on file Legal Sex Female 11:13 AM EST Gender Identity Not on file Sexual Orientation Not on file documented as of this encounter Progress Notes * Kasey Vargas - 12/23/2024 2:56 PM EST Patient did well on Zepbound 2.5 mgs and would like a refill with titration. If appropriate, please send script for Zepbound 5 mgs to their pharmacy. The patient does have a follow up in 03/16/2025 documented in this encounter Plan of Treatment Upcoming Encounters Date Type Department Care Team (Late st Contact Info) Description 03/16/2025 9:15 AM EDT Office Visit Bariatric Surgery - [place] [address] [phone] Eun Littlejohn PA [address] [id number] documented as of this encounter Visit Diagnoses Not on filedocumented in this encounter Care Teams Telegraph Installer Relationship Specialty Start Date End Date Josesito Mast MD [address] [place] [address] PCP - General Rheumatology 12/02/19 documented as of this encounter
--- OUTSIDE RECORDS SUMMARY | 2024-12-24 12:24 | XMS_ITS | Clinical Summary ---
Author Organization 175 [facility] Address 175 [place] [address] Phone Care Team Providers Care Software Configuration Engineer Name Role Phone Josesito Mast MD Primary Care Provider Allergies Active Allergy Reactions Criticality Noted Date Comments Amlodipine 04/07/2014 Swelling Lisinopril Cough 03/06/2014 Penicillins Hives 12/20/2006 rash Medications albuterol HFA (PROAIR HFA ; PROVENTIL HFA ; VENTOLIN HFA) 90 mcg/actuation inhaler Inhale 2 Puffs into the lungs every 4 hours as needed for Cough or Wheezing. 02/18/20 14 Active zolpidem (Ambien) 10 mg tablet 1 TABLET AT BEDTIME NEEDED Active bisacodyL 5 mg tablet Take 4 tablets by mouth right before your first dose of liquid prep. 12/19/19 22 Active blood-glucose meter kit Active fexofenadine HCl (FEXOFENADINE ORAL) Take by mouth. Active fluticasone propionate (FLONASE) 50 mcg/actuation nasal spray 1 [place] by Nasal route daily. 11/22/19 14 Active FREESTYLE LANCETS [facility] Active blood sugar diagnostic (FreeStyle Lite Strips) test strip by In Vitro route. Active IBUPROFEN ORAL Take by mouth. Active clonazePAM (KlonoPIN) 1 mg tablet 1 tablet daily Active losartan (COZAAR) 25 mg tablet PLEASE SEE ATTACHED FOR DETAILED DIRECTIONS 06/02/20 22 Active metformin HCl (METFORMIN ORAL) Take by mouth. Active multivitamin with iron (DAILY VITES/IRON ORAL) TAKE 1 TABLET BY MOUTH EVERY DAY 05/31/20 22 Active pantoprazole (PROTONIX) 40 mg EC tablet Take 1 tablet (40 mg total) by mouth 1 (one) time each day. 03/04/20 24 Active RANITIDINE HCL ORAL Take by mouth. Active sertraline (ZOLOFT) 100 mg tablet Take 1 tablet (100 mg total) by mouth 1 (one) time each day. 04/07/20 14 Active traMADoL (ULTRAM) 50 mg tablet Take 50 mg by mouth every 6 hours as needed. Active cholecalcifero l (VITAMIN D-3) 1,250 mcg (50,000 unit) capsule Take 1 capsule (50,000 Units total) by mouth 1 (one) time per week. 12/25/19 24 Active Daily-Ome, with folic acid, 400 mcg tablet TAKE 1 TABLET BY MOUTH EVERY DAY 30 tablet 09/15/20 24 Active semaglutide (Wegovy) 1.7 mg/0.75 mL injection penIndications :Morbid obesity (CMS/HCC) Inject 1.7 mg under the skin every 7 (seven) days for 28 days. 3 mL 11/27/19 25 025 Active Daily-Moe tablet TAKE 1 TABLET BY MOUTH EVERY DAY 30 tablet 12/01/19 25 Active multivitamin (Daily-Moe) tablet TAKE 1 TABLET BY MOUTH EVERY DAY 30 tablet 10/14/20 24 025 Discontinued semaglutide (Wegovy) 1.7 mg/0.75 mL injection penIndications :Morbid obesity (CMS/HCC) INJECT 1.7 MG UNDER THE SKIN EVERY 7 (SEVEN) DAYS. 3 mL 11/17/19 25 025 Discontinued(Re order) tirzepatide, weight loss, (Zepbound) 2.5 mg/0.5 mL solution Inject 2.5 mg under the skin every 7 (seven) days. 2 mL 12/01/19 25 025 Discontinued Active Problems Problem Noted Date Diagnosed Date Intestinal malabsorption following gastrectomy 0 07/15/2020 Vitamin D deficiency 07/02/2019 Diabetes mellitus type 2, uncomplicated 03/25/20 19 Arthritis 04/08/2014 Asthma 03/06/2014 Essential hypertension, benign 03/06/2014 Helicobacter pylori infection 03/09/2008 Overview (08/07/2024): Treatment initiation 03/09/08. GERD (gastroesophageal reflux disease) Overview (08/07/2024): History of upper GI endoscopy approximately 2002, [place], [place]. 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 Acute upper respiratory infection 08/07/2007 Allergic rhinitis 08/07/2007 Anxiety state 08/07/2007 Depression 08/07/2007 Calculus of kidney 06/20/2007 Generalized osteoarthrosis 06/20/2007 Iron deficiency anemia 06/20/2007 Encounters Date Type Department Care Team Description 12/23/2024 Telephone Bariatric Surgery [address] [phone] Eun Littlejohn PA Med Refill (Zepbound) 11/28/2024 [place] [facility] [address] [phone] Eun Littlejohn PA Medication Problem (Zepbound) 10/20/2024 [place] [facility] [address] [phone] Eun Littlejohn PA Med Refill (wegovy) from Last 3 Months Immunizations Name Administration Dates Next Due Influenza trivalent, with pr eservative (Fluzone; Afluria) 6mo and older 09/10/2013,08/03/2008,09/03/2007 Tdap Tetanus diptheria acell ular pertussis (Boostrix; Adacel) 7yo and older 06/02/2008 Surgical History Surgery Date Site/Laterality Comments TUBAL LIGATION PROCEDURE: HISTORICAL TUBAL LIGATION CHOLECYSTECTOMY 1991 PROCEDURE: HISTORICAL CHOLECYSTECTOMY; COMMENT: Laparoscopic cholecystectomy ESOPHAGOGASTRODUODENOSCOPY 04/21/2008 PROCEDURE: NM EGD TRANSORAL BIOPSY SINGLE/MULTIPLE; COMMENT: EGD ok, bx for H. pylori: CARPAL TUNNEL RELEASE Bilateral PROCEDURE: HISTORICAL CARPAL TUNNEL REL OTHER SURGICAL HISTORY Left PROCEDURE: HISTORY OTHER; COMMENT: middle finger, trigger finger release OTHER SURGICAL HISTORY 02/06/2022 PROCEDURE: NM EGD DILATION GASTRIC/DUODENAL STRICTURE; COMMENT: changes consistent with gastric sleeve, narrowing noted and dilated with 20 mm balloon Medical History Medical History Date Comments Generalized osteoarthrosis, unspecified site DX:Generalized osteoarthrosi s, unspecified site Calculus of kidney DX:Calculus o f kidney Iron deficiency anemia, unspecified DX:Iron deficiency anemia, unspecified Anxiety state, unspecified 08/07/2007 DX:An xiety state, unspecified Head ache 10/23/2007 DX:Head ache; CO MMENT: MRI from 10/2007 shows Chiari 1 malformation. Historical Medical DX 03/09/2008 DX:Helicob acter pylori; COMMENT: Treatment initiation 03/09/08. GERD (gastroesophageal reflu x disease) 03/06/2008 DX:GERD (gastroesophageal re flux disease); COMMENT: History of upper GI endoscopy approximately 2002, [place], [place]. Essential hypertension, benign 03/06/2014 D X:Essential hypertension, benign Depression 08/07/2007 DX:Depression; C OMMENT: [facility] Diabetes mellitus type 2, uncomplicated ([facility]) 03/25/2019 DX:Diabetes mellitus type 2, uncomplicated ([facility]) Arthritis 04/08/2014 DX:Arthritis Class 3 severe obesity due t o excess calories without serious comorbidity with body mass index (BMI) of 40.0 to 44.9 in adult ([facility]) 01/07/2019 DX:Class 3 severe obesity du e to excess calories without serious comorbidity with body mass index (BMI) of 40.0 to 44.9 in adult ([facility]) Family History Medical History Relation Name Comments Lung cancer Mother [place], stroke, [place] rine cancer Diabetes Sister 1 Hypertension Sister 2 Blindness Neg Hx Cataracts Neg Hx Glaucoma Neg Hx Macular degeneration Neg Hx Strabismus Neg Hx Relation Name Status Comments Father Alive dm Mother Paternal Grandmother DM Sister 1 Sister 2 Sister 3 Alive dm Social History Tobacco Use Types Packs/Day Years Used Date Smoking Tobacco: Former Cigarettes Q uit: 09/12/2013 Smokeless Tobacco: Never Tobacco Cessation:Counseling Given: Not Answered Alcohol Use Standard Drinks/Week Comments Yes 0 (1 standard drink = 0.6 oz pur e alcohol) Comments Unknown Sex and Gender Information Value Date Recorded Sex Assigned at Not on file Legal Sex Female 11:13 AM EST Gender Identity Not on file Sexual Orientation Not on file Obstetrics History Last Filed Vital Signs Vital Sign Reading Time Taken Comments Blood Pressure 126/79 09/15/2024 11:11 AM EST Pulse 71 09/15/2024 11:11 AM EST Temperature - - Respiratory Rate - - Oxygen Saturation - - Inhaled Oxygen Concentration - - Weight 63 kg (139 lb) 09/15/2024 11:11 AM EST Height 149.9 cm (4' 11 ) 09/15/2024 11:11 AM EST Body Mass Index 28.07 09/15/2024 11:11 AM EST Plan of Treatment Upcoming Encounters Date Type Department Care Team (Late st Contact Info) Description 03/16/2025 9:15 AM EDT Office Visit Bariatric Surgery - [place] 175 [facility] [address] [place] [phone] Eun Littlejohn PA 271 [facility] [address] [place] [address] Health Maintenance Due Date Last Done Comments Breast Cancer Screening 1967 Diabetes: Annual Foot Exam 1977 Diabetes: Annual Retina Eye Exam 1977 Hepatitis B Vaccines (1 of 3 - 19+ 3-dose series) 1986 Pneumococcal Vaccine: 50+ Years (1 of 2 - PCV) 1986 Pneumococcal Vaccine: Pediatrics (0 to 5 Years) and At-Risk Patients (6 to 64 Years) (1 of 2 - PCV) 1986 Zoster Vaccines (1 of 2) 2017 DTaP,Tdap,and Td Vaccines (2 - Td or Tdap) 06/02/2018 06/02/2008 Cervical Cancer Screening: P ap Smear 07/29/2022 07/29/2019, 12/08/2013 Colorectal Cancer Screening: Colonoscopy 10/10/2022 Depression Screening 10/10/2022 Hepatitis C Screening 10/10/2022 Social Influencers of Health Screening 10/10/2022 Diabetes: Annual Urine Albumin-Creatinine Ratio (uACR) 10/18/2022 Diabetes: Blood Sugar Contro l Test (HGBA1C) 10/18/2022 07/02/2019 Diabetes: Annual GFR (Glomerular Filtration Rate) 10/02/2023 10/02/2022 Hypertension/CHF/CAD Annual BMP Blood Test 10/02/2023 10/02/2022 Cholesterol Screening (Lipid Panel) 07/02/2024 07/02/2019 COVID-19 Vaccine (1 - 2023-2 5 season) 2024 Influenza Vaccine (#1) 2024 3, 08/03/2008, 09/03/2007 HIV Screening Completed 11/26/2007 HIB Vaccines Aged Out No longer eligi ble based on patient's age to complete this topic HPV Vaccines Aged Out No longer eligi ble based on patient's age to complete this topic Hepatitis A Vaccines Aged Out No long er eligible based on patient's age to complete this topic IPV Vaccines Aged Out No longer eligi ble based on patient's age to complete this topic MMR Vaccines Aged Out No longer eligi ble based on patient's age to complete this topic Meningococcal ACWY Vaccine Aged Out N o longer eligible based on patient's age to complete this topic Meningococcal B Vacine Aged Out No lo nger eligible based on patient's age to complete this topic RSV Immunization Patients Under 20 months Aged Out No longer eligible b ased on patient's age to complete this topic Varicella Vaccines Aged Out No longer eligible based on patient's age to complete this topic Procedures Procedure Name Priority Date/Time Associated Diagnosis Comments ANNUAL BMP BLOOD TEST Routine 10/02/2022 PAP SMEAR Routine 07/29/2019 HEMOGLOBIN A1C Routine 07/02/2019 LIPID PANEL Routine 07/02/2019 HIV SCREENING Routine 11/26/2007 from Last 3 Months or Most Recently Relevant to Health Maintenance Results * Annual BMP Blood Test (10/02/2022) Annual BMP Blood Test abstracted us Historical Provider HEALTH MAINTENANCE Final Result * Pap Smear (07/29/2019) Pap smear no interpreta tion,abstr acted Result [facility] Provider HEALTH MAINTENANCE Final Result * (ABNORMAL) Hemoglobin A1c (07/02/2019) Pathologist [facility] Hemoglobin A1C 7.8(A) <=6.5 % Blood Venous blood specimen / Unknown Result [facility] Provider LAB BLOOD ORDERABLES Consuelo l Result * Lipid panel (07/02/2019) Pathologist [facility] LDL/HDL Ratio 4 0 - 4 Triglycerides 150 0 - 150 mg/dL Cholesterol 172 0 - 200 mg/dL HDL 46 >=40 mg/dL LDL Cholesterol 96 0 - 100 mg/dL Blood Venous blood specimen / Unknown Result [facility] Provider LAB BLOOD ORDERABLES Consuelo l Result * Hm HIV Screening (11/26/2007) Pathologist [facility] HIV Screening abstracted Result [facility] Provider HEALTH MAINTENANCE Final Result from Last 3 Months or Most Recently Relevant to [place] [id number] [facility] Care Teams Software Configuration Engineer Relationship Specialty Start Date End Date Josesito Mast MD [address] [place] [address] PCP - General Rheumatology 12/02/19
--- OUTSIDE RECORDS SUMMARY | 2024-12-24 12:24 | XMS_ITS | Encounter Summary ---
Author Organization [facility] Address [address] [place] [address] Care Team Providers Care Management Advisor Name Role Phone Josesito Mast MD Primary Care Provider + [phone] Reason for Visit * Reason Onset Date Comments Medication Problem 11/28/2024 Zepbound Encounter Details Date Type Department Care Team ([facility] st Contact Info) Description 11/28/2024 Telephone Bariatric Surgery - [place] 175 [facility] 120 [place] [address] Eun Littlejohn PA [address] [facility] 120 [place], [place] [phone] Medication Problem (Zepbound) Social History Tobacco Use Types Packs/Day [...] on file documented as of this encounter Ordered Prescriptions Prescription Sig Dispense Quantity Refills Last Filled Start Date End Date tirzepatide, weight loss, (Zepbound) 2.5 mg/0.5 mL solution Inject 2.5 mg under the skin every 7 (seven) days. 2 mL 12/01/2024 12/24/2024 documented in this encounter Progress Notes * Kasey Vargas - 11/28/2024 11:40 AM EST Patient needs script for Zepbound 2.5 mg per [employer] documented in this encounter Plan of Treatment Upcoming Encounters Date Type Department Care Team (Late st Contact Info) Description 03/16/2025 9:15 AM EDT Office Visit Bariatric Surgery - [place] [address] [phone] Eun Littlejohn PA [address] [address] documented as of this encounter Visit Diagnoses Not on filedocumented in this encounter Care Teams Management Advisor Relationship Specialty Start Date End Date Josesito Mast MD [address] [place] [address] PCP - General Rheumatology 12/02/19 documented as of this encounter
== END 2024-12-24 11:03 | disposition home or self-care (01) ==
PROVIDERS: PCP Family Medicine; Visit Provider Internal Medicine Pulmonary Disease
DX: R05.9 Cough, unspecified (principal); G47.30 Sleep apnea, unspecified; Z91.09 Other allergy status, other than to drugs and biological substances
CPT/HCPCS: 99204

== ENCOUNTER → 2024-12-24 10:38 | Outpatient (BNVA) | payer OTHER, SELFPAY | PROVIDERS: PCP Family Medicine; Visit Provider Internal Medicine Pulmonary Disease | DX: G47.30 Sleep apnea, unspecified (principal); R05.9 Cough, unspecified; Z91.09 Other allergy status, other than to drugs and biological substances | CPT/HCPCS: 99202 ==

== ENCOUNTER → 2025-01-13 10:11 | Outpatient (BNVA) | payer OTHER, SELFPAY | PROVIDERS: PCP Family Medicine; Visit Provider Family Medicine ==

== ENCOUNTER 2025-01-13 11:01 | Outpatient (REF) | payer OTHER, SELFPAY ==
--- OUTSIDE RECORDS SUMMARY | 2025-01-13 13:43 | XMS_ITS | Encounter Summary ---
Author Organization [facility] Address [address] [place] [address] Care Team Providers Care Potable Water Treatment Operator Name Role Phone Josesito Mast MD Primary Care Provider + [phone] Reason for Visit * Reason Onset Date Comments Med Refill 12/23/2024 Zepbound Encounter Details Date Type Department Care Team ([facility] st Contact Info) Description 12/23/2024 Telephone Bariatric Surgery - [place] 175 [facility] [address] [place] [address] Eun Littlejohn PA 271 [facility] 120 [place], [place] [phone] Med Refill (Zepbound) Social History Tobacco Use [...] AM EDT Office Visit Bariatric Surgery - [place] [address] [phone] Eun Littlejohn PA [address] [address] documented as of this encounter Visit Diagnoses Not on filedocumented in this encounter Care Teams Potable Water Treatment Operator Relationship Specialty Start Date End Date Josesito Mast MD [address] [place] [address] PCP - General Rheumatology 12/02/19 documented as of this encounter
--- OUTSIDE RECORDS SUMMARY | 2025-01-13 13:43 | XMS_ITS | Clinical Summary ---
Author Organization 175 [facility] Address 175 [place] [address] Phone Care Team Providers Care Biomedical Repair Technician Name Role Phone Josesito Mast MD Primary [...] propionate (FLONASE) 50 mcg/actuation nasal spray 1 [place] by Nasal route daily. 11/22/19 14 Active FREESTYLE LANCETS [facility] Active blood sugar diagnostic (FreeStyle Lite Strips) test strip by In Vitro route. Active IBUPROFEN ORAL Take by mouth. Active clonazePAM (KlonoPIN) 1 mg tablet 1 tablet daily Activ e losartan (COZAAR) 25 mg tablet PLEASE SEE ATTACHED FOR DETAILED DIRECTIONS 06/02/20 22 Active metformin HCl (METFORMIN ORAL) Take by mouth. Activ e multivitamin with iron (DAILY VITES/IRON ORAL) TAKE 1 TABLET BY MOUTH EVERY DAY 05/31/20 22 Active pantoprazole (PROTONIX) 40 mg EC tablet Take 1 tablet (40 mg total) by mouth 1 (one) time each day. 03/04/20 24 Active RANITIDINE HCL ORAL Take by mouth. Activ e sertraline (ZOLOFT) 100 mg tablet Take 1 tablet (100 mg total) by mouth 1 (one) time each day. 04/07/20 14 Active traMADoL (ULTRAM) 50 mg tablet Take 50 mg by mouth every 6 hours as needed. Active cholecalcifero l (VITAMIN D-3) 1,250 mcg (50,000 unit) capsule Take 1 capsule (50,000 Units total) by mouth 1 (one) time per week. 12/25/19 24 Active Daily-Moe, with folic acid, 400 mcg tablet TAKE 1 TABLET BY MOUTH EVERY DAY 30 tablet 09/15/20 24 Active tirzepatide, weight loss, (Zepbound) 5 mg/0.5 mL injection Inject 0.5 mL (5 mg total) under the skin every 7 (seven) days for 28 days. 2 mL 12/25/19 25 025 Active Daily-Moe tablet TAKE 1 TABLET BY MOUTH EVERY DAY 30 tablet 01/09/20 25 Active semaglutide (Wegovy) 1.7 mg/0.75 mL injection penIndications :Morbid obesity (CMS/HCC) Inject 1.7 mg under the skin every 7 (seven) days for 28 days. 3 mL 11/27/19 25 025 Daily-Moe tablet TAKE 1 TABLET BY MOUTH EVERY DAY 30 tablet 12/01/19 25 025 Discontinued tirzepatide, weight loss, (Zepbound) 2.5 mg/0.5 mL [...] Treatment initiation 03/09/08. GERD (gastroesophageal reflux disease) 8 Overview (08/07/2024): History of upper GI endoscopy approximately 2002, [place], [place]. 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 Acute upper respiratory infection 08/07/2007 Allergic rhinitis 08/07/2007 Anxiety state 08/07/2007 Depression 08/07/2007 Calculus of kidney 06/20/2007 Generalized osteoarthrosis 06/20/2007 Iron deficiency anemia 06/20/2007 Encounters Date Type Department Care Team Description 12/23/2024 Telephone Bariatric Surgery [address] [phone] Eun Littlejohn PA Med Refill (Zepbound) 11/28/2024 Telephone Bariatric Surgery [address] [phone] Eun Littlejohn PA Medication Problem (Zepbound) 10/20/2024 Telephone Bariatric Surgery [address] [phone] Eun Littlejohn PA Med Refill (wegovy) from Last 3 Months Immunizations Name Administration Dates Next Due Influenza trivalent, with pr eservative (Fluzone; Afluria) 6mo and older 09/10/2013,08/03/2008,09/03/2007 Tdap Tetanus diptheria acell ular pertussis (Boostrix; Adacel) 7yo and older 06/02/2008 Surgical History Surgery Date Site/Laterality Comments TUBAL LIGATION PROCEDURE: HISTORICAL TUBAL LIGATION CHOLECYSTECTOMY 1991 PROCEDURE: HISTORICAL CHOLECYSTECTOMY; COMMENT: Laparoscopic cholecystectomy ESOPHAGOGASTRODUODENOSCOPY 04/21/2008 PROCEDURE: [place] EGD TRANSORAL BIOPSY SINGLE/MULTIPLE; COMMENT: EGD ok, bx for H. pylori: CARPAL TUNNEL RELEASE Bilateral PROCEDURE: HISTORICAL CARPAL TUNNEL REL OTHER SURGICAL HISTORY Left PROCEDURE: HISTORY OTHER; COMMENT: middle finger, trigger finger release OTHER SURGICAL HISTORY 02/06/2022 PROCEDURE: OK EGD DILATION GASTRIC/DUODENAL STRICTURE; COMMENT: changes consistent [...] History of upper GI endoscopy approximately 2002, [place], [place]. Essential hypertension, benign 03/06/2014 D X:Essential hypertension, benign Depression 08/07/2007 DX:Depression; C OMMENT: [facility] Diabetes mellitus type 2, uncomplicated ([facility]) 03/25/2019 DX:Diabetes mellitus type 2, uncomplicated ([facility]) Arthritis 04/08/2014 DX:Arthritis Class 3 severe obesity due t o excess calories without serious comorbidity with body mass index (BMI) of 40.0 to 44.9 in adult ([facility]) 01/07/2019 DX:Class 3 severe obesity du e to excess calories without serious comorbidity with body mass index (BMI) of 40.0 to 44.9 in adult ([facility]) Family History Medical History Relation Name Comments Lung cancer Mother [place], stroke, [place]ine cancer Diabetes Sister 1 Hypertension Sister [...] AM EDT Office Visit Bariatric Surgery - [place] 175 [facility] [address] [place] [phone] Eun Littlejohn PA [address] [facility] [address] [place] [address] Health Maintenance Due Date Last Done Comments [...] Test (10/02/2022) Annual BMP Blood Test abstracted Historical Provider HEALTH MAINTENANCE Final Result * Pap Smear (07/29/2019) Pap smear no interpreta tion,abstr acted us Historical Provider HEALTH MAINTENANCE Final Result * (ABNORMAL) Hemoglobin A1c (07/02/2019) Pathologist [facility] Hemoglobin A1C 7.8(A) <=6.5 % Blood Venous blood specimen / Unknown Result [facility] Provider LAB BLOOD ORDERABLES Consuelo l Result * Lipid panel (07/02/2019) Pathologist [facility] LDL/HDL Ratio 4 0 - 4 Triglycerides 150 0 - 150 mg/dL Cholesterol 172 0 - 200 mg/dL HDL 46 >=40 mg/dL LDL Cholesterol 96 0 - 100 mg/dL Blood Venous blood specimen / Unknown Result [facility] Provider LAB BLOOD ORDERABLES Consuelo l Result * Hm HIV Screening (11/26/2007) Pathologist [facility] HIV Screening abstracted Result [facility] Provider HEALTH MAINTENANCE Final Result from Last 3 Months or Most Recently Relevant to Health Maintenance Insurance [facility] [place] [id number] [facility] [employer] Care Teams Biomedical Repair Technician Relationship Specialty Start Date End Date Josesito Mast MD [address] [place] [address] PCP - General Rheumatology 12/02/19
--- OUTSIDE RECORDS SUMMARY | 2025-01-13 13:43 | XMS_ITS | Clinical Summary ---
Author Organization [facility] Address [address] [place] [address] Care Team Providers Care Mains And Service Supervisor Name Role Phone Unavailable Primary Care Provider [...]
[2025-01-13 14:42] LABS: Alanine Aminotransferase 20 U/L (0-31); Albumin Level 4.1 g/dL (3.5-5.0); Alkaline Phosphatase 70 U/L (39-117); Anion Gap 10 (12-20); Aspartate Amino Transferase 26 U/L (5-31); Bilirubin Total 0.3 mg/dL (0.0-1.0); Blood Urea Nitrogen 14 mg/dL (9-16); Calcium 9.2 mg/dL (8.4-10.2); Carbon Dioxide 29 mmol/L (22-29); Chloride 106 mmol/L (96-108); Cholesterol 151 mg/dL (<200); Estimated Glomerular Filt Rate > 60; Glucose Random 81 mg/dL (60-115); HDL Cholesterol 42 mg/dL (>40); LDL Cholesterol Calculated 69 mg/dL (<100); Sodium 141 mmol/L (135-145); Total Protein 8.2 g/dL (6.5-8.0); Triglycerides 201 mg/dL (<150)
[2025-01-13 15:00] LABS: TSH reflex Free T4 0.63 uIU/mL (0.32-4.0)
[2025-01-14 11:48] LABS: LDL Cholesterol Direct 76 mg/dL (<100)
== END 2025-01-13 11:02 | disposition home or self-care (01) ==
LOC: HO.WFDLDS 11:01
PROVIDERS: Visit Provider Family Medicine
DX: Z00.00 Encounter for general adult medical examination without abnormal findings (principal); E11.9 Type 2 diabetes mellitus without complications; R53.83 Other fatigue; E78.5 Hyperlipidemia, unspecified; E66.9 Obesity, unspecified
CPT/HCPCS: 36415; 80053; 80061; 83721; 84443

== ENCOUNTER 2025-01-21 08:47 | Outpatient (AMB) | payer OTHER, SELFPAY ==
--- NOTE | 2025-01-21 08:45 | MHC.PC.OV ---
Vital Signs 01/21/25 09:20 Height 4 ft 11 in Weight 133 lb 8 oz BMI 27.0 BP 110/66 Blood Pressure Location Rt brachial Position Sitting Respiration 16 Pulse 70 Pulse Source Pulse Oximeter Temp 98.1 F Temp Source Oral Pulse Oximetry (%) 99 Oxygen Delivery Method Room Air Intake Visit Reasons: Extended exam with f/u labs and health maint. Intake Note: patient scheduled for extended exam pt refused yearly questionnaire Database Software Technician Required: Yes Database Software Technician Language: Sleeping Car Porter Name: janet [id number] Information Interpreted: clinical only Is last menstrual period known: No Post menopausal: Yes Patient : No Allergies codeine [CODEINE] Allergy (Severe, Verified 01/21/25 09:11) VOMITING buprenorphine Allergy (Intermediate, Verified 01/21/25 09:11) dizziness,nausea, vomiting lisinopril Allergy (Intermediate, Verified 01/21/25 09:11) cough naproxen [Naprosyn] Allergy (Intermediate, Verified 01/21/25 09:11) vomitting Penicillins [PENICILLINS] Allergy (Intermediate, Verified 01/21/25 09:11) RASH Medication List - Last Reconciled 01/21/25 by Juan Medellin MD acetaminophen ER (Tylenol 8 Hour) 650 mg PO Q8H PRN albuterol sulfate 90 mcg/actuation (Ventolin HFA) inhalation amitriptyline 25 mg PO BEDTIME azelastine intranasal blood pressure monitor Automatic, Digital. Dx: I10. Daily As directed, 999 days/lifetime blood sugar diagnostic (FreeStyle Lite Strips) USE NEEDED TWICE A DAY blood-glucose meter (FreeStyle Lite Meter kit) for daily and prn blood sugars cane Daily As directed, 999days/Lifetime. cetirizine 10 mg PO DAILY clonazepam 1 mg PO DAILY PRN 30 days diclofenac sodium 1% (Arthritis Pain (diclofenac)) 2 grams topical QID 30 days diphenhydramine HCl (Benadryl) 25 mg PO TID PRN epinephrine (EpiPen 2-Brooks) 0.3 mg (0.3 mL) IM Q4H PRN 30 days esomeprazole magnesium 40 mg PO DAILY fexofenadine mg PO DAILY fluticasone propionate 50 mcg/actuation 1 spray intranasal DAILY fluticasone propionate 220 mcg/actuation (Flovent HFA) 2 puffs inhalation BID 30 days ibuprofen 600 mg PO TID PRN 30 days lancets (FreeStyle Lancets) 1 gauge topical BID PRN losartan 25 mg PO DAILY 90 days montelukast mg PO DAILY olopatadine 0.1% (Pataday Twice Daily Relief) 1 drp ophthalmic (eye) BID 1 month ondansetron HCl mg PO phentermine 15 mg PO QAM sertraline 200 mg (2 x 100 mg) PO QAM 90 days sucralfate 1 g PO BEDTIME trazodone 50 mg PO BEDTIME PRN 30 days Tobacco use date assessed: 01/21/25 Dental Screening Dental Screen Date: 01/21/25 Did you have a dental visit in the last 12 months?: No Did you have a dental problem in the last 6 months where you did not have access to dental care?: No Was dental information given to patient?: No HPI Extended exam with f/u labs and health maint. HPI Details 59 y/o female presents for an extended exam with f/u labs and health maintenance. Labs drawn 01/13/25. Reviewed labs with pt. Triglycerides 201. TC 151. LDL 76. HDL 42. TSH 0.63. Blood pressure today 110/66, 70p. She is on losartan 25mg daily. Reports hearing changes. Notes hx of hysterectomy. COUNTS INCLUDE 234 BEDS AT [facility] Medical History Prophylactic ovary removal Abnormal Pap smear of cervix HTN, goal below 130/80 History of depression Asthma Surgical History History of esophagogastroduodenoscopy (EGD) History of trigger finger History of bilateral carpal tunnel release History of sleeve gastrectomy History of cholecystectomy Family History Father No problems noted. Mother Stroke Heart attack Uterine cancer Smoker Lung cancer Sister S/P KIERAN-BSO (total abdominal hysterectomy and bilateral salpingo-oophorectomy) Other Mental health disorder Substance use disorder Social History Household Members Other:: daughter Housing: Apartment Alcohol intake: never Patient Tobacco Use Status: Former Tobacco user Tobacco use type: Cigarette Years Smoked: quit 10 yrs ago, started age 42. 1PPD e-Cigarette/Vaping Use: Currently Using Second Hand Smoke Exposure: No service: No Current occupational status: disabled Current occupational exposures/hazards: No Sexual orientation: Straight/Heterosexual Gender identity: Female Cognitive needs: No Hearing needs: No Vision needs: Yes Female Reproductive History Menstrual Age of Menarche: 14 Questionnaire PHQ-9 Over the last 2 weeks, how often have you been bothered by any of the following problems? 41832 - PHQ-9 Billing: Patient declined-do not bill Source: Developed by Drs. Raheel Calix, Willie Mcmullen and colleagues, with an educational janine from [employer]. Thrive Questionnaire Date Thrive assessed: 01/10/25 DICKSON-7 AMB Questionnaire DICKSON-7 Date DICKSON - 7 assessed: 01/14/24 Source: Developed by Drs. Raheel Calix, Yani Vargas, Willie Osorio and colleagues, with an educational janine from [employer]. Review of Systems Const Denies chills, Denies fatigue, Denies fever(s), Denies headache(s) and Denies weakness Eyes Denies change in vision ENT Denies dizziness, Denies headache(s), Denies hearing loss, Denies nasal congestion, Denies sinus pain, Denies sinus pressure and Denies sore throat Card Denies chest pain, Denies lightheadedness, Denies dyspnea and Denies other (palpitations) Resp Denies cough, Denies dyspnea and Denies wheezing GI Denies abdominal pain, Denies melena, Denies hematochezia, Denies change in bowel habits, Denies dyspepsia and Denies nausea Denies hematuria and Denies dysuria Musc Denies abnormal gait, Denies myalgias, Denies arthralgias, Denies numbness and Denies tingling Skin/Breast Denies rash, Denies unusual bruising and Denies wounds Neuro Denies abnormal gait, Denies dizziness, Denies headache(s), Denies memory loss, Denies numbness, Denies Sensory deficit (Neuro), Denies tingling and Denies weakness Psych Denies anxiety, Denies depression and Denies memory loss Endo Denies cold intolerance, Denies fatigue, Denies heat intolerance, Denies polydipsia and Denies polyuria Rocco/Lymph Denies easy bleeding and Denies easy bruising Aller/Immun Denies wheezing Physical exam (Primary Care) Vital Signs: Last Vital Signs Temp 98.1 F 01/21/25 09:20 Pulse 70 01/21/25 09:20 Resp 16 01/21/25 09:20 BP 110/66 01/21/25 09:20 Pulse Ox 99 01/21/25 09:20 Oxygen Delivery Method Room Air 01/21/25 09:20 BMI result Body Mass Index 27.0 Tobacco/Smoking Status: Tobacco use Status Tobacco use date assessed 01/21/25 01/21/25 09:15 Patient Tobacco Use Status Former Tobacco user 01/21/25 08:47 Tobacco use type Cigarette 01/21/25 08:47 e-Cigarette/Vaping Use Currently Using 01/21/25 08:47 Thrive Assessment: Date of Thrive Assessment Date Thrive assessed 01/10/25 01/21/25 08:47 Const General: no acute distress, well developed, alert and awake Nutritional Appearance: well nourished Orientation/consciousness: patient oriented x3 HENMT Head: Yes normocephalic and Yes atraumatic Ears: hearing grossly normal bilaterally and TM's normal bilaterally General nose exam: Normal external nose present and Normal nares present Mouth: Normal oral and palatal mucosa present and moist mucous membranes Teeth and gingiva: dentition normal Throat: Yes posterior oropharynx normal Eyes General: appearance normal, both eyes and all related structures Pupils: Equal, round and reactive pupils present and Pupil accommodation reflex normal EOM: EOMs intact bilaterally Neck Neck: Yes normal visual inspection, Yes no lymphadenopathy and Yes trachea midline Thyroid: Thyroid normal Carotids: no bruits Lymphatic: no lymphadenopathy noted Chest Chest palpation & inspection: normal inspection of the chest Resp Effort & Inspection: normal respiratory effort Auscultation: clear to auscultation bilaterally Cardio Rate: regular rate Rhythm: regular rhythm Heart sounds: S1 normal heart sound present, S2 normal heart sound present, no gallops, no murmurs and no rubs Bruits: no abdominal aortic bruits and no carotid bruits GI Palpation (GI): No Abdominal aortic bruit present, Soft to palpation, nontender, No hepatosplenomegaly present and No Rebound tenderness present Auscultation: normal bowel sounds General: Yes no CVA tenderness Back/Spine/Pelvis Back: no CVA tenderness Cervical Spine: cervical ROM normal and No Cervical spine tenderness Thoracic/Lumbar Spine: thoraco-lumbar ROM normal, No pain with thoraco-lumbar ROM, No thoracic spinal tenderness and No lumbar spinal tenderness Skin Lesions: no lesions Rashes: no rashes Trauma: no lacerations or abrasions Wounds: no wounds Nails: normal Neuro General: patient oriented x3 Cranial nerves: Yes Equal, round and reactive pupils present Cognition (Neuro): normal cognition Gait exam (Neuro): Normal gait present Motor exam (neuro): 5/5 motor strength present throughout Sensory Exam: No Sensory deficit (Neuro) Deep tendon reflexes (DTR's): Right patellar reflex intensity grade: 2+ and Left patellar reflex intensity grade: 2+ Extrem General: Yes normal to inspection and No edema Psych Appearance: grossly normal Affect: normal affect Attitude: cooperative Thought process: Normal thought process present Coding Level of Care Code Est Pt Level 4 (75334) Diagnoses Hypertension I10 Diet-controlled diabetes mellitus E11.9 Breast cancer screening by mammogram Z12.31 Change in hearing H91.90 Sleep apnea G47.30 Screening for cervical cancer Z12.4 Screening for colon cancer Z12.11 Adult general medical examination Z00.00 Assessment & Plan Assessment & Plan (1) Hypertension: Code(s): I10 - Essential (primary) hypertension Category: Medical Plan: Blood?pressure?is?controlled Goal?is?less?than?140/90. Continue?current?medications (2) Diet-controlled diabetes mellitus: Code(s): E11.9 - Type 2 diabetes mellitus without complications Category: Medical Plan: A1c?6.7%. Goal?is?less?than?7% Continue?diet?control (3) Breast cancer screening by mammogram: Code(s): Z12.31 - Encounter for screening mammogram for malignant neoplasm of breast Category: Medical Plan: Mammogram?in?July?showed?no?evidence?of?malignancy Will?continue?annual?screening (4) Change in hearing: Code(s): H91.90 - Unspecified hearing loss, unspecified ear Category: Medical Plan: Patient?notes?hearing?changes Referred?to?audiology (5) Sleep apnea: Code(s): G47.30 - Sleep apnea, unspecified Category: Medical Plan: Moderate?sleep?apnea?but?does?not?tolerate?CPAP.??Pulmonology?is?working?on?getting?her?a?jaw?advancement?device. (6) Screening for cervical cancer: Code(s): Z12.4 - Encounter for screening for malignant neoplasm of cervix Category: Medical Plan: History?of?hysterectomy Followed?by?[facility]?and?I?recommend?she?follow-up?as?advised. (7) Screening for colon cancer: Code(s): Z12.11 - Encounter for screening for malignant neoplasm of colon Category: Medical Plan: Cologuard?test?was?ordered?but?order?has?. Spoke?to?patient?and?I?will?send?a?new?Cologuard?test. (8) Adult general medical examination: Code(s): Z00.00 - Encounter for general adult medical examination without abnormal findings Category: Medical Plan: 59-year-old?female?presents?for?an?extended?exam Orders: Referrals Cologuard Test Z12.11 - Encounter for screening for malignant neoplasm of colon, Z12.12 - Encounter for screening for malignant neoplasm of rectum Audiology Referral H91.90 - Unspecified hearing loss, unspecified ear
--- OUTSIDE RECORDS SUMMARY | 2025-01-21 09:19 | XMS_ITS | Encounter Summary ---
Author Organization [facility] Address [address] [place] [address] Care Team Providers Care Bibliographic Services Specialist Name Role Phone Josesito Mast MD Primary Care Provider + [phone] Reason for Visit * Reason Onset Date Comments Med Refill 01/19/2025 Zepbound w/titra tion Encounter Details Date Type Department Care Team (Late st Contact Info) Description 01/19/2025 Telephone Bariatric Surgery - [place] [address] [address] Eun Littlejohn PA 271 [facility] 120 [place] [address] Med Refill (Zepbound w/titration) Social History Tobacco Use Types Packs/Day Years [...] as of this encounter Progress Notes * Arleth Nunez - 01/19/2025 1:07 PM EDT Patient did well on Zepbound 5 mgs and would like a refill with titration. If appropriate, please send script for Zepbound 7.5 mgs to their pharmacy. The patient does have a follow up in 03/16/2025 documented in this encounter Plan of Treatment Upcoming Encounters Date Type Department Care Team (Late st Contact Info) Description 03/16/2025 9:15 AM EDT Office Visit Bariatric Surgery [facility] [address] [address] Eun Littlejohn, BERONICA [address] [address] documented as of this encounter Visit Diagnoses Not on filedocumented in this encounter Discontinued Medications Medication Sig Discontinue Reason Start Date End Da te tirzepatide, weight loss, (Zepbound) 5 mg/0.5 mL injection Inject 0.5 mL (5 mg total) under the skin every 7 (seven) days for 28 days. 12/25/2024 01/19/2025 documented as of this encounter Care Teams Bibliographic Services Specialist Relationship Specialty Start Date End Date Josesito Mast MD [address] [place] [address] PCP - General Rheumatology 12/02/19 documented as of this encounter
--- OUTSIDE RECORDS SUMMARY | 2025-01-21 09:19 | XMS_ITS | Encounter Summary ---
Author Organization [facility] Address [address] [place] [address] Care Team Providers Care School Child Care Attendant Name Role Phone Josesito Mast MD Primary Care Provider + [phone] Reason for Visit * Reason Onset Date Comments Med Refill 12/23/2024 Zepbound Encounter Details Date Type Department Care Team ([facility] st Contact Info) Description 12/23/2024 Telephone Bariatric Surgery - [place] 175 [facility] [address] [place] [address] Eun Littlejohn PA 271 [facility] 120 [place], [place] [id number] Med Refill (Zepbound) Social History Tobacco Use [...] AM EDT Office Visit Bariatric Surgery - [place] [address] [address] Eun Littlejohn PA [address] [address] documented as of this encounter Visit Diagnoses Not on filedocumented in this encounter Care Teams School Child Care Attendant Relationship Specialty Start Date End Date Josesito Mast MD [address] [place] [address] PCP - General Rheumatology 12/02/19 documented as of this encounter
--- OUTSIDE RECORDS SUMMARY | 2025-01-21 09:19 | XMS_ITS | Clinical Summary ---
Author Organization 175 [facility] Address [address] [place] [address] Phone Care Team Providers Care Beef Pluck Trimmer Name Role Phone Josesito Mast MD Primary Care Provider [phone] Allergies Active Allergy Reactions Criticality Noted Date [...] fexofenadine HCl (FEXOFENADINE ORAL) Take by mouth. Activ e fluticasone propionate (FLONASE) 50 mcg/actuation nasal spray 1 [place] by Nasal route daily. 11/22/19 14 Active FREESTYLE LANCETS [facility] [place] Active blood sugar diagnostic (FreeStyle Lite Strips) [...] EVERY DAY 30 tablet 09/15/20 24 Active Daily-Moe tablet TAKE 1 TABLET BY [...] days. 2 mL 12/01/19 25 025 Discontinued tirzepatide, weight loss, (Zepbound) 5 mg/0.5 mL injection Inject 0.5 mL (5 mg total) under the skin every 7 (seven) days for 28 days. 2 mL 12/25/19 25 025 Discontinued Active Problems Problem Noted Date Diagnosed Date Intestinal malabsorption following gastrectomy 0 07/15/2020 Vitamin D deficiency 07/02/2019 Diabetes mellitus type 2, uncomplicated 03/25/20 19 Arthritis 04/08/2014 Asthma 03/06/2014 Essential hypertension, benign 03/06/2014 Helicobacter pylori infection 03/09/2008 Overview (08/07/2024): Treatment initiation 03/09/08. GERD (gastroesophageal reflux disease) Overview (08/07/2024): History of upper GI endoscopy approximately 2002, [place], [place]. 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 Acute upper respiratory infection 08/07/2007 Allergic rhinitis 08/07/2007 Anxiety state 08/07/2007 Depression 08/07/2007 Calculus of kidney 06/20/2007 Generalized osteoarthrosis 06/20/2007 Iron deficiency anemia 06/20/2007 Encounters Date Type Department Care Team Description 01/19/2025 Telephone Bariatric Surgery [address] [phone] Eun Littlejohn PA Med Refill (Zepbound w/titration) 12/23/2024 Telephone Bariatric Surgery [address] [address] Eun Littlejohn PA Med Refill (Zepbound) 11/28/2024 [facility] [address] [phone] Eun Littlejohn PA Medication Problem (Zepbound) from Last 3 Months Immunizations Name Administration Dates Next Due Influenza trivalent, with pr eservative (Fluzone; Afluria) 6mo and older 09/10/2013,08/03/2008,09/03/2007 Tdap Tetanus diptheria acell ular pertussis (Boostrix; Adacel) 7yo and older 06/02/2008 Surgical History Surgery Date Site/Laterality Comments TUBAL LIGATION PROCEDURE: HISTORICAL TUBAL LIGATION CHOLECYSTECTOMY 1991 PROCEDURE: HISTORICAL CHOLECYSTECTOMY; COMMENT: Laparoscopic cholecystectomy ESOPHAGOGASTRODUODENOSCOPY 04/21/2008 PROCEDURE: TX EGD TRANSORAL BIOPSY SINGLE/MULTIPLE; COMMENT: EGD ok, bx for H. pylori: CARPAL TUNNEL RELEASE Bilateral PROCEDURE: HISTORICAL CARPAL TUNNEL REL OTHER SURGICAL HISTORY Left PROCEDURE: HISTORY OTHER; COMMENT: middle finger, trigger finger release OTHER SURGICAL HISTORY 02/06/2022 PROCEDURE: TX EGD DILATION GASTRIC/DUODENAL STRICTURE; COMMENT: changes consistent [...] History of upper GI endoscopy approximately 2002, [place], [place]. Essential hypertension, benign 03/06/2014 D X:Essential hypertension, benign Depression 08/07/2007 DX:Depression; C OMMENT: [facility] Diabetes mellitus type 2, uncomplicated ([facility]) 03/25/2019 DX:Diabetes mellitus type 2, uncomplicated ([facility]) Arthritis 04/08/2014 DX:Arthritis Class 3 severe obesity due t o excess calories without serious comorbidity with body mass index (BMI) of 40.0 to 44.9 in adult ([facility]) 01/07/2019 DX:Class 3 severe obesity du e to excess calories without serious comorbidity with body mass index (BMI) of 40.0 to 44.9 in adult ([facility]) Family History Medical History Relation Name Comments Lung cancer Mother [place], stroke, [place] cancer Diabetes Sister 1 Hypertension Sister [...] AM EDT Office Visit Bariatric Surgery - [place] 175 [facility] [address] [place] [phone] Eun Littlejohn PA 271 [facility] [address] [place] [address] Health Maintenance Due Date Last Done Comments [...] Pap smear no interpreta tion,abstr acted Result [facility] Provider HEALTH MAINTENANCE Final Result * (ABNORMAL) Hemoglobin A1c (07/02/2019) Pathologist [facility] Hemoglobin A1C 7.8(A) <=6.5 % Blood Venous blood specimen / Unknown Result [facility] Provider LAB BLOOD ORDERABLES Consuelo l Result * Lipid panel (07/02/2019) Pathologist [facility] LDL/HDL Ratio 4 0 - 4 Triglycerides 150 0 - 150 mg/dL Cholesterol 172 0 - 200 mg/dL HDL 46 >=40 mg/dL LDL Cholesterol 96 0 - 100 mg/dL Blood Venous blood specimen / Unknown Result [facility] Provider LAB BLOOD ORDERABLES Consuelo l Result * Hm HIV Screening (11/26/2007) Pathologist [facility] HIV Screening abstracted Result [facility] Provider HEALTH MAINTENANCE Final Result from Last 3 Months or Most Recently Relevant to Health Maintenance Insurance [facility] [place] [address] [facility] [place] [address] Care Teams Beef Pluck Trimmer Relationship Specialty Start Date End Date Josesito Mast MD [address] [place] [address] PCP - General Rheumatology 12/02/19
--- OUTSIDE RECORDS SUMMARY | 2025-01-21 09:19 | XMS_ITS | Clinical Summary ---
Author Organization [facility] Address [address] [place] [address] Care Team Providers Care Hot Mill Worker Name Role Phone Unavailable Primary Care Provider [...]
[2025-01-21 09:20] VITALS: BP 110/66; PULSE 70; RESP 16; TEMP 36.7; O2SAT 99; BMI 27.0
== END 2025-01-21 09:54 | disposition home or self-care (01) ==
LOC: HO.HMCFM 08:48
PROVIDERS: PCP Family Medicine; Visit Provider Family Medicine
DX: I10 Essential (primary) hypertension (principal); E11.9 Type 2 diabetes mellitus without complications; Z12.31 Encounter for screening mammogram for malignant neoplasm of breast; H91.90 Unspecified hearing loss, unspecified ear; G47.30 Sleep apnea, unspecified; Z12.4 Encounter for screening for malignant neoplasm of cervix; Z12.11 Encounter for screening for malignant neoplasm of colon; Z00.00 Encounter for general adult medical examination without abnormal findings

== ENCOUNTER → 2025-01-21 08:47 | Outpatient (BNVA) | payer OTHER, SELFPAY | PROVIDERS: PCP Family Medicine; Visit Provider Family Medicine | DX: Z00.00 Encounter for general adult medical examination without abnormal findings (principal); I10 Essential (primary) hypertension; E11.9 Type 2 diabetes mellitus without complications; H91.90 Unspecified hearing loss, unspecified ear; G47.30 Sleep apnea, unspecified | CPT/HCPCS: 83036; 99212 ==

== ENCOUNTER 2025-01-27 09:48 | Outpatient (REF) | payer OTHER, SELFPAY ==
--- NOTE | 2025-01-27 09:57 | PFT_ITS ---
Flows: FEV1: 124 % of predicted at 2.60 L FVC: 120 % of predicted at 3.14 L FEV1/FVC: 83 % Bronchodilator response: Present in small to medium airways only Volumes: Total lung capacity: 103 % of predicted at 4.30 L Residual volume: 80 % of predicted at 1.10 L Slow vital capacity: 112 % of predicted at 3.21 L Expiratory reserve volume: 134 % of predicted at 0.90 L Diffusion capacity: Normal Impression: No obstructive or restrictive ventilatory defect. Bronchodilator response is present in small to medium airways only. MTDD
[2025-01-27 10:33] VITALS: PULSE 73
--- OUTSIDE RECORDS SUMMARY | 2025-01-27 10:52 | XMS_ITS | Clinical Summary ---
Author Organization [facility] Facility Address [address] [place] [id number] Care Team Providers Care Production Superintendent Name Role Phone Unavailable Primary Care Provider [...]
--- OUTSIDE RECORDS SUMMARY | 2025-01-27 10:52 | XMS_ITS | Clinical Summary ---
Author Organization [facility] Address [address] [place] [address] Phone Care Team Providers Care Railway Signalling Engineer Name Role Phone Josesito Mast MD [...] propionate (FLONASE) 50 mcg/actuation nasal spray 1 Venus by Nasal route daily. 11/22/19 14 Active FREESTYLE LANCETS [facility] Active blood sugar diagnostic (FreeStyle Lite Strips) [...] EVERY DAY 30 tablet 01/09/20 25 Active tirzepatide, weight loss, (Zepbound) 7.5 mg/0.5 mL injection Inject 0.5 mL (7.5 mg total) under the skin every 7 (seven) days for 28 days. 2 mL 01/22/20 25 025 Active Daily-Moe tablet TAKE 1 [...] History of upper GI endoscopy approximately 2002, [place], [place]. 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 Acute upper respiratory infection 08/07/2007 Allergic rhinitis 08/07/2007 Anxiety state 08/07/2007 Depression 08/07/2007 Calculus of kidney 06/20/2007 Generalized osteoarthrosis 06/20/2007 Iron deficiency anemia 06/20/2007 Encounters Date Type Department Care Team Description 01/19/2025 Telephone Bariatric Surgery [address] [phone] Eun Littlejohn PA Med Refill (Zepbound w/titration) 12/23/2024 Telephone Bariatric Surgery [address] [phone] Eun Littlejohn PA Med Refill (Zepbound) 11/28/2024 [place] [facility] [address] [phone] Eun Littlejohn PA Medication Problem (Zepbound) from Last 3 Months Immunizations Name Administration Dates Next Due Influenza trivalent, with pr eservative (Fluzone; Afluria) 6mo and older 09/10/2013,08/03/2008,09/03/2007 Tdap Tetanus diptheria acell ular pertussis (Boostrix; Adacel) 7yo and older 06/02/2008 Surgical History Surgery Date Site/Laterality Comments TUBAL LIGATION PROCEDURE: HISTORICAL TUBAL LIGATION CHOLECYSTECTOMY 1991 PROCEDURE: HISTORICAL CHOLECYSTECTOMY; COMMENT: Laparoscopic cholecystectomy ESOPHAGOGASTRODUODENOSCOPY 04/21/2008 PROCEDURE: ME EGD TRANSORAL BIOPSY SINGLE/MULTIPLE; COMMENT: EGD ok, bx for H. pylori: CARPAL TUNNEL RELEASE Bilateral PROCEDURE: HISTORICAL CARPAL TUNNEL REL OTHER SURGICAL HISTORY Left PROCEDURE: HISTORY OTHER; COMMENT: middle finger, trigger finger release OTHER SURGICAL HISTORY 02/06/2022 PROCEDURE: ME EGD DILATION GASTRIC/DUODENAL STRICTURE; COMMENT: changes consistent [...] History of upper GI endoscopy approximately 2002, [place], [place]. Essential hypertension, benign 03/06/2014 D X:Essential hypertension, benign Depression 08/07/2007 DX:Depression; C OMMENT: [facility] Diabetes mellitus type 2, uncomplicated ([facility]) 03/25/2019 DX:Diabetes mellitus type 2, uncomplicated ([facility]) Arthritis 04/08/2014 DX:Arthritis Class 3 severe obesity due t o excess calories without serious comorbidity with body mass index (BMI) of 40.0 to 44.9 in adult ([facility]) 01/07/2019 DX:Class 3 severe obesity du e to excess calories without serious comorbidity with body mass index (BMI) of 40.0 to 44.9 in adult ([facility]) Family History Medical History Relation Name Comments Lung cancer Mother [place], stroke, ari rine cancer Diabetes Sister 1 [...] AM EDT Office Visit Bariatric Surgery - [place] [address] [facility] [address] [place] [phone] Eun Littlejohn PA [address] [facility] [address] [place] [address] Health Maintenance Due Date Last Done Comments [...] Panel) 07/02/2024 07/02/2019 COVID-19 Vaccine (1 - 2024-2 5 season) 2024 Influenza Vaccine (#1) 2024 [...] Final Result * (ABNORMAL) Hemoglobin A1c (07/02/2019) Hemoglobin A1C 7.8(A) <=6.5 % Blood Venous blood specimen / Unknown Historical Provider LAB BLOOD ORDERABLES Consuelo l Result * Lipid panel (07/02/2019) LDL/HDL Ratio 4 0 - 4 Triglycerides 150 0 - 150 mg/dL Cholesterol 172 0 - 200 mg/dL HDL 46 >=40 mg/dL LDL Cholesterol 96 0 - 100 mg/dL Blood Venous blood specimen / Unknown Historical Provider LAB BLOOD ORDERABLES Consuelo l Result * Hm HIV Screening (11/26/2007) Pathologist [facility] HIV Screening abstracted Historical Provider HEALTH MAINTENANCE Final Result from Last 3 Months or Most Recently Relevant to [place] [id number] [facility] [employer] PLAN Care Teams Railway Signalling Engineer Relationship Specialty Start Date End Date Josesito Mast MD [address] [place] [address] PCP - General Rheumatology 12/02/19
--- OUTSIDE RECORDS SUMMARY | 2025-01-27 10:52 | XMS_ITS | Encounter Summary ---
Author Organization [facility] Address [address] [place] [address] Care Team Providers Care Short Filler Bunch Machine Operator Name Role Phone Josesito Mast MD Primary Care Provider + [phone] Reason for Visit * Reason Onset Date Comments Med Refill 12/23/2024 Zepbound Encounter Details Date Type Department Care Team ([facility] st Contact Info) Description 12/23/2024 Telephone Bariatric Surgery - [place] 175 [facility] 120 [place] [address] Eun Littlejohn PA 271 [facility] 120 [place], [place] [phone] Med Refill (Zepbound) Social History Tobacco Use [...] AM EDT Office Visit Bariatric Surgery - [place] [address] [phone] Eun Littlejohn PA [address] [address] documented as of this encounter Visit Diagnoses Not on filedocumented in this encounter Care Teams Short Filler Bunch Machine Operator Relationship Specialty Start Date End Date Josesito Mast MD [address] [place] [address] PCP - General Rheumatology 12/02/19 documented as of this encounter
--- OUTSIDE RECORDS SUMMARY | 2025-01-27 10:52 | XMS_ITS | Encounter Summary ---
Author Organization [facility] Address [address] [place] [address] Care Team Providers Care Cps Team Lead Name Role Phone Josesito Mast MD Primary Care Provider + [phone] Reason for Visit * Reason Onset Date Comments Med Refill 01/19/2025 Zepbound w/titra tion Encounter Details Date Type Department Care Team ([facility] st Contact Info) Description 01/19/2025 Telephone Bariatric Surgery - [place] [address] [phone] Eun Littlejohn PA 271 [facility] 120 [place] [address] Med Refill (Zepbound w/titration) Social History Tobacco [...] Date End Date tirzepatide, weight loss, (Zepbound) 7.5 mg/0.5 mL injection Inject 0.5 mL (7.5 mg total) under the skin every 7 (seven) days for 28 days. 2 mL 01/21/2025 02/18/2025 documented in this encounter Progress Notes * Arleth Mayra - 01/19/2025 1:07 PM EDT Patient did [...] AM EDT Office Visit Bariatric Surgery - [place] [address] [phone] Eun Littlejohn PA [address] [address] documented as of this encounter Visit Diagnoses Not on filedocumented in this encounter Discontinued Medications Medication Sig Discontinue Reason Start Date End Da te tirzepatide, weight loss, (Zepbound) 5 mg/0.5 mL injection Inject 0.5 mL (5 mg total) under the skin every 7 (seven) days for 28 days. 12/25/2024 01/19/2025 documented as of this encounter Care Teams Cps Team Lead Relationship Specialty Start Date End Date Josesito Mast MD [address] [place] [address] PCP - General Rheumatology 12/02/19 documented as of this encounter
== END 2025-01-27 09:49 | disposition home or self-care (01) ==
LOC: HO.RESP 09:48
PROVIDERS: PCP Family Medicine; Visit Provider Internal Medicine Pulmonary Disease
DX: R05.9 Cough, unspecified (principal)
CPT/HCPCS: 94010; 94640; 94727; 94729; 99212

== ENCOUNTER 2025-01-27 10:29 | Outpatient (AMB) | payer OTHER, SELFPAY ==
--- NOTE | 2025-01-27 10:36 | A.OFFVIS_ITS ---
Vital Signs 01/27/25 10:37 Height 4 ft 11 in Weight 132 lb BMI 26.7 BP 111/62 Blood Pressure Location Lt brachial Position Sitting Pulse 84 Pulse Source Doppler Pulse Oximetry (%) 96 Oxygen Delivery Method Room Air Intake Visit Reasons: Sleep apnea/Same Day PFT Finish Carpenter Required: Yes Finish Carpenter Name: Rufina Cameron Allergies codeine [CODEINE] Allergy (Severe, Verified 01/27/25 10:41) VOMITING buprenorphine Allergy (Intermediate, Verified 01/27/25 10:41) dizziness,nausea, vomiting lisinopril Allergy (Intermediate, Verified 01/27/25 10:41) cough naproxen [Naprosyn] Allergy (Intermediate, Verified 01/27/25 10:41) vomitting Penicillins [PENICILLINS] Allergy (Intermediate, Verified 01/27/25 10:41) RASH HPI HPI Sleep apnea/Same Day PFT: Details: 59-year-old lady, nonsmoker, with underlying history of environmental allergies 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 Patient has been using albuterol MDI with suboptimal control of her symptoms. She did finish her pulmonary function tests. She is not interested in using CPAP machine and has been thinking about using jaw advancement device. She denies recent exacerbations. [facility] Medical History Prophylactic ovary removal Abnormal Pap smear of cervix HTN, goal below 130/80 History of depression Asthma Surgical History History of esophagogastroduodenoscopy (EGD) History of trigger finger History of bilateral carpal tunnel release History of sleeve gastrectomy History of cholecystectomy Family History Father No problems noted. Mother Stroke Heart attack Uterine cancer Smoker Lung cancer Sister S/P KIERAN-BSO (total abdominal hysterectomy and bilateral salpingo- oophorectomy) Other Mental health disorder Substance use disorder Social History (Updated 01/27/25 @ 10:42 by Rufina Maxwell Naveen) Household Members Other:: daughter Housing: Apartment Alcohol intake: never Patient Tobacco Use Status: Former Tobacco user Tobacco use type: Cigarette Years Smoked: quit 10 yrs ago, started age 42. 1PPD e-Cigarette/Vaping Use: Currently Using Frequency of e-Cigarette/Vaping Use: Vape Second Hand Smoke Exposure: No service: No Current occupational status: disabled Current occupational exposures/hazards: No Sexual orientation: Straight/Heterosexual Gender identity: Female Cognitive needs: No Hearing needs: No Vision needs: Yes Female Reproductive History Menstrual Age of Menarche: 14 Review of Systems Const Denies daytime sleepiness, Denies excessive sweating, Denies fatigue, Denies fever(s), Denies lethargy, Denies malaise, Denies night sweats, Denies snoring and Denies weight loss Eyes Denies blurry vision and Denies itchy eyes ENT Denies nasal congestion, Denies post nasal drip, Denies sinus pain, Denies sinus pressure and Denies other ( Thrush) Card Denies chest pain, Denies pedal edema, Denies dyspnea, Denies orthopnea and Denies paroxysmal nocturnal dyspnea Resp Denies cough, Denies hemoptysis, Denies excessive phlegm production, Denies dyspnea, Denies snoring and Denies wheezing GI Denies abdominal pain and Denies heartburn Musc Denies myalgias, Denies arthralgias and Denies joint swelling Skin/Breast Denies rash Neuro Denies memory loss and Denies seizure-like activity Psych Denies abnormal sleep pattern, Denies anxiety and Denies memory loss Endo Denies excessive sweating, Denies fatigue and Denies heat intolerance Rocco/Lymph Denies easy bruising Aller/Immun Denies itchy eyes, Denies seasonal rhinorrhea and Denies wheezing Physical Exam Vital Signs: Last Vital Signs Pulse 84 01/27/25 10:37 BP 111/62 01/27/25 10:37 Pulse Ox 96 01/27/25 10:37 Oxygen Delivery Method Room Air 01/27/25 10:37 BMI result Body Mass Index 26.7 Const General: no acute distress and alert Nutritional Appearance: not obese Orientation/consciousness: Other orientation findings ( oriented) HEENT Head: Yes atraumatic Eyes General: appearance normal, both eyes and all related structures Sclerae: sclerae normal EOM: EOMs intact bilaterally Neck Neck: Yes supple Lymphatic: no lymphadenopathy noted Resp Effort & Inspection: normal respiratory effort and no use of accessory muscles Auscultation: clear to auscultation bilaterally Cardio Rate: regular rate Rhythm: regular rhythm Heart sounds: no gallops, no murmurs and no rubs Skin General skin exam: other ( warm) Extrem General: No clubbing, No cyanosis and No edema Assessment & Plan Assessment & Plan (1) Asthma: Code(s): J45.909 - Unspecified asthma, uncomplicated Category: Medical Plan: Suboptimal control on albuterol MDI. Will add Breo. Results of pulmonary function test reviewed, underlying at least moderate persistent asthma. (2) Environmental allergies: Code(s): Z91.09 - Other allergy status, other than to drugs and biological substances Category: Medical Plan: Now with reasonable control on antigen injections by her allergies and Brea/Zyrtec. If worsens, will consider further immunologic therapy. (3) Sleep apnea: Code(s): G47.30 - Sleep apnea, unspecified Category: Medical Plan: Patient is not interested in CPAP therapy. She is considering utilization of jaw advancement device. Medications: New fluticasone furoate-vilanterol 200-25 mcg/dose (Breo Ellipta) 1 inh inhalation DAILY 60 ea 6RF Discontinued fluticasone propionate 220 mcg/actuation (Flovent HFA) Discontinued Reason: Doctor's Order 2 puffs inhalation BID 30 days 12 grams 8RF Coding Level of Care Code Est Pt Level 4 (02543) Diagnoses Asthma J45.909 Environmental allergies Z91.09 Sleep apnea G47.30
[2025-01-27 10:37] VITALS: BP 111/62; PULSE 84; O2SAT 96; BMI 26.7
--- OUTSIDE RECORDS SUMMARY | 2025-01-27 12:16 | XMS_ITS | Encounter Summary ---
Author Organization [facility] Address [address] [place] [address] Care Team Providers Care Marketing Operations Analyst Name Role Phone Josesito Mast MD Primary Care Provider + [phone] Reason for Visit * Reason Onset Date Comments Med Refill 01/19/2025 Zepbound w/titra tion Encounter Details Date Type Department Care Team ([facility] st Contact Info) Description 01/19/2025 Telephone Bariatric Surgery - [place] [address] [phone] Eun Littlejohn PA [address] [facility] 120 [place] [address] Med Refill (Zepbound w/titration) Social History Tobacco [...] AM EDT Office Visit Bariatric Surgery - [place] [address] [phone] Eun Littlejohn PA [address] [address] documented as of this encounter Visit Diagnoses Not on filedocumented in this encounter Discontinued Medications Medication Sig Discontinue Reason Start Date End Da te tirzepatide, weight loss, (Zepbound) 5 mg/0.5 mL injection Inject 0.5 mL (5 mg total) under the skin every 7 (seven) days for 28 days. 12/25/2024 01/19/2025 documented as of this encounter Care Teams Marketing Operations Analyst Relationship Specialty Start Date End Date Josesito Mast MD [address] [place] [address] PCP - General Rheumatology 12/02/19 documented as of this encounter
--- OUTSIDE RECORDS SUMMARY | 2025-01-27 12:17 | XMS_ITS | Clinical Summary ---
Author Organization [facility] Address [address] [place] [address] Phone Care Team Providers Care Superintendent Custodian Janitor Name Role Phone Josesito Mast MD Primary [...] propionate (FLONASE) 50 mcg/actuation nasal spray 1 [employer] by Nasal route daily. 11/22/19 14 Active FREESTYLE LANCETS [facility] Active blood sugar diagnostic (FreeStyle Lite Strips) [...] History of upper GI endoscopy approximately 2002, [place], [place]. 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 Acute upper respiratory infection 08/07/2007 Allergic rhinitis 08/07/2007 Anxiety state 08/07/2007 Depression 08/07/2007 Calculus of kidney 06/20/2007 Generalized osteoarthrosis 06/20/2007 Iron deficiency anemia 06/20/2007 Encounters Date Type Department Care Team Description 01/19/2025 Telephone Bariatric Surgery [address] [phone] Eun Littlejohn PA Med Refill (Zepbound w/titration) 12/23/2024 Telephone Bariatric Surgery [address] [phone] Eun Littlejohn PA Med Refill (Zepbound) 11/28/2024 [place] Bariat[facility] Surgery [address] [phone] Eun Littlejohn PA Medication Problem (Zepbound) from Last 3 Months Immunizations Name Administration Dates Next Due Influenza trivalent, with pr eservative (Fluzone; Afluria) 6mo and older 09/10/2013,08/03/2008,09/03/2007 Tdap Tetanus diptheria acell ular pertussis (Boostrix; Adacel) 7yo and older 06/02/2008 Surgical History Surgery Date Site/Laterality Comments TUBAL LIGATION PROCEDURE: HISTORICAL TUBAL LIGATION CHOLECYSTECTOMY 1991 PROCEDURE: HISTORICAL CHOLECYSTECTOMY; COMMENT: Laparoscopic cholecystectomy ESOPHAGOGASTRODUODENOSCOPY 04/21/2008 PROCEDURE: [place] EGD TRANSORAL BIOPSY SINGLE/MULTIPLE; COMMENT: EGD ok, bx for H. pylori: CARPAL TUNNEL RELEASE Bilateral PROCEDURE: HISTORICAL CARPAL TUNNEL REL OTHER SURGICAL HISTORY Left PROCEDURE: HISTORY OTHER; COMMENT: middle finger, trigger finger release OTHER SURGICAL HISTORY 02/06/2022 PROCEDURE: [place] EGD DILATION GASTRIC/DUODENAL STRICTURE; COMMENT: changes consistent [...] History of upper GI endoscopy approximately 2002, [place], [place]. Essential hypertension, benign 03/06/2014 D X:Essential hypertension, benign Depression 08/07/2007 DX:Depression; C OMMENT: [facility] Diabetes mellitus type 2, uncomplicated ([facility]) 03/25/2019 DX:Diabetes mellitus type 2, uncomplicated ([facility]) Arthritis 04/08/2014 DX:Arthritis Class 3 severe obesity due t o excess calories without serious comorbidity with body mass index (BMI) of 40.0 to 44.9 in adult ([facility]) 01/07/2019 DX:Class 3 severe obesity du e to excess calories without serious comorbidity with body mass index (BMI) of 40.0 to 44.9 in adult ([facility]) Family History Medical History Relation Name Comments Lung cancer Mother [place], stroke, ari rine cancer Diabetes Sister 1 [...] AM EDT Office Visit Bariatric Surgery - [place] [address] [facility] [address] [place] [phone] Eun Littlejohn PA [address] [facility] [address] [place] [address] Health Maintenance Due Date Last Done Comments [...] Result * Hm HIV Screening (11/26/2007) Pathologist [facility] HIV Screening abstracted Historical Provider HEALTH MAINTENANCE Final Result from Last 3 Months or Most Recently Relevant to [place] [id number] [facility] [email or web address] PLAN Care Teams Superintendent Custodian Janitor Relationship Specialty Start Date End Date Josesito Mast MD [address] [place] [address] PCP - General Rheumatology 12/02/19
--- OUTSIDE RECORDS SUMMARY | 2025-01-27 12:17 | XMS_ITS | Encounter Summary ---
Author Organization [facility] Address [address] [place] [address] Care Team Providers Care Claims Examiner Name Role Phone Josesito Mast MD Primary Care Provider + [phone] Reason for Visit * Reason Onset Date Comments Med Refill 12/23/2024 Zepbound Encounter Details Date Type Department Care Team ([facility] st Contact Info) Description 12/23/2024 Telephone Bariatric Surgery - [place] 175 [facility] 120 [place] [address] Eun Littlejohn PA 271 [facility] 120 [place], [place] [phone] Med Refill (Zepbound) Social History Tobacco Use [...] AM EDT Office Visit Bariatric Surgery - [place] [address] [phone] Eun Littlejohn PA [address] [address] documented as of this encounter Visit Diagnoses Not on filedocumented in this encounter Care Teams Claims Examiner Relationship Specialty Start Date End Date Josesito Mast MD [address] [place] [address] PCP - General Rheumatology 12/02/19 documented as of this encounter
--- OUTSIDE RECORDS SUMMARY | 2025-01-27 12:17 | XMS_ITS | Clinical Summary ---
Author Organization [facility] Facility Address [address] [place] [address] Care Team Providers Care Diversity Manager Name Role Phone Unavailable Primary Care Provider [...]
== END 2025-01-27 10:52 | disposition home or self-care (01) ==
LOC: HO.HPS 10:30
PROVIDERS: PCP Family Medicine; Visit Provider Internal Medicine Pulmonary Disease
DX: J45.909 Unspecified asthma, uncomplicated (principal)
CPT/HCPCS: 94060; 94727; 94729; 99214

== ENCOUNTER 2025-05-01 10:40 | Outpatient (AMB) | payer OTHER, SELFPAY ==
--- NOTE | 2025-05-01 10:46 | A.OFFPC_ITS ---
Vital Signs 05/01/25 10:56 Height 4 ft 11 in Weight 131 lb 2 oz BMI 26.5 BP 102/60 Blood Pressure Location Rt brachial Position Sitting Respiration 14 Pulse 79 Pulse Source Pulse Oximeter Temp 98.0 F Temp Source Oral Pulse Oximetry (%) 96 Oxygen Delivery Method Room Air Intake Visit Reasons: f/u HTN, DM Intake Note: patient is scheduled to follow up for dm htn Fireworks Assembler Required: Yes Fireworks Assembler Name: pt refused Allergies codeine (CODEINE) Allergy (Severe, Verified 05/01/25 10:53) VOMITING buprenorphine Allergy (Intermediate, Verified 05/01/25 10:53) dizziness,nausea, vomiting lisinopril Allergy (Intermediate, Verified 05/01/25 10:53) cough naproxen (Naprosyn) Allergy (Intermediate, Verified 05/01/25 10:53) vomitting Penicillins (PENICILLINS) Allergy (Intermediate, Verified 05/01/25 10:53) RASH Medication List - Last Reconciled 05/01/25 by Juan Medellin MD acetaminophen ER (Tylenol 8 Hour) 650 mg PO Q8H PRN albuterol sulfate 90 mcg/actuation (Ventolin HFA) inhalation amitriptyline 25 mg PO BEDTIME azelastine intranasal blood pressure monitor Automatic, Digital. Dx: I10. Daily As directed, 999 days/lifetime blood sugar diagnostic (FreeStyle Lite Strips) USE NEEDED TWICE A DAY blood-glucose meter (FreeStyle Lite Meter kit) for daily and prn blood sugars cane Daily As directed, 999days/Lifetime. cetirizine 10 mg PO DAILY clonazepam 1 mg PO DAILY PRN 30 days diclofenac sodium 1% (Arthritis Pain (diclofenac)) 2 grams topical QID 30 days diphenhydramine HCl (Benadryl) 25 mg PO TID PRN epinephrine (EpiPen 2-Brooks) 0.3 mg (0.3 mL) IM Q4H PRN 30 days esomeprazole magnesium 40 mg PO DAILY fluticasone furoate-vilanterol 200-25 mcg/dose (Breo Ellipta) 1 inh inhalation DAILY fluticasone propionate 50 mcg/actuation 1 spray intranasal DAILY ibuprofen 600 mg PO TID PRN 30 days lancets (FreeStyle Lancets) 1 gauge topical BID PRN losartan 25 mg PO DAILY 90 days montelukast mg PO DAILY olopatadine 0.1% (Pataday Twice Daily Relief) 1 drp ophthalmic (eye) BID 1 month sertraline 200 mg (2 x 100 mg) PO QAM 90 days sucralfate 1 g PO BEDTIME Tobacco use date assessed: 01/21/25 Dental Screening Dental Screen Date: 01/21/25 HPI f/u HTN, DM HPI Details 59 y/o female presents to f/u HTN, diabe marcelo. BP today 102/60, 79p. She is on losartan 25mg daily. Has complaints of a R knee abrasion. Diet controlled diabetes. A1c today 5.4%. [facility] Medical History Prophylactic ovary removal Abnormal Pap smear of cervix HTN, goal below 130/80 History of depression Asthma Surgical History History of esophagogastroduodenoscopy (EGD) History of trigger finger History of bilateral carpal tunnel release History of sleeve gastrectomy History of cholecystectomy Family History Father No problems noted. Mother Stroke Heart attack Uterine cancer Smoker Lung cancer Sister S/P KIERAN-BSO (total abdominal hysterectomy and bilateral salpingo- oophorectomy) Other Mental health disorder Substance use disorder Social History (Updated 01/27/25 @ 10:42 by Rufina Maxwell Naveen) Household Members Other:: daughter Housing: Apartment Alcohol intake: never Patient Tobacco Use Status: Former Tobacco user Tobacco use type: Cigarette Years Smoked: quit 10 yrs ago, started age 42. 1PPD e-Cigarette/Vaping Use: Currently Using Second Hand Smoke Exposure: No service: No Current occupational status: disabled Current occupational exposures/hazards: No Sexual orientation: Straight/Heterosexual Gender identity: Female Cognitive needs: No Hearing needs: No Vision needs: Yes Female Reproductive History Menstrual Age of Menarche: 14 Questionnaire PHQ-9 Over the last 2 weeks, how often have you been bothered by any of the following problems? 1. Little interest or pleasure in doing things: several days 2. Feeling down, depressed, or hopeless: not at all 3. Trouble falling or staying asleep, or sleeping too much: several days 4. Feeling tired or having little energy: several days 5. Poor appetite or overeating: several days 6. Feeling bad about yourself - or that you are a failure or have let yourself or your family down: several days 7. Trouble concentrating on things, such as reading the newspaper or watching television: several days 8. Moving or speaking so slowly that other people could have noticed. Or the opposite - being so fidgety or restless that you have been moving around a lot more than usual: not at all 9. Thoughts that you would be better off or of hurting yourself in some way: not at all Total score: 6 Depression Screening Interpretation: Positive Depression Screening Follow-up: In treatment Depression Screening Done: Yes 85546 - PHQ-9 Billing: Yes Source: Developed by Drs. Raheel Calix, Yani Vargas, Willie Osorio and colleagues, with an educational janine from [employer]. Thrive Questionnaire Date Thrive assessed: 01/10/25 I am a: Patient What is your living situation today?: I have a steady place to live Within the past 12 months, did the food you bought not last and you didn't have the money to get more?: I choose not to answer this question Within the past 12 months, did you worry whether your food would run out before you got money to buy more?: I choose not to answer this question Do you have trouble paying for medicines?: No Do you have trouble getting transportation to medical appointments?: No Do you have trouble paying your heating and electricity bill?: No Do you have trouble taking care of your child, family member or friend?: No Do you have trouble with day-to-day activities such as bathing, preparing meals, shopping, managing finances, etc.?: Yes Are you currently unemployed and looking for a job?: No Are you interested in more education?: No Please select the resources that you would like help with: None Currently or been in a relationship where the following occur: No concerns reported THRIVE Score: 0 DICKSON-7 AMB Questionnaire DICKSON-7 Date DICKSON - 7 assessed: 01/14/24 Source: Developed by Drs. Raheel Calix, Willie Mcmullen and colleagues, with an educational janine from [employer]. Physical exam (Primary Care) Vital Signs: Last Vital Signs Temp 98.0 F 05/01/25 10:56 Pulse 79 05/01/25 10:56 Resp 14 05/01/25 10:56 BP 102/60 05/01/25 10:56 Pulse Ox 96 05/01/25 10:56 Oxygen Delivery Method Room Air 05/01/25 10:56 BMI result Body Mass Index 26.5 Tobacco/Smoking Status: Tobacco use Status Tobacco use date assessed 01/21/25 05/01/25 10:47 Patient Tobacco Use Status Former Tobacco user 05/01/25 10:47 Tobacco use type Cigarette 05/01/25 10:47 e-Cigarette/Vaping Use Currently Using 05/01/25 10:47 PHQ-9: PHQ-9 Score PHQ-9: Total score 6 05/01/25 11:02 Depression Screening Interpretation: Positive Depression Screening Follow-up: In treatment Thrive Assessment: Date of Thrive Assessment Date Thrive assessed 01/10/25 05/01/25 10:47 Currently or been in a relationship where the following occur: No concerns reported Coding Level of Care Code Est Pt Level 4 (94373) Diagnoses Hypertension I10 Diet-controlled diabetes mellitus E11.9 Screening for colon cancer Z12.11 Skin abrasion T14.8XXA Additional Codes PHQ-9 - 73794 - PHQ-9 Billing: Yes ([id number]) Assessment & Plan Assessment & Plan (1) Hypertension: Code(s): I10 - Essential (primary) hypertension Category: Medical Plan: Blood?pressure?is?controlled.??Goal?is?less?than?140/90 Continue?current?medication (2) Diet-controlled diabetes mellitus: Code(s): E11.9 - Type 2 diabetes mellitus without complications Category: Medical Plan: A1c?5.4%.??Good?control.??Goal?is?less?than?7.0% Continue?diet?control (3) Screening for colon cancer: Code(s): Z12.11 - Encounter for screening for malignant neoplasm of colon Category: Medical Plan: Had?ordered?Cologuard?test?but?patient?has?not?received?yet Reordered (4) Skin abrasion: Code(s): T14.8XXA - Other injury of unspecified body region, initial encounter Category: Medical Plan: Abrasion?at?right?knee No?evidence?of?infection She?can?use?bacitracin?ointment?and?a?nonstick?bandage?for?a?couple?more?days Orders: Referrals Cologuard Test Z12.11 - Encounter for screening for malignant neoplasm of colon, Z12.12 - Encounter for screening for malignant neoplasm of rectum Medications: Changed From blood-glucose meter (FreeStyle Lite Meter kit) for daily and prn blood sugars 1 ea 0RF E11.9 - Type 2 diabetes mellitus without complications To blood-glucose meter (FreeStyle Lite Meter kit) Test Blood sugar twice a day, 999 days 1 ea 0RF E11.9 - Type 2 diabetes mellitus without complications From lancets (FreeStyle Lancets) 1 gauge topical BID PRN hypoglycemia E11.9 - Type 2 diabetes mellitus without complications To lancets (FreeStyle Lancets) Test Blood sugar twice a day 1 gauge topical BID 200 lancets 3RF 90 days E11.9 - Type 2 diabetes mellitus without complications From blood sugar diagnostic (FreeStyle Lite Strips) USE NEEDED TWICE A DAY 50 ea 1RF E11.9 - Type 2 diabetes mellitus without complications To blood sugar diagnostic (FreeStyle Lite Strips) Test Blood sugar twice a day. 90 days 200 ea 3RF E11.9 - Type 2 diabetes mellitus without complications
[2025-05-01 10:56] VITALS: BP 102/60; PULSE 79; RESP 14; TEMP 36.7; O2SAT 96; BMI 26.5
--- OUTSIDE RECORDS SUMMARY | 2025-05-01 11:07 | XMS_ITS | Clinical Summary ---
Author Organization [facility] Facility Address [address] [address] Care Team Providers Care Electrical Prospecting Supervisor Name Role Phone Unavailable Primary Care [...] (1 of 3 - 19+ 3-dose series) 07/09 Colorectal Cancer Screening: Annual FOBT 2016 Colorectal Cancer Screening: Colonoscopy 2016 Colorectal Cancer Screening: Sigmoidoscopy 2016 Pneumococcal Vaccine: 50+ Years (1 of 1 - PCV) 017 Influenza Vaccine (Season Ended) 2025
== END 2025-05-01 11:35 | disposition home or self-care (01) ==
LOC: HO.HMCFM 10:41
PROVIDERS: PCP Family Medicine; Visit Provider Family Medicine
DX: I10 Essential (primary) hypertension (principal); E11.9 Type 2 diabetes mellitus without complications; Z12.11 Encounter for screening for malignant neoplasm of colon; T14.8XXA Other injury of unspecified body region, initial encounter

== ENCOUNTER → 2025-05-01 10:40 | Outpatient (BNVA) | payer OTHER, SELFPAY | PROVIDERS: PCP Family Medicine; Visit Provider Family Medicine | DX: E11.9 Type 2 diabetes mellitus without complications (principal); I10 Essential (primary) hypertension; S80.211A Abrasion, right knee, initial encounter; X58.XXXA Exposure to other specified factors, initial encounter; Y93.9 Activity, unspecified; Y92.9 Unspecified place or not applicable; Y99.9 Unspecified external cause status | CPT/HCPCS: 83036; 96127; 99212 ==

== ENCOUNTER 2025-07-22 11:40 | Outpatient (REF) | payer OTHER, SELFPAY ==
--- OUTSIDE RECORDS SUMMARY | 2025-07-22 14:53 | XMS_ITS | Clinical Summary ---
Author Organization [facility] Facility Address [address] [address] Care Team Providers Care General Laborer Name Role Phone Unavailable Primary Care Provider [...] of 1 - PCV) 017 Influenza Vaccine (#1) 2025
--- OUTSIDE RECORDS SUMMARY | 2025-07-22 14:53 | XMS_ITS | Clinical Summary ---
Author Organization [facility] Address [address] [place] [address] Phone Care Team Providers Care Hospital Housekeeper Name Role Phone Josesito Mast MD Primary [...] propionate (FLONASE) 50 mcg/actuation nasal spray 1 Ramona by Nasal route daily. 11/22/19 14 Active [...] EVERY DAY 30 tablet 09/15/20 24 Active multivitamin (Daily-Moe, with folic acid,) tablet TAKE 1 TABLET BY MOUTH EVERY DAY 90 tablet 01/29/20 25 Active tirzepatide, weight loss, (Zepbound) 10 mg/0.5 mL injectionIndic ations:Overwei ght (BMI 25.0-29.9) Inject 0.5 mL (10 mg total) under the skin every 7 (seven) days. 2 mL 06/24/20 25 Active tirzepatide, weight loss, (Zepbound) 7.5 mg/0.5 mL injection Inject 0.5 mL (7.5 mg total) under the skin every 7 (seven) days. 2 mL 06/19/20 25 025 Discontinued ondansetron (ZOFRAN) 4 mg tablet Take 1 tablet (4 mg total) by mouth every 8 (eight) hours if needed for nausea or vomiting for up to 7 days. 21 tablet 06/24/20 25 025 Active Problems Problem Noted Date Diagnosed Date Intestinal malabsorption following gastrectomy 0 07/15/2020 Vitamin D deficiency 07/02/2019 Diabetes mellitus type 2, un complicated ([facility] V24, [facility] V28) 03/25/2019 Arthritis 04/08/2014 Asthma 03/06/2014 Essential hypertension, benign 03/06/2014 Helicobacter pylori infection 03/09/2008 Overview (08/07/2024): Treatment initiation 03/09/08. GERD (gastroesophageal reflux disease) Overview (08/07/2024): History of upper GI endoscopy approximately 2002, [place], [place]. 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 Acute upper respiratory infection 08/07/2007 Allergic rhinitis 08/07/2007 Anxiety state 08/07/2007 Depression 08/07/2007 Calculus of kidney 06/20/2007 Generalized osteoarthrosis 06/20/2007 Iron deficiency anemia 06/20/2007 Encounters Date Type Department Care Team Description 06/24/2025 9:15 AM EDT Office Visit Bariatric Surgery - [address] [place] [address] Eun Littlejohn PA Overweight (BMI 25.0-29.9) (Primary Dx) 05/04/2025 Telephone Bariatric Surgery [facility] [address] [facility] [address] [place] [address] Eun Littlejohn PA from Last 3 Months Immunizations Name Administration Dates Next Due Influenza trivalent, with pr eservative (Fluzone; Afluria) 6mo and older 09/10/2013,08/03/2008,09/03/2007 Tdap Tetanus diptheria acell ular pertussis (Boostrix; Adacel) 7yo and older 06/02/2008 Surgical History Surgery Date Site/Laterality Comments TUBAL LIGATION PROCEDURE: HISTORICAL TUBAL LIGATION CHOLECYSTECTOMY 1991 PROCEDURE: HISTORICAL CHOLECYSTECTOMY; COMMENT: Laparoscopic cholecystectomy ESOPHAGOGASTRODUODENOSCOPY 04/21/2008 PROCEDURE: MS EGD TRANSORAL BIOPSY SINGLE/MULTIPLE; COMMENT: EGD ok, bx for H. pylori: CARPAL TUNNEL RELEASE Bilateral PROCEDURE: HISTORICAL CARPAL TUNNEL REL OTHER SURGICAL HISTORY Left PROCEDURE: HISTORY OTHER; COMMENT: middle finger, trigger finger release OTHER SURGICAL HISTORY 02/06/2022 PROCEDURE: MS EGD DILATION GASTRIC/DUODENAL STRICTURE; COMMENT: changes consistent [...] History of upper GI endoscopy approximately 2002, [place], [place]. Essential hypertension, benign 03/06/2014 D X:Essential hypertension, benign Depression 08/07/2007 DX:Depression; C OMMENT: [facility] Diabetes mellitus type 2, uncomplicated ([facility] V24, [facility] V28) 03/25/2019 DX:Diabetes mellitus type 2, uncomplicated ([facility]) Arthritis 04/08/2014 DX:Arthritis Class 3 severe obesity due t o excess calories without serious comorbidity with body mass index (BMI) of 40.0 to 44.9 in adult ([facility] V24, [facility] V28) 01/07/2019 DX:Class 3 severe obesity du e to excess calories without serious comorbidity with body mass index (BMI) of 40.0 to 44.9 in adult ([facility]) Family History Medical History Relation Name Comments Lung cancer Mother [place], stroke, [place] cancer Diabetes Sister 1 Hypertension Sister [...] Sign Reading Time Taken Comments Blood Pressure 119/76 06/24/2025 9:12 AM EDT Pulse 64 06/24/2025 9:12 AM EDT Temperature - - Respiratory Rate - - Oxygen Saturation - - Inhaled Oxygen Concentration - - Weight 58.4 kg (128 lb 12.8 oz) 06/24/2025 9:12 AM EDT Height 149.9 cm (4' 11 ) 06/24/2025 9:12 AM EDT Body Mass Index 26.01 06/24/2025 9:12 AM EDT Plan of Treatment Upcoming Encounters Date Type Department Care Team (Late st Contact Info) Description 09/24/2025 9:45 AM EST Office Visit Bariatric Surgery - [address] [place] [address] Eun Littlejohn PA [address] [place] [phone] Health Maintenance Due Date Last Done Comments Breast Cancer Screening 1967 Diabetes: Annual Foot Exam 1977 Diabetes: Annual Retina Eye Exam 1977 Hepatitis B Vaccines (1 of 3 - 19+ 3-dose series) 1986 Pneumococcal Vaccine: 50+ Years (1 of 2 - PCV) 1986 Zoster Vaccines (1 of 2) 2017 DTaP,Tdap,and Td Vaccines (2 - Td or Tdap) 06/02/2018 06/02/2008 Cervical Cancer Screening: Pap Smear 07/29/2022 07/29/2019, 12/08/2013 Colorectal Cancer Screening: Colonoscopy 10/10/2022 Hepatitis C Screening 10/10/2022 Social Influencers of Health Screening 10/10/2022 Diabetes: Annual Urine Albumin-Creatinine Ratio (uACR) 10/18/2022 Diabetes: Blood Sugar Control Test (HGBA1C) 10/18/2022 07/02/2019 Diabetes: Annual GFR (Glomerular Filtration Rate) 10/02/2023 10/02/2022 Hypertension/CHF/CAD Annual BMP Blood Test 10/02/2023 10/02/2022 Cholesterol Screening (Lipid Panel) 07/02/2024 07/02/2019 Depression Screening 11/12/2024 COVID-19 Vaccine ( season) 2025 11/08/2022, 06/06/2022, 09/23/2021, Additional history exists Influenza Vaccine (#1) 2025 , 09/24/2020, 11/13/2019, Additional history exists HIV Screening Completed 11/26/2007 HIB Vaccines Aged [...] age to complete this topic Meningococcal B Vaccine Aged Out No l onger eligible based on patient's age to complete this topic RSV Immunization Patients Under 20 months Aged Out No longer eligible based on [...] (07/29/2019) Pap smear no interpreta tion,abstr acted Historical Provider HEALTH MAINTENANCE Final Result * [...] LAB BLOOD ORDERABLES Consuelo l Result * HIV Screening (11/26/2007) Pathologist [facility] HIV Screening abstracted [facility] Provider HEALTH MAINTENANCE Final Result from Last 3 Months or Most Recently Relevant to Health [place] [phone] [facility] [address] Care Teams Hospital Housekeeper Relationship Specialty Start Date End Date Josesito Mast MD [address] [place] [address] PCP - General Rheumatology 12/02/19
== END 2025-07-22 11:41 | disposition home or self-care (01) ==
LOC: HO.MAMMO 11:40
PROVIDERS: PCP Family Medicine; Visit Provider Family Medicine
DX: Z12.31 Encounter for screening mammogram for malignant neoplasm of breast (principal)
CPT/HCPCS: 77063; 77067

== ENCOUNTER → 2025-07-22 12:00 | Outpatient (BNV) | payer OTHER, SELFPAY | PROVIDERS: PCP Family Medicine; Visit Provider Internal Medicine | DX: Z12.31 Encounter for screening mammogram for malignant neoplasm of breast (principal) | CPT/HCPCS: 77063; 77067 ==

== ENCOUNTER 2025-08-03 10:29 | Outpatient (AMB) | payer OTHER, SELFPAY ==
--- NOTE | 2025-08-03 10:54 | A.OFFPC_ITS ---
Vital Signs 08/03/25 11:00 Height 4 ft 11 in Weight 126 lb 4 oz BMI 25.5 BP 112/70 Blood Pressure Location Rt brachial Position Sitting Respiration 15 Pulse 68 Pulse Source Pulse Oximeter Temp 98.2 F Temp Source Temporal Artery Scan Pulse Oximetry (%) 98 Oxygen Delivery Method Room Air Intake Visit Reasons: f/u diabetes, HTN Intake Note: Margot presents in the office today for a follow up to hypertension and diabetes. Allergies codeine (CODEINE) Allergy (Severe, Verified 08/03/25 10:57) VOMITING buprenorphine Allergy (Intermediate, Verified 08/03/25 10:57) dizziness,nausea, vomiting lisinopril Allergy (Intermediate, Verified 08/03/25 10:57) cough naproxen (Naprosyn) Allergy (Intermediate, Verified 08/03/25 10:57) vomitting Penicillins (PENICILLINS) Allergy (Intermediate, Verified 08/03/25 10:57) RASH Tobacco use date assessed: 08/03/25 Dental Screening Dental Screen Date: 08/03/25 Did you have a dental visit in the last 12 months?: No Did you have a dental problem in the last 6 months where you did not have access to dental care?: No Was dental information given to patient?: Patient declined HPI f/u diabetes, HTN HPI Details 60 y/o female presents to f/u diabetes, HTN. BP today 112/70, 68p. She is on losartan 25mg daily. A1c today 08/03/25 5.5%. Diet controlled diabetes. [facility] Medical History Prophylactic ovary removal Abnormal Pap smear of cervix HTN, goal below 130/80 History of depression Asthma Surgical History History of esophagogastroduodenoscopy (EGD) History of trigger finger History of bilateral carpal tunnel release History of sleeve gastrectomy History of cholecystectomy Family History (Reviewed 08/03/25 @ 11:00 by Conchita Arreguin [facility]) Father No problems noted. Mother Stroke Heart attack Uterine cancer Smoker Lung cancer Sister S/P KIERAN-BSO (total abdominal hysterectomy and bilateral salpingo- oophorectomy) Other Mental health disorder Substance use disorder Social History (Updated 08/03/25 @ 11:00 by ASHLEY Nolasco Household Members Other:: daughter Housing: Apartment Alcohol intake: never Patient Tobacco Use Status: Former Tobacco user Tobacco use type: Cigarette Years Smoked: quit 10 yrs ago, started age 42. 1PPD e-Cigarette/Vaping Use: Currently Using Second Hand Smoke Exposure: No service: No Current occupational status: disabled Current occupational exposures/hazards: No Sexual orientation: Straight/Heterosexual Gender identity: Female Cognitive needs: No Hearing needs: No Vision needs: Yes Female Reproductive History Menstrual Age of Menarche: 14 Questionnaire Thrive Questionnaire Date Thrive assessed: 01/10/25 I am a: Patient What is your living situation today?: I have a steady place to live Within the past 12 months, did the food you bought not last and you didn't have the money to get more?: I choose not to answer this question Within the past 12 months, did you worry whether your food would run out before you got money to buy more?: I choose not to answer this question Do you have trouble paying for medicines?: No Do you have trouble getting transportation to medical appointments?: No Do you have trouble paying your heating and electricity bill?: No Do you have trouble taking care of your child, family member or friend?: No Do you have trouble with day-to-day activities such as bathing, preparing meals, shopping, managing finances, etc.?: Yes Are you currently unemployed and looking for a job?: No Are you interested in more education?: No Please select the resources that you would like help with: None Currently or been in a relationship where the following occur: No concerns reported THRIVE Score: 0 DICKSON-7 AMB Questionnaire DICKSON-7 Date DICKSON - 7 assessed: 01/14/24 Source: Developed by Drs. Raheel Calix, Yani Vargas, Willie Osorio and colleagues, with an educational janine from [employer]. Physical exam (Primary Care) Vital Signs: Last Vital Signs Temp 98.2 F 08/03/25 11:00 Pulse 68 08/03/25 11:00 Resp 15 08/03/25 11:00 BP 112/70 08/03/25 11:00 Pulse Ox 98 08/03/25 11:00 Oxygen Delivery Method Room Air 08/03/25 11:00 BMI result Body Mass Index 25.5 Tobacco/Smoking Status: Tobacco use Status Tobacco use date assessed 08/03/25 08/03/25 11:04 Patient Tobacco Use Status Former Tobacco user 08/03/25 11:00 Tobacco use type Cigarette 08/03/25 11:00 e-Cigarette/Vaping Use Currently Using 08/03/25 11:00 Thrive Assessment: Date of Thrive Assessment Date Thrive assessed 01/10/25 08/03/25 10:54 Currently or been in a relationship where the following occur: No concerns reported Coding Level of Care Code Est Pt Level 4 (41892) Diagnoses Diabetes type 2, no ocular involvement E11.9 Hypertension I10 Hip pain M25.559 Assessment & Plan Assessment & Plan (1) Diabetes type 2, no ocular involvement: Onset Date: Unknown Code(s): E11.9 - Type 2 diabetes mellitus without complications Category: Medical Plan: A1c 5.5%. Good control. Goal is less than 7% Continue diet control (2) Hypertension: Code(s): I10 - Essential (primary) hypertension Category: Medical Plan: Blood pressure appears well controlled. Goal is less than 140/90 Continue losartan (3) Hip pain: Code(s): M25.559 - Pain in unspecified hip Category: Medical Plan: Left lateral hip pain Likely muscular or tendinopathy Recommended ice/heat and NSAIDs Referred for physical therapy Orders: Orders AMB Hemoglobin A1c Today E11.9 - Type 2 diabetes mellitus without complications PT Evaluation and Treatment Today M25.559 - Pain in unspecified hip
[2025-08-03 11:00] VITALS: BP 112/70; PULSE 68; RESP 15; TEMP 36.8; O2SAT 98; BMI 25.5
--- OUTSIDE RECORDS SUMMARY | 2025-08-03 12:49 | XMS_ITS | Clinical Summary ---
Author Organization [facility] Address [address] [place] [address] Phone Care Team Providers Care Clinical Rehabilitation Coordinator Name Role Phone Josesito Mast MD Primary [...] propionate (FLONASE) 50 mcg/actuation nasal spray 1 [place] by Nasal route daily. 11/22/19 14 Active FREESTYLE LANCETS [facility] Active blood sugar diagnostic (FreeStyle Lite Strips) [...] EVERY DAY 90 tablet 01/29/20 25 Active ondansetron (ZOFRAN) 4 mg tablet TAKE 1 TABLET (4 MG TOTAL) BY MOUTH EVERY 8 HOURS IF NEEDED FOR NAUSEA OR VOMITING FOR UP TO 7 DAYS. 21 tablet 07/27/20 25 Active tirzepatide, weight loss, (Zepbound) 12.5 mg/0.5 mL injection Inject 0.5 mL (12.5 mg total) under the skin every 7 (seven) days. 2 mL 07/30/20 25 025 Active ondansetron (ZOFRAN) 4 mg tablet Take 1 tablet (4 mg total) by mouth every 8 (eight) hours if needed for nausea or vomiting for up to 7 days. 21 tablet 06/24/20 25 025 Discontinued tirzepatide, weight loss, (Zepbound) 10 mg/0.5 mL injectionIndic ations:Overwei ght (BMI 25.0-29.9) Inject 0.5 mL (10 mg total) under the skin every 7 (seven) days. 2 mL 06/24/20 25 025 Discontinued Active Problems Problem Noted Date Diagnosed Date Intestinal malabsorption following gastrectomy 0 07/15/2020 Vitamin D deficiency 07/02/2019 Diabetes mellitus type 2, un complicated (CMS/[facility] V24, [facility] V28) 03/25/2019 Arthritis 04/08/2014 Asthma 03/06/2014 Essential hypertension, benign 03/06/2014 Helicobacter pylori infection 03/09/2008 Overview (08/07/2024): Treatment initiation 03/09/08. GERD (gastroesophageal reflux disease) 8 Overview (08/07/2024): History of upper GI endoscopy approximately 2002, [place], [place]. 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 Acute upper respiratory infection 08/07/2007 Allergic rhinitis 08/07/2007 Anxiety state 08/07/2007 Depression 08/07/2007 Calculus of kidney 06/20/2007 Generalized osteoarthrosis 06/20/2007 Iron deficiency anemia 06/20/2007 Encounters Date Type Department Care Team Description 07/28/2025 Telephone Bariatric Surgery [address] [phone] Eun Littlejohn PA 06/24/2025 9:15 AM EDT Office Visit Bariatric Surgery [address] [phone] Eun Littlejohn PA Overweight (BMI 25.0-29.9) (Primary Dx) 05/04/2025 Telephone Bariatric Surgery [address] [phone] Eun Littlejohn PA from Last 3 Months [...] History of upper GI endoscopy approximately 2002, [place], [place]. Essential hypertension, benign 03/06/2014 D X:Essential hypertension, benign Depression 08/07/2007 DX:Depression; C OMMENT: [facility] Diabetes mellitus type 2, uncomplicated ([facility] V24, [facility] V28) 03/25/2019 DX:Diabetes mellitus type 2, uncomplicated ([facility]) Arthritis 04/08/2014 DX:Arthritis Class 3 severe obesity due t o excess calories without serious comorbidity with body mass index (BMI) of 40.0 to 44.9 in adult ([facility] V24, [facility] V28) 01/07/2019 DX:Class 3 severe obesity du e to excess calories without serious comorbidity with body mass index (BMI) of 40.0 to 44.9 in adult ([facility]) Family History Medical History Relation Name Comments Lung cancer Mother [place], stroke, platinum rine cancer Diabetes Sister 1 Hypertension Sister [...] AM EST Office Visit Bariatric Surgery - [address] [place] [address] Eun Littlejohn, BERONICA [address] [place] [phone] Health Maintenance Due Date Last Done [...] Results * Annual BMP Blood Test (10/02/2022) Pathologist [facility] Annual BMP Blood Test abstracted Historical Provider HEALTH MAINTENANCE Final Result * Pap Smear (07/29/2019) Pathologist [facility] Pap smear no interpreta tion,abstr acted [facility] Provider HEALTH MAINTENANCE Final Result * (ABNORMAL) Hemoglobin A1c (07/02/2019) [facility] Hemoglobin A1C 7.8(A) <=6.5 % Blood Venous blood specimen / Unknown Result [facility] Provider LAB BLOOD ORDERABLES Consuelo l Result * Lipid panel (07/02/2019) [facility] LDL/HDL Ratio 4 0 - 4 Triglycerides 150 0 - 150 mg/dL Cholesterol 172 0 - 200 mg/dL HDL 46 >=40 mg/dL LDL Cholesterol 96 0 - 100 mg/dL Blood Venous blood specimen / Unknown Result [facility] Historical Provider LAB BLOOD ORDERABLES Consuelo l Result * HIV Screening (11/26/2007) [facility] HIV Screening abstracted Result [facility] Provider HEALTH MAINTENANCE Final Result from Last 3 Months or Most Recently Relevant to Health Maintenance Insurance [facility] [place] [id number] [facility] Care Teams Clinical Rehabilitation Coordinator Relationship Specialty Start Date End Date Josesito Mast MD [address] [place] [address] PCP - General Rheumatology 12/02/19
--- OUTSIDE RECORDS SUMMARY | 2025-08-03 12:49 | XMS_ITS | Clinical Summary ---
Author Organization [facility] Facility Address [address] [address] Care Team Providers Care Transportation Mechanic Name Role Phone Unavailable Primary Care Provider [...]
--- OUTSIDE RECORDS SUMMARY | 2025-08-03 12:49 | XMS_ITS | Encounter Summary ---
Author Organization [facility] Address [address] [place] [address] Care Team Providers Care Foreign Broadcast Specialist Name Role Phone Josesito Mast MD Primary Care Provider + [phone] Reason for Visit * Reason Onset Date Comments Med Refill 07/28/2025 Zepbound Encounter Details Date Type Department Care Team ([facility] st Contact Info) Description 07/28/2025 Telephone Bariatric Surgery - [address] [phone] Eun Littlejohn PA [address] [place] [phone] Social History Tobacco Use Types Packs/Day Years [...] encounter Progress Notes * Kasey Vargas - 07/28/2025 10:48 AM EDT Patient did well on Zepbound 10 mgs and would like a refill with titration. If appropriate, please send script for Zepbound 12.5 mgs to their pharmacy. The patient does have a follow up in 09/24/2025 documented in this encounter Plan of Treatment Upcoming Encounters Date Type Department Care Team (Late st Contact Info) Description 09/24/2025 9:45 AM EST Office Visit Bariatric Surgery - [place] [address] [facility] [address] [place] [address] Eun Littlejohn, BERONICA [address] [place] [phone] documented as of this encounter Visit Diagnoses Not on filedocumented in this encounter Care Teams Foreign Broadcast Specialist Relationship Specialty Start Date End Date Josesito Mast MD [address] [place] [address] PCP - General Rheumatology 12/02/19 documented as of this encounter
== END 2025-08-03 11:30 | disposition home or self-care (01) ==
LOC: HO.HMCFM 10:30
PROVIDERS: PCP Family Medicine; Visit Provider Family Medicine
DX: E11.9 Type 2 diabetes mellitus without complications (principal); I10 Essential (primary) hypertension; M25.559 Pain in unspecified hip

== ENCOUNTER → 2025-08-03 10:29 | Outpatient (BNVA) | payer OTHER, SELFPAY | PROVIDERS: PCP Family Medicine; Visit Provider Family Medicine | DX: I10 Essential (primary) hypertension (principal); E11.9 Type 2 diabetes mellitus without complications; M25.559 Pain in unspecified hip | CPT/HCPCS: 83036; 99212 ==

== ENCOUNTER 2025-08-05 10:08 | Outpatient (REF) | payer OTHER, SELFPAY ==
--- NOTE | ~2025-08-05 | US_ITS ---
EXAMINATION: MM DIAGNOSTIC DIGITAL BREAST TOMOSYNTHESIS, RIGHT Limited right breast ultrasound. CLINICAL INFORMATION: Call back from screening for asymmetry in the medial right breast middle depth on CC view. COMPARISON: Mammography: [facility] on PACS. TECHNIQUE: Digital breast tomosynthesis is performed in both the craniocaudal and mediolateral oblique views along with computer-aided detection (CAD). Synthesized 2D images are generated from the tomosynthesis. FINDINGS: There are scattered areas of fibroglandular density. Asymmetry medial right breast CC view middle depth persists is a circumscribed oval mass. No suspicious calcifications or other abnormal findings. Targeted color Doppler ultrasound in the upper outer quadrant from 12-3 o'clock demonstrates a minimally complicated cyst at 1:00 5 cm from nipple measuring 7 x 3 x 5 mm which correlates with the oval mass on mammography and is benign. US/US breast RT limited mamm only IMPRESSION: Minimally complicated cyst in the right breast on ultrasound. Benign. ASSESSMENT: BI-RADS Category 2: Benign RECOMMENDATION: 1 year F/U Results were provided to the patient at time of visit by the technologist. This patient's information was entered into a reminder system with a target due date for their next mammogram. Electronically signed by: Therese Mohamud DO 08/05/2025 12:08 PM EDT
--- OUTSIDE RECORDS SUMMARY | 2025-08-05 12:24 | XMS_ITS | Clinical Summary ---
Author Organization 175 [facility] Address [address] [place] [address] Phone Care Team Providers Care Tile Power Shear Operator Name Role Phone Josesito Mast MD [...] propionate (FLONASE) 50 mcg/actuation nasal spray 1 [place] by Nasal route daily. 11/22/19 14 Active FREESTYLE LANCETS [facility] Active blood sugar diagnostic (FreeStyle [...] 07/02/2019 Diabetes mellitus type 2, un complicated (CMS/[facility] V24, [facility] V28) 03/25/2019 Arthritis 04/08/2014 Asthma 03/06/2014 Essential hypertension, benign 03/06/2014 Helicobacter pylori infection 03/09/2008 Overview (08/07/2024): Treatment initiation 03/09/08. GERD (gastroesophageal reflux disease) 8 Overview (08/07/2024): History of upper GI endoscopy approximately 2002, [place], [place]. 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 Acute upper respiratory infection 08/07/2007 Allergic rhinitis 08/07/2007 Anxiety state 08/07/2007 Depression 08/07/2007 Calculus of kidney 06/20/2007 Generalized osteoarthrosis 06/20/2007 Iron deficiency anemia 06/20/2007 Encounters Date Type Department Care Team Description 07/28/2025 Telephone Bariatric Surgery [address] [place] [phone] Eun Littlejohn PA 06/24/2025 9:15 AM EDT Office Visit Bariatric Surgery [address] [place] [phone] Eun Littlejohn PA Overweight (BMI 25.0-29.9) (Primary Dx) from Last 3 Months Immunizations Name Administration Dates Next Due Influenza trivalent, with pr eservative (Fluzone; Afluria) 6mo and older 09/10/2013,08/03/2008,09/03/2007 Tdap Tetanus diptheria acell ular pertussis (Boostrix; Adacel) 7yo and older 06/02/2008 Surgical History Surgery Date Site/Laterality Comments TUBAL LIGATION PROCEDURE: HISTORICAL TUBAL LIGATION CHOLECYSTECTOMY 1991 PROCEDURE: HISTORICAL CHOLECYSTECTOMY; COMMENT: Laparoscopic cholecystectomy ESOPHAGOGASTRODUODENOSCOPY 04/21/2008 PROCEDURE: CO EGD TRANSORAL BIOPSY SINGLE/MULTIPLE; COMMENT: EGD ok, bx for H. pylori: CARPAL TUNNEL RELEASE Bilateral PROCEDURE: HISTORICAL CARPAL TUNNEL REL OTHER SURGICAL HISTORY Left PROCEDURE: HISTORY OTHER; COMMENT: middle finger, trigger finger release OTHER SURGICAL HISTORY 02/06/2022 PROCEDURE: CO EGD DILATION GASTRIC/DUODENAL STRICTURE; COMMENT: changes consistent [...] History of upper GI endoscopy approximately 2002, [place], [place]. Essential hypertension, benign 03/06/2014 D X:Essential hypertension, benign Depression 08/07/2007 DX:Depression; C OMMENT: [facility] Diabetes mellitus type 2, uncomplicated ([facility] V24, [facility] V28) 03/25/2019 DX:Diabetes mellitus type 2, uncomplicated ([facility]) Arthritis 04/08/2014 DX:Arthritis Class 3 severe obesity due t o excess calories without serious comorbidity with body mass index (BMI) of 40.0 to 44.9 in adult ([facility] V24, [facility] V28) 01/07/2019 DX:Class 3 severe obesity du e to excess calories without serious comorbidity with body mass index (BMI) of 40.0 to 44.9 in adult ([facility]) Family History Medical History Relation Name Comments Lung cancer Mother MD, stroke, [place] ira rine cancer Diabetes Sister 1 Hypertension Sister [...] EST Office Visit Bariatric Surgery - [address] [place] [address] Eun Littlejohn, [address] [phone] Health Maintenance Due Date Last Done [...] 2025 , 09/24/2020, 11/13/2019, Additional history exists RSV Immunization Adult Patients (1 - 1-dose 75+ series) 2042 HIV Screening Completed 11/26/2007 HIB Vaccines Aged [...] Pap smear no interpreta tion,abstr acted Result [facility] Provider HEALTH MAINTENANCE Final Result * (ABNORMAL) Hemoglobin A1c (07/02/2019) Hemoglobin A1C 7.8(A) <=6.5 % Blood Venous blood specimen / Unknown Result [facility] Provider LAB BLOOD ORDERABLES Consuelo l Result * Lipid panel (07/02/2019) LDL/HDL Ratio 4 0 - 4 Triglycerides 150 0 - 150 mg/dL Cholesterol 172 0 - 200 mg/dL HDL 46 >=40 mg/dL LDL Cholesterol 96 0 - 100 mg/dL Blood Venous blood specimen / Unknown Result [facility] Provider LAB BLOOD ORDERABLES Consuelo l Result * HIV Screening (11/26/2007) Pathologist [facility] HIV Screening abstracted Result [facility] Provider HEALTH MAINTENANCE Final Result from Last 3 Months or Most Recently Relevant to Health [place] [phone] [facility] [employer] Care Teams Tile Power Shear Operator Relationship Specialty Start Date End Date Josesito Mast MD [address] [place] [address] PCP - General Rheumatology 12/02/19
--- OUTSIDE RECORDS SUMMARY | 2025-08-05 12:24 | XMS_ITS | Clinical Summary ---
Author Organization [facility] Facility Address [address] [address] Care Team Providers Care Accounting Machine Servicer Name Role Phone Unavailable Primary Care Provider [...]
--- OUTSIDE RECORDS SUMMARY | 2025-08-05 12:24 | XMS_ITS | Encounter Summary ---
Author Organization [facility] Address [address] [place] [address] Care Team Providers Care Grain Mill Worker Name Role Phone Josesito Mast MD Primary Care Provider + [phone] Reason for Visit * Reason Onset Date Comments Med Refill 07/28/2025 Zepbound Encounter Details Date Type Department Care Team ([facility] st Contact Info) Description 07/28/2025 Telephone Bariatric Surgery - [address] [phone] Eun Littlejohn PA [address] [place] [phone] Social History Tobacco Use Types Packs/Day [...] AM EST Office Visit Bariatric Surgery - [place] [address] [facility] [address] [place] [address] Eun Littlejohn, BERONICA [address] [place] [phone] documented as of this encounter Visit Diagnoses Not on filedocumented in this encounter Care Teams Grain Mill Worker Relationship Specialty Start Date End Date Josesito Mast MD [address] [place] [address] PCP - General Rheumatology 12/02/19 documented as of this encounter
== END 2025-08-05 10:09 | disposition home or self-care (01) ==
LOC: HO.MAMMO 10:08
PROVIDERS: PCP Family Medicine; Visit Provider Family Medicine
DX: N64.89 Other specified disorders of breast (principal)
CPT/HCPCS: 76642; 77061; 77065

== ENCOUNTER → 2025-08-05 10:30 | Outpatient (BNV) | payer OTHER, SELFPAY | PROVIDERS: PCP Family Medicine; Visit Provider Internal Medicine | DX: R92.8 Other abnormal and inconclusive findings on diagnostic imaging of breast (principal) | CPT/HCPCS: 76642; 77061; 77065 ==

== ENCOUNTER 2025-08-14 08:43 | Outpatient (AMB) | payer OTHER, SELFPAY ==
--- NOTE | 2025-08-14 08:48 | MHC.PC.OV ---
Vital Signs 08/14/25 08:54 Height 4 ft 11 in Weight 128 lb 6 oz BMI 25.9 BP 112/70 Blood Pressure Location Rt brachial Position Sitting Respiration 15 Pulse 85 Pulse Source Pulse Oximeter Temp 97.8 F Temp Source Temporal Artery Scan Pulse Oximetry (%) 98 Oxygen Delivery Method Room Air Intake Visit Reasons: mammogram results Intake Note: Margot presents in the office today to go over her mammogram results. Allergies codeine (CODEINE) Allergy (Severe, Verified 08/14/25 08:52) VOMITING buprenorphine Allergy (Intermediate, Verified 08/14/25 08:52) dizziness,nausea, vomiting lisinopril Allergy (Intermediate, Verified 08/14/25 08:52) cough naproxen (Naprosyn) Allergy (Intermediate, Verified 08/14/25 08:52) vomitting Penicillins (PENICILLINS) Allergy (Intermediate, Verified 08/14/25 08:52) RASH Medication List - Last Reconciled 08/14/25 by Juan Medellin MD acetaminophen ER (Tylenol 8 Hour) 650 mg PO Q8H PRN albuterol sulfate 90 mcg/actuation (Ventolin HFA) inhalation amitriptyline 25 mg PO BEDTIME azelastine intranasal blood pressure monitor Automatic, Digital. Dx: I10. Daily As directed, 999 days/lifetime blood sugar diagnostic (FreeStyle Lite Strips) Test Blood sugar twice a day. 90 days blood-glucose meter (FreeStyle Lite Meter kit) Test Blood sugar twice a day, 999 days cane Daily As directed, 999days/Lifetime. cetirizine 10 mg PO DAILY clonazepam 1 mg PO DAILY PRN 30 days epinephrine (EpiPen 2-Brooks) 0.3 mg (0.3 mL) IM Q4H PRN 30 days esomeprazole magnesium 40 mg PO DAILY fluticasone furoate-vilanterol 200-25 mcg/dose (Breo Ellipta) 1 inh inhalation DAILY ibuprofen 600 mg PO TID PRN 30 days lancets (FreeStyle Lancets) 1 gauge topical BID 90 days losartan 25 mg PO DAILY 90 days montelukast mg PO DAILY olopatadine 0.1% (Pataday Twice Daily Relief) 1 drp ophthalmic (eye) BID 1 month sertraline 200 mg (2 x 100 mg) PO QAM 90 days sucralfate 1 g PO BEDTIME Tobacco use date assessed: 08/14/25 Dental Screening Dental Screen Date: 08/14/25 Did you have a dental visit in the last 12 months?: No Did you have a dental problem in the last 6 months where you did not have access to dental care?: No Was dental information given to patient?: Patient has dentist HPI mammogram results HPI Details 60 y/o female presents to review her mammogram. Mammogram with additional views 08/05/25 shows: Minimally complicated cyst in the R breast on ultrasound. Benign. Reports L neck/shoulder pain. Pt notes she has had these for years and used to get injections. HPI Comments History of Present Illness Details Documentation assistance for Juan Medellin MD, was provided by Michael Bonilla,? Senior Payroll Administrator on 08/14/2025 at 8:59 AM EST. I, Dr. Medellin, have read, observed, and verified documentation. ? PFSH Medical History Prophylactic ovary removal Abnormal Pap smear of cervix HTN, goal below 130/80 History of depression Asthma Surgical History History of esophagogastroduodenoscopy (EGD) History of trigger finger History of bilateral carpal tunnel release History of sleeve gastrectomy History of cholecystectomy Family History Father No problems noted. Mother Stroke Heart attack Uterine cancer Smoker Lung cancer Sister S/P KIERAN-BSO (total abdominal hysterectomy and bilateral salpingo-oophorectomy) Other Mental health disorder Substance use disorder Social History (Updated 08/14/25 @ 08:49 by Conchita Arreguin CMA) Household Members Other:: daughter Housing: Apartment Alcohol intake: never Patient Tobacco Use Status: Former Tobacco user Tobacco use type: Cigarette Years Smoked: quit 10 yrs ago, started age 42. 1PPD e-Cigarette/Vaping Use: Currently Using Second Hand Smoke Exposure: No Use of substances other than those prescribed or required for medical reasons: No service: No Current occupational status: disabled Current occupational exposures/hazards: No Sexual orientation: Straight/Heterosexual Gender identity: Female Cognitive needs: No Hearing needs: No Vision needs: Yes Female Reproductive History Menstrual Age of Menarche: 14 Questionnaire Thrive Questionnaire Date Thrive assessed: 01/10/25 I am a: Patient What is your living situation today?: I have a steady place to live Within the past 12 months, did the food you bought not last and you didn't have the money to get more?: I choose not to answer this question Within the past 12 months, did you worry whether your food would run out before you got money to buy more?: I choose not to answer this question Do you have trouble paying for medicines?: No Do you have trouble getting transportation to medical appointments?: No Do you have trouble paying your heating and electricity bill?: No Do you have trouble taking care of your child, family member or friend?: No Do you have trouble with day-to-day activities such as bathing, preparing meals, shopping, managing finances, etc.?: Yes Are you currently unemployed and looking for a job?: No Are you interested in more education?: No Please select the resources that you would like help with: None Currently or been in a relationship where the following occur: No concerns reported THRIVE Score: 0 DICKSON-7 AMB Questionnaire DICKSON-7 Date DICKSON - 7 assessed: 01/14/24 Source: Developed by Drs. Raheel Calix, Yani Vargas, Willie Osorio and colleagues, with an educational janine from [employer]. Review of Systems Const Denies chills, Denies fatigue, Denies fever(s), Denies headache(s) and Denies weakness ENT Denies dizziness and Denies headache(s) Card Denies dyspnea Resp Denies cough, Denies dyspnea, Denies wheezing and Denies other (shortness of breath) Musc Denies numbness and Denies tingling Neuro Denies dizziness, Denies headache(s), Denies numbness, Denies tingling and Denies weakness Psych Denies anxiety and Denies depression Endo Denies fatigue Aller/Immun Denies wheezing Physical exam (Primary Care) Vital Signs: Last Vital Signs Temp 97.8 F 08/14/25 08:54 Pulse 85 08/14/25 08:54 Resp 15 08/14/25 08:54 BP 112/70 08/14/25 08:54 Pulse Ox 98 08/14/25 08:54 Oxygen Delivery Method Room Air 08/14/25 08:54 BMI result Body Mass Index 25.9 Tobacco/Smoking Status: Tobacco use Status Tobacco use date assessed 08/14/25 08/14/25 08:51 Patient Tobacco Use Status Former Tobacco user 08/14/25 08:49 Tobacco use type Cigarette 08/14/25 08:49 e-Cigarette/Vaping Use Currently Using 08/14/25 08:49 Thrive Assessment: Date of Thrive Assessment Date Thrive assessed 01/10/25 08/14/25 08:49 Currently or been in a relationship where the following occur: No concerns reported Const General: well developed; No acute distress Nutritional Appearance: well nourished Orientation/consciousness: patient oriented x3 HENMT Head: Yes normocephalic and Yes atraumatic Eyes General: appearance normal, both eyes and all related structures Pupils: Equal, round and reactive pupils present EOM: EOMs intact bilaterally Resp Effort & Inspection: normal respiratory effort Neuro General: patient oriented x3 and gait normal Cranial nerves: Yes Equal, round and reactive pupils present Psych Affect: normal affect Coding Level of Care Code Est Pt Level 4 (04302) Diagnoses Breast cancer screening by mammogram Z12.31 Benign breast cyst in female N60.09 Cervicalgia M54.2 Shoulder pain M25.519 Assessment & Plan Assessment & Plan (1) Breast cancer screening by mammogram: Code(s): Z12.31 - Encounter for screening mammogram for malignant neoplasm of breast Category: Medical (2) Benign breast cyst in female: Code(s): N60.09 - Solitary cyst of unspecified breast Category: Medical (3) Cervicalgia: Code(s): M54.2 - Cervicalgia Category: Medical (4) Shoulder pain: Code(s): M25.519 - Pain in unspecified shoulder Category: Medical Plan Diagnostic mammogram and ultrasound show a minimally complicated cyst read as benign Recommended annual screening Reviewed with patient and reassured her. Will continue annual screening as recommended --- Left neck and shoulder pain at trapezius Recommended ice/heat and she can start physical therapy Use ibuprofen She will call her ortho specialist at [facility] to reconsider another round of steroid injections. Orders: Orders PT Evaluation and Treatment Today M25.519 - Pain in unspecified shoulder, M54.2 - Cervicalgia Medications: Refilled ibuprofen 600 mg PO TID PRN 90 tabs 0RF pain 30 days M54.2 - Cervicalgia
[2025-08-14 08:54] VITALS: BP 112/70; PULSE 85; RESP 15; TEMP 36.6; O2SAT 98; BMI 25.9
--- OUTSIDE RECORDS SUMMARY | 2025-08-14 09:06 | XMS_ITS | Clinical Summary ---
Author Organization 175 [facility] Address [address] [place] [address] Phone Care Team Providers Care Green Marketer Name Role Phone Josesito Mast MD Primary [...] propionate (FLONASE) 50 mcg/actuation nasal spray 1 [place] by Nasal route daily. 11/22/19 14 Active FREEST[place] [facility] blood sugar diagnostic (FreeStyle Lite Strips) [...] 07/02/2019 Diabetes mellitus type 2, un complicated ([facility] V24, [facility] V28) 03/25/2019 Arthritis 04/08/2014 Asthma 03/06/2014 Essential hypertension, benign 03/06/2014 Helicobacter pylori infection 03/09/2008 Overview (08/07/2024): Treatment initiation 03/09/08. GERD (gastroesophageal reflux disease) 8 Overview (08/07/2024): History of upper GI endoscopy approximately 2002, [place], [place]. 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 Acute upper respiratory infection 08/07/2007 Allergic rhinitis 08/07/2007 Anxiety state 08/07/2007 Depression 08/07/2007 Calculus of kidney 06/20/2007 Generalized osteoarthrosis 06/20/2007 Iron deficiency anemia 06/20/2007 Encounters Date Type Department Care Team Description 07/28/2025 Telephone Bariatric Surgery [facility] [address] [facility] [address] [place] [phone] Eun Littlejohn PA 06/24/2025 9:15 AM EDT Office Visit Bariatric Surgery [address] [place] [phone] Eun Littlejohn PA Overweight (BMI 25.0-29.9) (Primary Dx) from Last 3 Months Immunizations Immunization Administration Dates Next Due Influenza trivalent, with pr eservative (Fluzone; Afluria) 6mo and older 09/10/2013,08/03/2008,09/03/2007 Tdap Tetanus diptheria acell ular pertussis (Boostrix; Adacel) 7yo and older 06/02/2008 Surgical History Surgery Date Site/Laterality Comments TUBAL LIGATION PROCEDURE: HISTORICAL TUBAL LIGATION CHOLECYSTECTOMY 1991 PROCEDURE: HISTORICAL CHOLECYSTECTOMY; COMMENT: Laparoscopic cholecystectomy ESOPHAGOGASTRODUODENOSCOPY 04/21/2008 PROCEDURE: UT EGD TRANSORAL BIOPSY SINGLE/MULTIPLE; COMMENT: EGD ok, bx for H. pylori: CARPAL TUNNEL RELEASE Bilateral PROCEDURE: HISTORICAL CARPAL TUNNEL REL OTHER SURGICAL HISTORY Left PROCEDURE: HISTORY OTHER; COMMENT: middle finger, trigger finger release OTHER SURGICAL HISTORY 02/06/2022 PROCEDURE: UT EGD DILATION GASTRIC/DUODENAL STRICTURE; COMMENT: changes consistent [...] History of upper GI endoscopy approximately 2002, [place], [place]. Essential hypertension, benign 03/06/2014 D X:Essential hypertension, benign Depression 08/07/2007 DX:Depression; C OMMENT: [facility] Diabetes mellitus type 2, uncomplicated ([facility] V24, [facility] V28) 03/25/2019 DX:Diabetes mellitus type 2, uncomplicated ([facility]) Arthritis 04/08/2014 DX:Arthritis Class 3 severe obesity due t o excess calories without serious comorbidity with body mass index (BMI) of 40.0 to 44.9 in adult ([facility] V24, [facility] V28) 01/07/2019 DX:Class 3 severe obesity du e to excess calories without serious comorbidity with body mass index (BMI) of 40.0 to 44.9 in adult ([facility]) Family History Medical History Relation Name Comments Lung cancer Mother [place], stroke, [place] cancer Diabetes Sister 1 Hypertension Sister [...] AM EST Office Visit Bariatric Surgery - [address] [place] [address] Eun Littlejohn, [address] [phone] Health Maintenance Due Date Last Done Comments Breast Cancer Screening 1967 Colorectal Cancer Screening: Colonoscopy 1967 Diabetes: Annual Foot Exam 1977 Diabetes: Annual Retina Eye Exam 1977 Hepatitis B Vaccines (1 of 3 - 19+ 3-dose series) 1986 Pneumococcal Vaccine: 50+ Years (1 of 2 - PCV) 1986 Zoster Vaccines (1 of 2) 2017 DTaP,Tdap,and Td Vaccines (2 - Td or Tdap) 06/02/2018 06/02/2008 Cervical Cancer Screening: Pap Smear 07/29/2022 07/29/2019, 12/08/2013 Hepatitis C Screening 10/10/2022 Social Influencers of [...] Pap smear no interpreta tion,abstr acted Result [facility] Provider HEALTH MAINTENANCE Final Result * (ABNORMAL) Hemoglobin A1c (07/02/2019) Hemoglobin A1C 7.8(A) <=6.5 % Blood Venous blood specimen / Unknown Result [facility] Provider LAB BLOOD ORDERABLES Consuelo l Result * Lipid panel (07/02/2019) LDL/HDL Ratio 4 0 - 4 Triglycerides 150 0 - 150 mg/dL Cholesterol 172 0 - 200 mg/dL HDL 46 >=40 mg/dL LDL Cholesterol 96 0 - 100 mg/dL Blood Venous blood specimen / Unknown Result [facility] Provider LAB BLOOD ORDERABLES Consuelo l Result * HIV Screening (11/26/2007) HIV Screening abstracted Result [facility] Provider HEALTH MAINTENANCE Final Result from Last 3 Months or Most Recently Relevant to Health Maintenance Insurance [facility] [place] [id number] [facility] Care Teams Green Marketer Relationship Specialty Start Date End Date Josesito Mast MD [address] [place] [phone] PCP - General Rheumatology 12/02/19
--- OUTSIDE RECORDS SUMMARY | 2025-08-14 09:06 | XMS_ITS | Clinical Summary ---
Author Organization [facility] Facility Address [address] [address] Care Team Providers Care Artist Consultant Name Role Phone Unavailable Primary Care Provider [...]
== END 2025-08-14 09:11 | disposition home or self-care (01) ==
LOC: HO.HMCFM 08:44
PROVIDERS: PCP Family Medicine; Visit Provider Family Medicine
DX: Z12.31 Encounter for screening mammogram for malignant neoplasm of breast (principal); N60.09 Solitary cyst of unspecified breast; M54.2 Cervicalgia; M25.519 Pain in unspecified shoulder

== ENCOUNTER → 2025-08-14 08:43 | Outpatient (BNVA) | payer OTHER, SELFPAY | PROVIDERS: PCP Family Medicine; Visit Provider Family Medicine | DX: M25.512 Pain in left shoulder (principal); M54.2 Cervicalgia; N60.09 Solitary cyst of unspecified breast | CPT/HCPCS: 99212 ==